=== PATIENT | female | born 1965 | race Caucasian/White ===

== ENCOUNTER → 2017-01-18 | Outpatient (CLI) | payer MEDICARE, BC, OTHER ==
--- NOTE | 2017-01-18 16:33 | WOMENS IMAGING REPORT ---
EXAM DESCRIPTION: BILAT SCREENING MAMMO W/CAD COMPLETED DATE/TIME: 01/18/2017 11:31 am REASON FOR STUDY: ROUTINE SCREENING;Z12.31 Z12.31 ENCNTR SCREEN MAMMOGRAM FOR MALIGNANT NEOPLASM OF LEIGH ANN COMPARISON: July 2011 TECHNIQUE: Standard craniocaudal and mediolateral oblique views of each breast recorded using Acuity[employer]ds[employer] l acquisition. LIMITATIONS: None. FINDINGS: No masses, calcifications or architectural distortion. No areas of suspicion. Read with the assistance of CAD. .[facility] - R2 Cenova Version 1.3 .[facility] - R2 Cenova Version 1.3 .[facility] - R2 Cenova Version 2.4 .[facility] - R2 Cenova Version 2.4 .[facility] - R2 [employer] Sawyer Version 9.2 IMPRESSION: NORMAL MAMMOGRAM. BIRADS 1. BREAST DENSITY: b. There are scattered areas of fibroglandular density. BIRAD: 1 NEGATIVE RECOMMENDATION: ROUTINE SCREENING COMMENT: The patient has been notified of the results by letter per SA requirements. Additional no tification policies are in place for contacting patient with suspicious or incomplete findings. Quality ID #[id number]: The [employer] recommends an annual screening mammogram for women aged 40 years or over. This facility utilizes a reminder system to ensure that all patients receive reminder letters, and/or direct phone calls for appointments. This includes reminders for routine scr eening mammograms, diagnostic mammograms, or other Breast Imaging Interventions when appropriate. Th is patient will be placed in the appropriate reminder system. The [employer] (ACR) has developed recommendations for screening MRI of the breast s in certain patient populations, to be used in conjunction with mammography. Breast MRI surveillanc e may be appropriate for women with more than 20% lifetime risk of developing breast cancer as deter mined by genetic testing, significant family history of the disease, or history of mantle radiation f or Hodgkins Disease. ACR Practice Guidelines 2008. TECHNICAL DOCUMENTATION: FINDING NUMBER: (1) ASSESSMENT: (1) JOB ID: [id number] [employer]- All Rights Reserved
== END ==
LOC: WI 11:14
PROVIDERS: ATTEND Physician Assistant Medical
DX: Z12.31 Encounter for screening mammogram for malignant neoplasm of breast (principal)
CPT/HCPCS: 77067; G0202

== ENCOUNTER 2017-04-28 04:17 | Inpatient (IN) | payer MEDICARE, BC, OTHER ==
[2017-04-28] MEDS ORDERED: MORPHINE SULFATE 10 MG/ML INJ IV ONE ×3 (04:28→06:25)
--- NOTE | 2017-04-28 04:45 | ER Document Report ---
ED General - General Chief Complaint: Leg Injury Stated Complaint: FALL,LEFT LEG PAIN Time Seen by Provider: 04/28/17 04:25 Notes: Patient is a 52-year-old female who presents with complaint of possible broken left leg. She says she was standing on kitchen counter trying to hang things about the cabinets. She slipped and fell. She said there is a brief moment that she does not remember after hitting the ground. She did hit her chin. She says she does not have severe headache. No neck pain. She is on blood thinners. She denies any vomiting since then. She says her only pain is really in her left leg she also has chronic low back pain which is unchanged from his chronic state. Patient says a small finishing nail from the molding of the cabinets did poke her in the right buttocks. She does have history of MS. She says she has chronic neuropathy in her feet which is unchanged. She is on MS Contin chronically for low back pain. She received fentanyl in the ambulance. No other complaints at this time. TRAVEL OUTSIDE OF THE [place] IN LAST 30 DAYS: No - Related Data Allergies/Adverse Reactions: cyclobenzaprine HCl [From Flexeril] Allergy (Verified 09/28/15 11:59) hydromorphone HCl [From Dilaudid] Allergy (Verified 09/28/15 11:59) prochlorperazine edisylate [From Compazine] Allergy (Verified 09/28/15 11:59) Sulfa (Sulfonamide Antibiotics) Allergy (Verified 09/28/15 11:59) tylenol #3 Adverse Reaction (Uncoded 09/28/15 11:59) Past Medical History - Social History Smoking Status: Unknown if Ever Smoked Frequency of alcohol use: None Drug Abuse: None Family History: Reviewed & Not Pertinent - Past Medical History Cardiac Medical History: Reports: Hx Hypercholesterolemia, Hx Hypertension Endocrine Medical History: Reports: Hx Diabetes Mellitus Type 2, Hx Hypothyroidism Renal/ Medical History: Reports: Hx Kidney Stones GI Medical History: Reports: Hx Diverticulitis Psychiatric Medical History: Reports: Hx Attention Deficit Hyperactivity Disorder, Hx Depression - anxiety Past Surgical History: Reports: Hx Section, Hx Cholecystectomy, Hx Hysterectomy, Hx Orthopedic Surgery - back x2, Hx Tonsillectomy - Immunizations Hx Diphtheria, Pertussis, Tetanus Vaccination: Yes Review of Systems - Review of Systems Notes: My Normal Review Basic REVIEW OF SYSTEMS: CONSTITUTIONAL : Denies fever, chills, or sweats. Denies recent illness. CARDIOVASCULAR: Denies chest pain. RESPIRATORY: Denies cough, cold, or chest congestion. Denies shortness of breath, difficulty breathing, or wheezing. GASTROINTESTINAL: Denies abdominal pain. Denies nausea, vomiting, or diarrhea. Denies constipation. Last BM: MUSCULOSKELETAL: Left lower leg pain. SKIN: Denies rash or skin lesions. NEUROLOGICAL: Probable loss of consciousness. Denies headache. Denies weakness or paralysis or loss of use of either side. Denies problems with gait or speech. Denies sensory or motor loss. ALL OTHER SYSTEMS REVIEWED AND NEGATIVE. Physical Exam - Vital signs Vitals: Temp Pulse Resp BP Pulse Ox 98.4 F 91 18 142/99 H 98 04/28/17 04:30 04/28/17 04:30 04/28/17 04:30 04/28/17 04:30 04/28/17 04:30 - Notes Notes: General Appearance: Well nourished, alert, cooperative, no acute distress, moderate obvious discomfort. Vitals: reviewed, See vital signs table. Head: no swelling or tenderness to the head Eyes: PERRL, EOMI, Conjuctiva clear Mouth: No decreasd moisture Throat: No tonsillar inflammation, No airway obstruction, No lymphadenopathy Neck: Supple, no neck tenderness, no step-offs or deformities to the neck. Lungs: No wheezing, No rales, No rhonci, No accessory muscle use, good air exchange bilaterally. Heart: Normal rate, Regular rythm, No murmur, no rub Abdomen: Normal BS, soft, No rigidity, No abdominal tenderness, No guarding, no rebound, Back: Tenderness to palpation of the lower back which the patient's is unchanged from its chronic state. She denies any new tenderness to palpation of her back. No step-offs or deformities. Extremities: strength 5/5 in all extremities, good pulses in all extremities, patient has obvious swelling to the anterior aspect of the left herring. Skin: warm, dry, appropriate color, no rash Neuro: speech clear, oriented x 3, normal affect, responds appropriately to questions. Course - Re-evaluation Re-evalutation: 04/28/17 05:12 I concerns the patient may be developing compartment syndrome. She has a classic fracture for swelling in her leg is increased even in the short time that she has been here. She started to get some numbness and tingling over lateral aspect of the leg. Her anterior and lateral compartments are firm. Posterior compartment is also starting to become firm. Still has good pulses. Still is good color in her foot. I did call and speak with Dr. Kirkland, orthopedist, who agrees to come evaluate the patient. 04/28/17 05:51 Dr. Kirkland at bedside 04/28/17 06:29 On reevaluation patient still has swelling and pain to the leg. Dr. Kirkland has evaluated patient and will be taking her emergently to the OR. She still has good pedal pulses in the foot and good color in the foot. I have ordered more pain medicine for her pain control. Dictation of this chart was performed using voice recognition software; therefore, there may be some unintended grammatical errors. - Vital Signs Vital signs: Temp Pulse Resp BP Pulse Ox 98.4 F 91 18 142/99 H 98 04/28/17 04:30 04/28/17 04:30 04/28/17 04:30 04/28/17 04:30 04/28/17 04:30 - Laboratory Result Diagrams: 04/28/17 05:27 04/28/17 05:27 Laboratory results interpreted by me: 04/28/17 04/28/17 05:27 05:27 WBC 16.2 H RDW 15.0 H Absolute Neutrophils 12.2 H Chloride 108 H - EKG Interpretation by Me Additional EKG results interpreted by me: 04/28/17 05:57 EKG is reviewed and interpreted by me. EKG shows normal sinus rhythm with rate of [address] segment elevation or depression. No ischemic T-wave inversions. [place] interval, QRS duration, QTc intervals are within normal range. Old EKG for comparison is from March 13, 2016. Discharge - Discharge Clinical Impression: Compartment syndrome of left lower extremity Qualifiers: Encounter type: initial encounter Qualified Code(s): T79.A22A - Traumatic compartment syndrome of left lower extremity, initial encounter Tibial plateau fracture, left Qualifiers: Encounter type: initial encounter Fracture type: closed Qualified Code(s): S82.142A - Displaced bicondylar fracture of left tibia, initial encounter for closed fracture Condition: Stable Disposition: ADMITTED INPATIENT Admitting Provider: Dr. Kirkland Unit Admitted: OR Referrals: MATILDE WOO MD [Primary Care Provider] - Follow up as needed
[2017-04-28] MEDS ORDERED: DIPH/PERTUSS(ACELL)/TETANUS VAC/PF 0.5 ML SYR (>=10YO) IM ONE (05:17)
--- NOTE | 2017-04-28 05:32 | RADIOLOGY REPORT (SQ) ---
EXAM DESCRIPTION: TIBIA FIBULA LEFT COMPLETED DATE/TIME: 04/28/2017 5:05 am REASON FOR STUDY: trauma , fall. Pain at the proximal left tibia/ fibula. COMPARISON: None. NUMBER OF VIEWS: Two views. TECHNIQUE: Two radiographic images acquired of the left tibia and fibula to include the knee and ank le in at least one projection. LIMITATIONS: None. FINDINGS: MINERALIZATION: Normal. BONES: There is a comminuted, displaced, spiral, acute fracture at the proximal tibia extending to th e lateral tibial plateau and at the knee joint. There is depression of the lateral tibial plateau. There is partially visualized lipohemarthrosis at the left knee joint. There is a comminuted, displaced, acute fracture at the proximal fibula. There is a transverse nondisplaced fracture at the lateral malleolus with well corticated margins and no significant callus formation at the site, suggestive of a remote nonunion fracture. SOFT TISSUES: There is soft tissue swelling at the upper leg. IMPRESSION: 1. Acute, comminuted, displaced, intra-articular fracture at the proximal left tibia wi th depression of the lateral tibial plateau and lipohemarthrosis at the knee joint. 2. Acute, comminuted, displaced fracture at the proximal fibula. 3. Nondisplaced, transverse fracture at the lateral malleolus with well corticated margins, suggestiv e of a remote nonunion fracture. Please correlate with clinical history and point tenderness. TECHNICAL DOCUMENTATION: JOB ID: [id number] 2010 [employer]- All Rights Reserved
[2017-04-28 05:52] LABS: ABSOLUTE BASOPHILS # (AUTO) 0.1 10^3/uL (0.0-0.2); ABSOLUTE EOSINOPHILS # (AUTO) 0.2 10^3/uL (0.0-0.6); ABSOLUTE LYMPHOCYTES (AUTO) 2.9 10^3/uL (0.5-4.7); ABSOLUTE MONOCYTES (AUTO) 0.7 10^3/uL (0.1-1.4); ABSOLUTE NEUT (AUTO) 12.2 10^3/uL (1.7-8.2); BASOPHILS % (AUTO) 0.9 % (0-2); EOSINOPHILS % (AUTO) 1.5 % (0-6); HEMATOCRIT 41.1 % (36.0-47.0); HEMOGLOBIN 13.5 g/dL (12.0-15.5); LYMPHOCYTES % (AUTO) 17.8 % (13-45); MEAN CORPUSCULAR HEMOGLOBIN 29.4 pg (27.0-33.4); MEAN CORPUSCULAR HGB CONC 32.8 g/dL (32.0-36.0); MEAN CORPUSCULAR VOLUME 90 fl (80-97); MONOCYTES % (AUTO) 4.5 % (3-13); PLATELET COUNT 293 10^3/uL (150-450); RED BLOOD COUNT 4.59 10^6/uL (3.72-5.28); SEGMENTED NEUTROPHILS % (AUTO) 75.3 % (42-78); TOTAL CELLS COUNTED % (AUTO) 100 %; WHITE BLOOD COUNT 16.2 10^3/uL (4.0-10.5)
[2017-04-28 06:05] LABS: INTERNATIONAL RATION (INR) 0.85; PROTHROMBIN TIME 12.2 SEC (11.4-15.4)
[2017-04-28 06:07] LABS: ANION GAP 12 (5-19); BLOOD UREA NITROGEN 15 mg/dL (7-20); CALCIUM 9.7 mg/dL (8.4-10.2); CARBON DIOXIDE 23 mmol/L (22-30); CHLORIDE 108 mmol/L (98-107); GLUCOSE 87 mg/dL (75-110); POTASSIUM 4.1 mmol/L (3.6-5.0); SODIUM 143.4 mmol/L (137-145)
--- NOTE | 2017-04-28 06:25 | PDOC H&P ---
History of Present Illness Admission Date/PCP: MATILDE WOO MD Patient complains of: Left lower extremity pain History of Present Illness: MIKKI CHAVEZ is a 52 year old female Past Medical History Cardiac Medical History: Reports: Hyperlipidema, Hypertension Endocrine Medical History: Reports: Diabetes Mellitus Type 2, Hypothyroidism GI Medical History: Reports: Diverticulitis Psychiatric Medical History: Reports: Attention Deficit Hyperactivity Disorder, Depression - anxiety Past Surgical History Past Surgical History: Reports: Section, Cholecystectomy, Hysterectomy , Orthopedic Surgery - back x2, Tonsillectomy Social History Information Source: Patient, [facility] Records Smoking Status: Unknown if Ever Smoked Frequency of Alcohol Use: None Hx Recreational Drug Use: No Hx Prescription Drug Abuse: No Family History Family History: Reviewed & Not Pertinent Parental Family History Reviewed: No Children Family History Reviewed: Yes Sibling(s) Family History Reviewed.: No Medication/Allergy Home Medications: Furosemide [Lasix 80 mg Tablet] 40 mg PO DAILY PRN 05/07/12 Levothyroxine Sodium [Synthroid 0.025 mg Tablet] 112 mcg PO DAILY 05/07/12 Morphine Sulfate [Ms Contin] 120 mg PO QID 05/07/12 Oxycodone HCl 1 tab PO Q4HP PRN 09/28/15 Oxycodone HCl 2 tab PO Q4HP PRN 09/28/15 Allopurinol [Allopurinol] 100 mg PO BID 03/13/16 Alprazolam [Alprazolam] 0.5 mg PO BID PRN 03/13/16 Dextroamphetamine/Amphetamine [Dextroamp-Amphet ER 30 mg Cap] 30 mg PO DAILY Diazepam [Diazepam] 5 mg PO DAILY PRN 03/13/16 Diazepam [Diazepam] 10 mg PO DAILY PRN 03/13/16 Escitalopram Oxalate [Escitalopram Oxalate] 20 mg PO DAILY 03/13/16 Glyburide [Glyburide] 1.25 mg PO DAILY 03/13/16 Ibuprofen [Ibuprofen] 800 mg PO DAILY 03/13/16 Nebivolol HCl [Bystolic] 10 mg PO DAILY 03/13/16 Ondansetron [Ondansetron Odt] 8 mg PO Q8H PRN 03/13/16 Simvastatin [Zocor 10 mg Tablet] 10 mg PO QHS 03/13/16 Allergies/Adverse Reactions: cyclobenzaprine HCl [From Flexeril] Allergy (Verified 09/28/15 11:59) hydromorphone HCl [From Dilaudid] Allergy (Verified 09/28/15 11:59) prochlorperazine edisylate [From Compazine] Allergy (Verified 09/28/15 11:59) Sulfa (Sulfonamide Antibiotics) Allergy (Verified 09/28/15 11:59) tylenol #3 Adverse Reaction (Uncoded 09/28/15 11:59) Review of Systems All systems: as per H Physical Exam Vital Signs: Temp Pulse Resp BP Pulse Ox 36.9 C 91 18 142/99 H 98 04/28/17 04:30 04/28/17 04:30 04/28/17 04:30 04/28/17 04:30 04/28/17 04:30 Physical Exam: Patient is an overweight if not obese middle-aged white female lying on emergency room gurney. Left lower extremities elevated on pillows. The patient is quite distraught and frequently tearful throughout the evaluation. General appearance: PRESENT: disheveled, obese, severe distress Head exam: PRESENT: normocephalic, other - 7 cm area of ecchymosis underneath the chin Respiratory exam: PRESENT: unlabored Cardiovascular exam: PRESENT: RRR Vascular exam: PRESENT: normal capillary refill GI/Abdominal exam: PRESENT: soft Rectal exam: PRESENT: deferred Extremities exam: PRESENT: other - Left lower extremities elevated on pillows. Toenails are coated with red lao. There is brisk capillary refill. Passive range of motion of the great toe causes considerable discomfort. Compartments anterior and posterior are firm probably greater in the anterior and lateral compartments. There is marked tenderness to palpation. Skin is intact. There is no abrasions or erythema. Sensory examination is complicated by prior diagnosis of peripheral neuropathy. Motor function is limited by pain. Neurological exam: PRESENT: alert, awake, oriented to person, oriented to place , oriented to time, oriented to situation. ABSENT: motor sensory deficit Psychiatric exam: PRESENT: agitated, anxious Skin exam: PRESENT: dry, intact, warm. ABSENT: cyanosis, rash Results Laboratory Results: 04/28/17 05:27 04/28/17 05:27 04/28/17 04/28/17 05:27 05:27 WBC 16.2 H RBC 4.59 Hgb 13.5 Hct 41.1 MCV 90 MCH 29.4 MCHC 32.8 RDW 15.0 H Plt Count 293 Seg Neutrophils % 75.3 Lymphocytes % 17.8 Monocytes % 4.5 Eosinophils % 1.5 Basophils % 0.9 Absolute Neutrophils 12.2 H Absolute Lymphocytes 2.9 Absolute Monocytes 0.7 Absolute Eosinophils 0.2 Absolute Basophils 0.1 Sodium 143.4 Potassium 4.1 Chloride 108 H Carbon Dioxide 23 Anion Gap 12 BUN 15 Creatinine 0.86 Est GFR ( Amer) > 60 Est GFR (Non-Af Amer) > 60 Glucose 87 Calcium 9.7 Impressions: Tibia/Fibula X-Ray 04/28/17 04:25 IMPRESSION: 1. Acute, comminuted, displaced, intra-articular fracture at the proximal left tibia with depression of the lateral tibial plateau and lipohemarthrosis at the knee joint. 2. Acute, comminuted, displaced fracture at the proximal fibula. 3. Nondisplaced, transverse fracture at the lateral malleolus with well corticated margins, suggestive of a remote nonunion fracture. Please correlate with clinical history and point tenderness. Status: Imported from PACS Assessment & Plan - Diagnosis (1) Tibial plateau fracture, left Qualifiers: Encounter type: initial encounter Fracture type: closed Qualified Code(s) : S82.142A - Displaced bicondylar fracture of left tibia, initial encounter for closed fracture Is this a current diagnosis for this admission?: Yes Plan: 52-year-old white female with multiple comorbidities including multiple sclerosis diabetes and hypertension and chronic low back pain with peripheral neuropathy who fell off a countertop and sustained a left tibial plateau fracture. This is an extensive and highly comminuted fracture. Patient currently has a mean arterial pressure of approximately 112 and compartment pressures are measuring 80. Plan will be to proceed to the operating room in emergent fashion for application of external fixator and lower extremity fasciotomies. (2) Compartment syndrome of left lower extremity Qualifiers: Encounter type: initial encounter Qualified Code(s): T79.A22A - Traumatic compartment syndrome of left lower extremity, initial encounter Is this a current diagnosis for this admission?: Yes Plan: Plan for 4 compartment fasciotomies left lower extremity - Time Time Spent: 50 to 70 Minutes Anticipated discharge: Other Within: Other - Plan Summary Plan Summary: Emergent surgical intervention
--- NOTE | 2017-04-28 06:27 | Operative Report ---
Operative Report DATE OF SURGERY: 04/28/17 PREOPERATIVE DIAGNOSIS: Left lower extremity compartment syndrome POSTOPERATIVE DIAGNOSIS: Same OPERATION: Left lower extremity compartment pressure monitoring SURGEON: RASHAD JARRETT ANESTHESIA: Other ESTIMATED BLOOD LOSS: Minimal PROCEDURE: Under sterile conditions the [employer] compartment measuring device is advanced into the anterior and lateral compartments of the left lower extremity. Compartment pressures measured 80 mm. The device is removed. The portal closed using a Band-Aid.
[2017-04-28] MEDS ORDERED: MIDAZOLAM 2 MG/2 ML INJ ONE (06:34)
[2017-04-28] MEDS ORDERED: FENTANYL CITRATE INJ/PF 250 MCG/5 ML AMPULE ONE (06:34)
[2017-04-28] MEDS ORDERED: HYDROMORPHONE HCL INJ/PF 2 MG/ML AMPULE ONE (06:34)
[2017-04-28] MEDS ORDERED: EPHEDRINE SULFATE INJ 50 MG/1 ML AMPULE ONE (06:35)
[2017-04-28] MEDS ORDERED: PROPOFOL INJ 200 MG/20 ML VIAL IV ONE (06:35)
--- NOTE | 2017-04-28 06:49 | RADIOLOGY REPORT (SQ) ---
EXAM DESCRIPTION: CHEST SINGLE VIEW COMPLETED DATE/TIME: 04/28/2017 6:32 am REASON FOR STUDY: pre op for left tibia surgery due to fracture. COMPARISON: Chest x-ray 03/13/2016. Left tibia/fibula x-ray 04/28/2017. EXAM PARAMETERS: NUMBER OF VIEWS: One view. TECHNIQUE: Single frontal radiographic view of the chest acquired. RADIATION DOSE: NA LIMITATIONS: None. FINDINGS: LUNGS AND PLEURA: No consolidation, pneumothorax or pleural effusion. MEDIASTINUM AND HILAR STRUCTURES: No masses. Contour normal. HEART AND VASCULAR STRUCTURES: Heart normal in size. Normal vasculature. BONES: No acute findings. HARDWARE: None in the chest. IMPRESSION: No acute radiographic finding in the chest. TECHNICAL DOCUMENTATION: JOB ID: [id number] 2010 [employer]- All Rights Reserved
[2017-04-28] MEDS ORDERED: MORPHINE SULFATE 10 MG/ML INJ ONE ×2 (06:52→08:37)
[2017-04-28] MEDS ORDERED: CEFAZOLIN INJ 1 GM VIAL ONE (06:56)
[2017-04-28] MEDS ORDERED: FENTANYL CITRATE INJ/PF 100 MCG/2 ML AMPUL IV PRN ×3 (07:39)
[2017-04-28] MEDS ORDERED: DIPHENHYDRAMINE HCL 50 MG/ML VIAL IV PRN (07:39)
--- NOTE | 2017-04-28 07:49 | Operative Report ---
Operative Report DATE OF SURGERY: 04/28/17 PREOPERATIVE DIAGNOSIS: Left lower extremity compartment syndrome POSTOPERATIVE DIAGNOSIS: Same OPERATION: Application of external fixator. 4 compartment fasciotomy SURGEON: RASHAD JARRETT ANESTHESIA: GA ESTIMATED BLOOD LOSS: Minimal PROCEDURE: With the patient supine on the operating table the left lower extremities prepped and draped in sterile fashion. A 5 mm Steinmann pins are placed into the lateral distal femur by approximately 10 cm. Likewise pins were placed into the middle third of the tibia through an anterior medial approach. The pins were then connected by an external fixator system. Under fluoroscopic guidance an attempt is made for reduction of the fracture. However the comminution of the fracture and its instability make any attempt at reduction fairly frustrating and ineffective. Apposition is excepted. Subsequently a 15 blade is used over the anterolateral aspect of the lower leg and anterior and lateral compartment fasciotomies were performed. Similarly an incision was made over the medial aspect of the lower leg and posterior superficial and deep fasciotomies were performed. At this point hemostasis obtained with electrocautery. Xeroform was placed onto the fasciotomy sites. A compressive wrap was placed over the lower extremity. The patient's return to PACU in satisfactory condition.
[2017-04-28] MEDS: LORAZEPAM INJ 2 MG/1 ML VIAL ONE ×2 (08:00→08:10)
[2017-04-28] MEDS: MORPHINE SULFATE 10 MG/ML INJ IV PRN ×6 (08:25→22:59)
--- NOTE | 2017-04-28 08:32 | EKG REPORT ---
SEVERITY:- BORDERLINE ECG - SINUS RHYTHM PROBABLE LEFT ATRIAL ABNORMALITY : Confirmed by: Jacob Tafoya MD 28-Apr-2017 08:31:35
[2017-04-28] MEDS ORDERED: RINGERS SOLUTION,LACTATED 1,000 ML IV PRN (08:45)
[2017-04-28] MEDS ORDERED: OXYCODONE HCL IR 5 MG TABLET PO PRN (08:50)
[2017-04-28] MEDS ORDERED: SUCCINYLCHOLINE CHLORIDE INJ 200 MG/10 ML VIAL ONE (09:59)
[2017-04-28] MEDS ORDERED: LIDOCAINE 2% INJ-PF (20 MG/ML) 2 ML AMPUL ONE (09:59)
[2017-04-28] MEDS: ASPIRIN 81 MG TABLET, CHEWABLE PO SCH (11:40)
[2017-04-28] MEDS ORDERED: PROMETHAZINE HCL 25 MG TABLET PO PRN (11:58)
[2017-04-28] MEDS ORDERED: HYDRALAZINE HCL INJ/PF 20 MG/1 ML SDV IV PRN (11:59)
[2017-04-28] MEDS ORDERED: DEXTROSE 40% GEL 15 GM TUBE PO PRN ×2 (12:26)
[2017-04-28] MEDS ORDERED: DEXTROSE 50%-WATER 25 GM/50 ML DISP.SYRIN IV PRN ×2 (12:26)
[2017-04-28] MEDS ORDERED: GLUCAGON,HUMAN RECOMB 1 MG INJ IM PRN (12:26)
--- NOTE | 2017-04-28 12:37 | PDOC CONSULTATION ---
Consultation Consult Date: 04/28/17 Attending physician:: Dr Kirkland Consult reason:: Elevated blood pressure after surgery History of Present Illness Admission Date/PCP: 04/28/17 06:36 MATILDE WOO MD History of Present Illness: MIKKI CHAVEZ is a 52 year old female who presented with complaint of possible broken left leg. She stated she was standing on a kitchen counter trying to hang things about the cabinets. She slipped and fell. She did hit her chin. She only complained of pain in her left leg. Patient was evaluated in emergency room and x-ray was significant because of left tibia fracture. Patient was admitted under Dr. Kirkland service. Patient underwent surgery on the day of consultation. Postoperatively was noted that blood pressure was elevated and the hospitalist service was contacted to assist. At the time of evaluation patient is somewhat sedated and but relates that her major source of pain interestingly is her lower back pain. She admits to being on morphine for pain and blood pressure medications including clonidine and nevibolol Past Medical History Cardiac Medical History: Reports: Hyperlipidema, Hypertension Pulmonary Medical History: Reports: None EENT Medical History: Reports: None Neurological Medical History: Reports: None Endocrine Medical History: Reports: Diabetes Mellitus Type 2, Hypothyroidism Renal/ Medical History: Reports: None Malignancy Medical History: Reports: None GI Medical History: Reports: Diverticulitis Musculoskeltal Medical History: Reports: None Skin Medical History: Reports: None Psychiatric Medical History: Reports: Attention Deficit Hyperactivity Disorder, Depression - anxiety Traumatic Medical History: Reports: None Hematology: Reports: None Infectious Medical History: Reports: None Past Surgical History Past Surgical History: Reports: Section, Cholecystectomy, Hysterectomy , Orthopedic Surgery - back x2, Tonsillectomy Social History Information Source: Patient Smoking Status: Unknown if Ever Smoked Frequency of Alcohol Use: None Hx Recreational Drug Use: No Hx Prescription Drug Abuse: No - Advance Directive Resuscitation Status: Full Code Family History Family History: Hypertension Parental Family History Reviewed: Yes Children Family History Reviewed: Yes Sibling(s) Family History Reviewed.: Yes Medication/Allergy Home Medications: Clonidine HCl [Catapres 0.2 mg Tablet] 0.2 mg PO DAILY 04/28/17 Escitalopram Oxalate [Lexapro] 20 mg PO DAILY 04/28/17 Ibuprofen [Motrin 800 mg Tablet] 800 mg PO TID 04/28/17 Morphine Sulfate [Morphine Ir 30 mg Tablet] 30 mg PO Q8 04/28/17 Morphine Sulfate [Morphine Sulfate ER] 15 mg PO Q8 04/28/17 Nebivolol HCl [Bystolic 10 mg Tablet] 10 mg PO DAILY 04/28/17 Potassium Chloride [Klor-Con 10 Meq Tablet.sa] 10 meq PO BID 04/28/17 Promethazine HCl [Phenergan 25 mg Tablet] 25 mg PO Q6HP PRN 04/28/17 Allergies/Adverse Reactions: cyclobenzaprine HCl [From Flexeril] Allergy (Verified 09/28/15 11:59) hydromorphone HCl [From Dilaudid] Allergy (Verified 09/28/15 11:59) prochlorperazine edisylate [From Compazine] Allergy (Verified 09/28/15 11:59) Sulfa (Sulfonamide Antibiotics) Allergy (Verified 09/28/15 11:59) tylenol #3 Adverse Reaction (Uncoded 09/28/15 11:59) Review of Systems ROS unobtainable: Due to mental status Physical Exam Vital Signs: Temp Pulse Resp BP Pulse Ox 98.1 F 98 19 141/77 H 97 04/28/17 08:59 04/28/17 08:59 04/28/17 08:59 04/28/17 08:59 04/28/17 10:25 Intake & Output 04/27/17 04/28/17 04/29/17 06:59 06:59 06:59 Intake Total 1300 Output Total 5 Balance 1295 General appearance: PRESENT: cooperative, obese, other - mildly sedated Head exam: PRESENT: atraumatic, normocephalic Eye exam: PRESENT: EOMI, PERRLA Ear exam: PRESENT: normal external ear exam Mouth exam: PRESENT: other - Purplish discoloration to chin Neck exam: PRESENT: full ROM. ABSENT: JVD, lymphadenopathy, thyromegaly Respiratory exam: PRESENT: clear to auscultation kim Cardiovascular exam: PRESENT: RRR. ABSENT: diastolic murmur, systolic murmur Vascular exam: PRESENT: normal capillary refill GI/Abdominal exam: PRESENT: normal bowel sounds, soft. ABSENT: tenderness Extremities exam: PRESENT: other - Orthopedic gadgets noted to left lower extremity Neurological exam: PRESENT: alert, oriented to person, oriented to place Psychiatric exam: PRESENT: appropriate affect, normal mood Skin exam: PRESENT: intact, normal color Results Impressions: Tibia/Fibula X-Ray 04/28/17 04:25 IMPRESSION: 1. Acute, comminuted, displaced, intra-articular fracture at the proximal left tibia with depression of the lateral tibial plateau and lipohemarthrosis at the knee joint. 2. Acute, comminuted, displaced fracture at the proximal fibula. 3. Nondisplaced, transverse fracture at the lateral malleolus with well corticated margins, suggestive of a remote nonunion fracture. Please correlate with clinical history and point tenderness. Chest X-Ray 04/28/17 05:17 IMPRESSION: No acute radiographic finding in the chest. Assessment & Plan - Diagnosis (1) HTN (hypertension) Qualifiers: Hypertension type: essential hypertension Qualified Code(s): I10 - Essential (primary) hypertension Is this a current diagnosis for this admission?: Yes Plan: Will restart outpatient regimen. To order hydralazine IV for rescue. Nurse had been advised as to treat pain since may be exacerbating blood pressure control (2) Compartment syndrome of left lower extremity Qualifiers: Encounter type: initial encounter Qualified Code(s): T79.A22A - Traumatic compartment syndrome of left lower extremity, initial encounter Is this a current diagnosis for this admission?: Yes Plan: As per surgery (3) Tibial plateau fracture, left Qualifiers: Encounter type: initial encounter Fracture type: closed Qualified Code(s) : S82.142A - Displaced bicondylar fracture of left tibia, initial encounter for closed fracture Is this a current diagnosis for this admission?: Yes Plan: As per surgery (4) Diabetes Qualifiers: Diabetes mellitus type: type 2 Diabetes mellitus complication status: with unspecified complications Diabetes mellitus [facility] insulin use: without termite control servicer use Qualified Code(s): E11.8 - Type 2 diabetes mellitus with unspecified complications Is this a current diagnosis for this admission?: Yes Plan: To place patient on Humalog sliding scale and bedside glucose before meals and at bedtime (5) Chronic pain Qualifiers: Chronic pain type: chronic pain syndrome Qualified Code(s): G89.4 - Chronic pain syndrome Is this a current diagnosis for this admission?: Yes Plan: Patient suffers from chronic back pain for which is medicated in the outpatient setting with morphine extended release and short-acting. Anticipate problems with pain management (6) Opioid dependence Qualifiers: Substance use status: with unspecified opioid-induced disorder Qualified Code(s): F11.29 - Opioid dependence with unspecified opioid-induced disorder Is this a current diagnosis for this admission?: Yes Plan: Patient in short and long-acting morphine. Pain management may pose a problem on this patient. Will start Neurontin. - Time Time Spent: 50 to 70 Minutes Medications reviewed and adjusted accordingly: Yes Anticipated discharge: SNF - Disposition will depend on primary service - Inpatient Certification Medical Necessity: Other - As per primary service
--- NOTE | 2017-04-28 14:08 | RADIOLOGY REPORT (SQ) ---
EXAM DESCRIPTION: CT LT LOWER EXTREMITY WITHOUT COMPLETED DATE/TIME: 04/28/2017 1:45 pm REASON FOR STUDY: CT scan left knee pre-op planning COMPARISON: None. TECHNIQUE: Axial imaging performed through the left knee with reformatted coronal and sagittal imagi ng windowed for bone and soft tissues. Images saved to PACS. 3D IMAGING: Were 3D images as MIP, SSD, or volume rendering performed at the work station? Yes. All CT scanners at this facility use dose modulation, iterative reconstruction, and/or weight based d osing when appropriate to reduce radiation dose to as low as reasonably achievable (ALARA). [facility]: Dose Right [facility]: CareDose [facility]: Dose Right [facility]: Teradose 4D [facility]: [employer] LIMITATIONS: None. RADIATION DOSE: CT Rad equipment meets quality standard of care and radiation dose reduction techniq ues were employed. CTDIvol: 4.1 mGy. DLP: 134 mGy-cm. mGy. FINDINGS: Highly comminuted medial and lateral tibial plateau fracture with depression of the latera l plateau at least 14 mm. Fracture lines extend into the tibial diaphysis in the oblique coronal [place]. Comminuted fracture of the fibular head with minimal displacement. Femoral condyles are intact. IMPRESSION: Comminuted fractures of the tibial plateau, tibial shaft and fibular head. TECHNICAL DOCUMENTATION: JOB ID: [id number] Quality ID # [id number]: Final reports with documentation of one or more dose reduction techniques (e.g., Au tomated exposure control, adjustment of the mA and/or kV according to patient size, use of iterative reconstruction technique) 2010 [employer]- All Rights Reserved
[2017-04-28] MEDS: MORPHINE SULFATE SR 15 MG TABLET PO SCH ×2 (14:56→20:48)
[2017-04-28] MEDS: MORPHINE SULFATE IR 30 MG TABLET PO SCH ×2 (14:57→20:48)
[2017-04-28] MEDS: GABAPENTIN 300 MG CAPSULE PO SCH ×2 (14:57→20:48)
[2017-04-28] MEDS: CEFAZOLIN 2 GM/D5W RTU 2 GM/50 ML RTUPB IV SCH ×2 (16:50→20:47)
[2017-04-28] MEDS: POTASSIUM CHLORIDE 10 MEQ TABLET.SA PO SCH (17:47)
--- NOTE | 2017-04-28 17:55 | RADIOLOGY REPORT (SQ) ---
EXAM DESCRIPTION: TIBIA FIBULA LEFT COMPLETED DATE/TIME: 04/28/2017 4:52 pm REASON FOR STUDY: LT TIB/FIB COMPARISON: 04/28/2017 FLUOROSCOPY TIME: 2 images saved to PACS. TECHNIQUE: Intra-operative images acquired during surgical procedure to evaluate progress. NUMBER OF IMAGES: 2 LIMITATIONS: None. FINDINGS: 2 intraoperative fluoroscopic spot images were obtained and labeled as patient Niru cerda. These images are submitted for administrative purposes only. Please see the operative report for details regarding this procedure. IMPRESSION: IMAGE(S) OBTAINED DURING PROCEDURE. COMMENT: Quality ID 145: Final reports for procedures using fluoroscopy that document radiation exp osure indices, or exposure time and number of fluorographic images (if radiation exposure indices are not available) Please consult full operative report of the attending physician for description of the procedure. TECHNICAL DOCUMENTATION: JOB ID: [id number] [employer]- All Rights Reserved
[2017-04-29] MEDS: MORPHINE SULFATE SR 15 MG TABLET PO SCH ×3 (05:22→23:00)
[2017-04-29] MEDS: GABAPENTIN 300 MG CAPSULE PO SCH ×3 (05:22→23:02)
[2017-04-29] MEDS: MORPHINE SULFATE IR 30 MG TABLET PO SCH ×3 (05:25→23:01)
[2017-04-29 06:24] LABS: HEMATOCRIT 33.2 % (36.0-47.0); MEAN CORPUSCULAR HEMOGLOBIN 30.1 pg (27.0-33.4); MEAN CORPUSCULAR HGB CONC 34.2 g/dL (32.0-36.0); MEAN CORPUSCULAR VOLUME 88 fl (80-97); PLATELET COUNT 215 10^3/uL (150-450); RED BLOOD COUNT 3.77 10^6/uL (3.72-5.28); RED CELL DISTRIBUTION WIDTH 14.4 % (11.5-14.0); WHITE BLOOD COUNT 10.6 10^3/uL (4.0-10.5)
[2017-04-29 06:30] LABS: HEMOGLOBIN 11.3 g/dL (12.0-15.5)
[2017-04-29 06:35] LABS: ANION GAP 6 (5-19); BLOOD UREA NITROGEN 8 mg/dL (7-20); CALCIUM 8.8 mg/dL (8.4-10.2); CARBON DIOXIDE 28 mmol/L (22-30); CHLORIDE 105 mmol/L (98-107); GLUCOSE 163 mg/dL (75-110); POTASSIUM 3.5 mmol/L (3.6-5.0); SODIUM 138.9 mmol/L (137-145)
[2017-04-29] MEDS: MORPHINE SULFATE 10 MG/ML INJ IV PRN ×3 (07:18→11:04)
--- NOTE | 2017-04-29 07:18 | PDOC PROGRESS REPORT ---
Subjective Progress Note for:: 04/29/17 Reason For Visit: COMPARTMENT SYNDROME OF LEFT LOWER EXTREMITY 52-year-old white female postop day 1 status post fasciotomies and application of external fixator for a left tibial plateau fracture and subsequent compartment syndrome Physical Exam Vital Signs: Temp Pulse Resp BP Pulse Ox 38.1 C H 126 H 18 145/91 H 95 04/29/17 03:11 04/29/17 03:11 04/29/17 03:11 04/29/17 03:11 04/29/17 03:11 Intake & Output 04/28/17 04/29/17 04/30/17 06:59 06:59 06:59 Intake Total 3230 Output Total 1930 Balance 1300 Weight 99.2 kg General appearance: PRESENT: no acute distress Head exam: PRESENT: normocephalic Respiratory exam: PRESENT: unlabored Cardiovascular exam: PRESENT: RRR Pulses: PRESENT: +1 pedal pulses bilateral Vascular exam: PRESENT: normal capillary refill GI/Abdominal exam: PRESENT: soft Rectal exam: PRESENT: deferred Extremities exam: PRESENT: other - Left lower extremity wrapped in an external fixator. Passive range of motion of the great toe was without significant discomfort. Passive range of motion of the ankle causes more discomfort. There is some drainage about the proximal aspect of the dressing consistent with the fasciotomy sites. There is brisk capillary refill. Sensory examination is intact. Neurological exam: PRESENT: alert, awake, oriented to person, oriented to place , oriented to time, oriented to situation. ABSENT: motor sensory deficit Psychiatric exam: PRESENT: appropriate affect, normal mood. ABSENT: homicidal ideation, suicidal ideation Skin exam: PRESENT: dry, intact, warm. ABSENT: cyanosis, rash Results Laboratory Results: 04/29/17 05:17 04/29/17 05:17 04/29/17 04/29/17 05:17 05:17 WBC 10.6 H RBC 3.77 Hgb 11.3 L D Hct 33.2 L MCV 88 MCH 30.1 MCHC 34.2 RDW 14.4 H Plt Count 215 Sodium 138.9 Potassium 3.5 L Chloride 105 Carbon Dioxide 28 Anion Gap 6 BUN 8 Creatinine 0.72 Est GFR ( Amer) > 60 Est GFR (Non-Af Amer) > 60 Glucose 163 H Calcium 8.8 Impressions: Lower Extremity CT 04/28/17 00:00 IMPRESSION: Comminuted fractures of the tibial plateau, tibial shaft and fibular head. Tibia/Fibula X-Ray 04/28/17 04:25 IMPRESSION: 1. Acute, comminuted, displaced, intra-articular fracture at the proximal left tibia with depression of the lateral tibial plateau and lipohemarthrosis at the knee joint. 2. Acute, comminuted, displaced fracture at the proximal fibula. 3. Nondisplaced, transverse fracture at the lateral malleolus with well corticated margins, suggestive of a remote nonunion fracture. Please correlate with clinical history and point tenderness. Chest X-Ray 04/28/17 05:17 IMPRESSION: No acute radiographic finding in the chest. Status: Imported from PACS Assessment & Plan - Diagnosis (1) Tibial plateau fracture, left Qualifiers: Encounter type: initial encounter Fracture type: closed Qualified Code(s) : S82.142A - Displaced bicondylar fracture of left tibia, initial encounter for closed fracture Is this a current diagnosis for this admission?: Yes (2) Compartment syndrome of left lower extremity Qualifiers: Encounter type: initial encounter Qualified Code(s): T79.A22A - Traumatic compartment syndrome of left lower extremity, initial encounter Is this a current diagnosis for this admission?: Yes (3) HTN (hypertension) Qualifiers: Hypertension type: essential hypertension Qualified Code(s): I10 - Essential (primary) hypertension Is this a current diagnosis for this admission?: Yes Plan: Appreciate the hospitalist input in terms of hypertension management (4) Opioid dependence Qualifiers: Substance use status: with unspecified opioid-induced disorder Qualified Code(s): F11.29 - Opioid dependence with unspecified opioid-induced disorder Is this a current diagnosis for this admission?: Yes Plan: Patient's pain management as an outpatient was handled by Dr. Mckeon from the [facility] group. I requested input from our pain management service in terms of in-hospital pain management. (5) Diabetes Qualifiers: Diabetes mellitus type: type 2 Diabetes mellitus complication status: with unspecified complications Diabetes mellitus senior care insulin use: without senior care use Qualified Code(s): E11.8 - Type 2 diabetes mellitus with unspecified complications Is this a current diagnosis for this admission?: Yes Plan: Adequately controlled on current regimen - Time Time Spent with patient: 15-24 minutes Anticipated discharge: SNF Within: Other - Plan Summary Plan Summary: Patient seems to be doing relatively well status post the first stage of the procedure. Next stage of the procedure will be an open reduction internal fixation of the tibial plateau fracture. Will await resolution of some of the soft tissue aspects of the compartment syndrome before we embark on this. This will probably be Sunday.
--- NOTE | 2017-04-29 08:52 | RADIOLOGY REPORT (SQ) ---
EXAM DESCRIPTION: NO CHG FLUORO COMPLETE DATE/TIME: 04/28/2017 4:52 pm REASON FOR STUDY: LT TIB/FIB FINDINGS: Please see combined report for performance of procedure and radiologic supervision and int erpretation. IMPRESSION: Please see combined report for performance of procedure and radiologic supervision and i nterpretation.
[2017-04-29] MEDS: CLONIDINE HCL 0.2 MG TABLET PO SCH (09:40)
[2017-04-29] MEDS: ASPIRIN 81 MG TABLET, CHEWABLE PO SCH (09:40)
[2017-04-29] MEDS: POTASSIUM CHLORIDE 10 MEQ TABLET.SA PO SCH ×2 (09:40→17:42)
[2017-04-29] MEDS: NEBIVOLOL HCL 10 MG TABLET PO SCH (09:48)
[2017-04-29] MEDS: ESCITALOPRAM OXALATE 10 MG TABLET PO SCH (09:52)
[2017-04-29] MEDS: INSULIN LISPRO 100 UNIT/ML 3 ML VIAL SUBCUT PRN (09:55)
--- NOTE | 2017-04-29 17:18 | PDOC PROGRESS REPORT ---
Subjective Progress Note for:: 04/29/17 Subjective:: Patient is having some left leg pain though it does not seem severe, she was sleeping when I came into the room. On awakening she is able to converse with me without difficulty. No chest pain or difficulty breathing. No headache. Seems to remember most of what happened over the last few days but her memory is a little bit fuzzy. Her daughters and cousin are in the room. Reason For Visit: COMPARTMENT SYNDROME OF LEFT LOWER EXTREMITY Physical Exam Vital Signs: Temp Pulse Resp BP Pulse Ox 100.5 F H 126 H 18 145/91 H 95 04/29/17 03:11 04/29/17 03:11 04/29/17 03:11 04/29/17 03:11 04/29/17 03:11 Intake & Output 04/28/17 04/29/17 04/30/17 06:59 06:59 06:59 Intake Total 3230 426 Output Total 1930 Balance 1300 426 Weight 99.2 kg General appearance: PRESENT: no acute distress, cooperative Eye exam: PRESENT: conjunctiva pink Mouth exam: PRESENT: moist, tongue midline Respiratory exam: PRESENT: clear to auscultation kim, unlabored Cardiovascular exam: PRESENT: RRR Pulses: PRESENT: normal radial pulses GI/Abdominal exam: PRESENT: normal bowel sounds, soft. ABSENT: distended, tenderness Extremities exam: PRESENT: other - Left leg wrapped postoperatively with device in place Neurological exam: PRESENT: awake, oriented to person, oriented to place, oriented to situation, CN II-XII grossly intact Psychiatric exam: PRESENT: appropriate affect. ABSENT: anxious Skin exam: PRESENT: dry. ABSENT: rash Results Laboratory Results: 04/29/17 05:17 04/29/17 05:17 04/29/17 04/29/17 05:17 05:17 WBC 10.6 H RBC 3.77 Hgb 11.3 L D Hct 33.2 L MCV 88 MCH 30.1 MCHC 34.2 RDW 14.4 H Plt Count 215 Sodium 138.9 Potassium 3.5 L Chloride 105 Carbon Dioxide 28 Anion Gap 6 BUN 8 Creatinine 0.72 Est GFR ( Amer) > 60 Est GFR (Non-Af Amer) > 60 Glucose 163 H Calcium 8.8 Impressions: Fluoroscopy 04/28/17 00:00 IMPRESSION: Please see combined report for performance of procedure and radiologic supervision and interpretation. Lower Extremity CT 04/28/17 00:00 IMPRESSION: Comminuted fractures of the tibial plateau, tibial shaft and fibular head. Tibia/Fibula X-Ray 04/28/17 04:25 IMPRESSION: 1. Acute, comminuted, displaced, intra-articular fracture at the proximal left tibia with depression of the lateral tibial plateau and lipohemarthrosis at the knee joint. 2. Acute, comminuted, displaced fracture at the proximal fibula. 3. Nondisplaced, transverse fracture at the lateral malleolus with well corticated margins, suggestive of a remote nonunion fracture. Please correlate with clinical history and point tenderness. Chest X-Ray 04/28/17 05:17 IMPRESSION: No acute radiographic finding in the chest. Assessment & Plan - Diagnosis (1) Chronic pain Qualifiers: Chronic pain type: chronic pain syndrome Qualified Code(s): G89.4 - Chronic pain syndrome Is this a current diagnosis for this admission?: Yes Plan: Patient is on a reduced dose of her long-acting morphine. Gabapentin has been added to assist with pain control. She has been somnolent postoperatively. Continue with reduced dose of chronic opiate (2) Compartment syndrome of left lower extremity Qualifiers: Encounter type: initial encounter Qualified Code(s): T79.A22A - Traumatic compartment syndrome of left lower extremity, initial encounter Is this a current diagnosis for this admission?: Yes Plan: Per orthopedic surgery (3) Diabetes Qualifiers: Diabetes mellitus type: type 2 Diabetes mellitus complication status: with unspecified complications Diabetes mellitus [facility] insulin use: without extermination supervisor use Qualified Code(s): E11.8 - Type 2 diabetes mellitus with unspecified complications Is this a current diagnosis for this admission?: Yes Plan: We will continue to monitor CBGs and continue with insulin regimen, diabetic diet, will assess to see if diabetic education as indicated. (4) HTN (hypertension) Qualifiers: Hypertension type: essential hypertension Qualified Code(s): I10 - Essential (primary) hypertension Is this a current diagnosis for this admission?: Yes Plan: Patient's blood pressure has been running high until just recently it has dropped with systolic hovering around 100. She is awake alert and oriented. She is on her home antihypertensives with hydralazine available as needed. We are rechecking blood pressure now. May need to back down on her home doses. (5) Opioid dependence Qualifiers: Substance use status: with unspecified opioid-induced disorder Qualified Code(s): F11.29 - Opioid dependence with unspecified opioid-induced disorder Is this a current diagnosis for this admission?: Yes Plan: She is currently on a reduced dose of her long-acting opiate. Will monitor for reasonable pain control and for safety. (6) Tibial plateau fracture, left Qualifiers: Encounter type: initial encounter Fracture type: closed Qualified Code(s) : S82.142A - Displaced bicondylar fracture of left tibia, initial encounter for closed fracture Is this a current diagnosis for this admission?: Yes Plan: per Orthopedic surgery - Time Time Spent with patient: 25-34 minutes Anticipated discharge: Acute Rehab Within: Other - Not yet clear. Patient will undergo surgery again and then we can try to work on a discharge plan. - Inpatient Certification Based on my medical assessment, after consideration of the patient's comorbidities, presenting symptoms, or acuity I expect that the services needed warrant INPATIENT care.: Yes I certify that my determination is in accordance with my understanding of Medicare's requirements for reasonable and necessary INPATIENT services [42 CFR 412.3e].: Yes Medical Necessity: Need for Surgery
[2017-04-30] MEDS: MORPHINE SULFATE 10 MG/ML INJ IV PRN ×5 (00:50→22:21)
--- NOTE | 2017-04-30 04:13 | CONSULTATION REPORT E ---
Consultation Report NAME: MIKKI CHAVEZ : 1965 AGE: 52Y DATE: 04/29/2017 427 A TO: ERICK LONG FROM: Pricila SINGH, Requesting Physician CHIEF COMPLAINT: Chronic back pain and acute postsurgical pain. HISTORY OF PRESENT ILLNESS: This is a 52-year-old female, who we have been consulted by Dr. Kirkland to see for history of chronic back pain. The patient is status post emergent fasciotomy secondary to compartment syndrome. The patient was seen in the emergency room earlier today on the April 28 secondary to a previous fall. She states that severe left lower extremity pain, swelling, so she came in first thing in the morning to the emergency room, in which she was triaged and then admitted for compartment syndrome. Currently being managed for her postop pain, as well as her chronic back pain. The patient notes increased pain since the procedure and difficulty with sleeping until her recent regimen of medications was adjusted. Chronic lower back pain history with previous lumbar fusion of L4-L5 and L5-S1. Prior to admission, her chronic lower back pain was being managed by [facility] with Dr. Mckeon and Dr. Bunch. She states that she was previously being managed very well with morphine extended-release (MS Contin), a total of 45 mg 3 times a day. Prior to the surgery, her back pain was a constant stabbing, achy, burning type pain of the lower back with left lower extremity radiculopathy that terminated at the left foot. She states that her current pain lying in bed is a 1, but it increases with activity and moving. Notes she is doing much better on the current dosing regimen of medication that includes morphine extended-release 15 mg every 8 hours, morphine immediate-release 30 mg every 8 hours as needed, as well as 2 mg IV morphine every 1 hour as needed for postop and chronic pain. Denies any changes in bowel or bladder control. Denies any constipation or changes in mental status. States that the majority of her pain is at the site of the surgery. Notes some numbness at the knee with a tingling sensation at times. She notes some improvement starting gabapentin less than 24 hours ago. Happy with her regimen overall, denies any other new complications or complaints. PAST MEDICAL HISTORY: Significant for: 1. Hyperlipidemia. 2. Hypertension. 3. Diabetes type 2. 4. Hypothyroidism. 5. Diverticulitis. 6. History of attention deficit hyperactivity disorder. 7. Depression and anxiety. PAST SURGICAL HISTORY: Significant for: 1. . 2. Cholecystectomy. 3. Hysterectomy. 4. Two separate spinal surgeries that resulted in fusion in each case. 5. The patient has undergone tonsillectomy. SOCIAL HISTORY: Denies any smoking, recreational drug use or alcohol consumption. MEDICATIONS: Her home medication list is as follows: 1. Klor-Con 10 mEq tablet twice daily. 2. Bystolic 10 mg 1 tablet daily. 3. Morphine sulfate extended-release 30 mg 1 tablet every 8 hours. 4. Morphine sulfate immediate-release 30 mg 1 tablet every 8 hours. 5. Motrin 800 mg 1 tablet 3 times a day as needed. 6. Lexapro 20 mg 1 tablet daily. 7. Clonidine 0.2 mg 1 tablet daily. 8. Promethazine 25 mg 1 tablet every 6 hours as needed. ALLERGIES: The patient has history of allergy significant for: 1. CYCLOBENZAPRINE. 2. DILAUDID. 3. COMPAZINE. 4. SULFA. 5. TYLENOL NO. 3. REVIEW OF SYSTEMS: CONSTITUTIONAL: Patient denies any fevers, chills, sweating. CARDIOVASCULAR: Denies any chest pain, chest tightness, palpitations. RESPIRATIONS: Denies any shortness of breath, cough, congestion or wheezing. SKIN: Denies any rashes, rashes. NEUROLOGIC: Denies any seizures, headaches, weakness, paralysis. Admits to having left lower extremity pain secondary to recent fasciotomy, as well as paresthesias of the left knee. PSYCHIATRIC: Denies any homicidal/suicidal ideation. The remaining review of systems reported as negative. PHYSICAL EXAMINATION: VITAL SIGNS: Pulse 106, blood pressure 94/67, respirations 16, O2 saturation 94% on room air. GENERAL APPEARANCE: Well-developed, well-nourished female, alert and oriented x3 with mild fatigue in minor pain behavior. HEAD: Normocephalic. EYES: EOMI. PERRLA. NOSE: Patent bilaterally. NECK: Trachea is midline. No goiters, masses, lesions. THROAT: No tonsils, lymphadenopathy, good airway noted. LUNGS: Clear to auscultation bilaterally. HEART: Shows no murmurs, gallops or rubs noted. Regular rate and rhythm. ABDOMEN: Shows positive bowel sounds x4. No guarding. Noted postsurgical scarring. BACK: Unable to assess due to limited range of motion and pain into very recent fasciotomy of the left lower extremity. At this point we declined extensive examination of the lower back. EXTREMITIES: Left lower extremity is bandaged with fixation hardware in place. Noted swelling of the left extremity and limited range of motion. General area shows diffuse tenderness to palpation. Positive pedal pulses noted. PSYCHIATRIC: Patient has some fatigue, very talkative, responsive to conversation and questions. No noted homicidal or suicidal ideation at this time. RADIOLOGIC: Studies reviewed. X-ray of the left lower extremity today consistent with comminuted fracture of the left tibia. ASSESSMENT: 1. CHRONIC BACK PAIN. 2. COMPARTMENT SYNDROME. 3. [id number] PAIN. 4. TIBIAL PLATEAU FRACTURE OF THE LEFT LOWER EXTREMITY. PLAN: Upon review of the current regimen, medications and patient's response, my recommendation will be as follows: 1. We will continue to follow care with Dr. Kirkland for fracture. 2. Current regimen is effective, so we will continue with morphine sulfate immediate-release 30 mg every 8 hours as needed, morphine extended-release 15 mg every 8 hours and morphine 2 mg IV every 1-2 hours as needed for postsurgical pain. We will adjust and extend out the IV at followup visit if patient needs it. As of this point this point, she has only requested the IV morphine twice in the last 24 hours. 3. I reviewed the [place] database and it seems the patient was taking morphine extended-release 30 mg, as well as 15 mg for a total of 45 mg every 8 hours when at home. We may consider return to the regimen as it was stable if needed going forward. We will continue to monitor her pain for now. 4. We will consider increasing Neurontin to 300 mg 4 times a day if no relief, but will hold for now as she has just started the 300 mg daily dosing less than 24 hours. 5. Consideration for Baclofen for muscle spasms. 6. May consider rotation to Percocet if noted pain tolerance with morphine and she has had success with it before. I want to thank you for the opportunity to share in the care of this patient. If you have any other complications, questions or concerns, or need for adjustment please feel free to contact our office. Thank you. DICTATING PHYSICIAN: ERICK LONG [id number] PHY#: [id number] ID: [id number] JOB#: [id number] ACCT: [id number] cc:ERICK CLARKE > ALISON
[2017-04-30] MEDS: MORPHINE SULFATE SR 15 MG TABLET PO SCH ×3 (06:57→22:22)
[2017-04-30] MEDS: MORPHINE SULFATE IR 30 MG TABLET PO SCH ×2 (06:57→13:36)
[2017-04-30] MEDS: GABAPENTIN 300 MG CAPSULE PO SCH ×2 (06:57→13:36)
[2017-04-30] MEDS: NEBIVOLOL HCL 10 MG TABLET PO SCH (09:17)
[2017-04-30] MEDS: POTASSIUM CHLORIDE 10 MEQ TABLET.SA PO SCH ×2 (09:17→17:50)
[2017-04-30] MEDS: ASPIRIN 81 MG TABLET, CHEWABLE PO SCH (09:17)
[2017-04-30] MEDS: CLONIDINE HCL 0.2 MG TABLET PO SCH (09:18)
[2017-04-30] MEDS: ESCITALOPRAM OXALATE 10 MG TABLET PO SCH (09:18)
[2017-04-30 09:38] LABS: HEMATOCRIT 27.3 % (36.0-47.0); HEMOGLOBIN 9.3 g/dL (12.0-15.5); MEAN CORPUSCULAR HEMOGLOBIN 30.3 pg (27.0-33.4); MEAN CORPUSCULAR VOLUME 89 fl (80-97); PLATELET COUNT 175 10^3/uL (150-450); RED BLOOD COUNT 3.06 10^6/uL (3.72-5.28); RED CELL DISTRIBUTION WIDTH 14.5 % (11.5-14.0)
[2017-04-30 10:06] LABS: ANION GAP 5 (5-19); BLOOD UREA NITROGEN 13 mg/dL (7-20); CALCIUM 8.7 mg/dL (8.4-10.2); CARBON DIOXIDE 27 mmol/L (22-30); CHLORIDE 106 mmol/L (98-107); GLUCOSE 103 mg/dL (75-110); SODIUM 137.7 mmol/L (137-145)
[2017-04-30] MEDS: INSULIN LISPRO 100 UNIT/ML 3 ML VIAL SUBCUT PRN (13:36)
[2017-04-30 14:32] LABS: FREE T4 (FREE THYROXINE) 0.52 ng/dL (0.78-2.19)
[2017-04-30 14:46] LABS: THYROID STIMULATING HORMONE 17.3 uIU/mL (0.47-4.68)
--- NOTE | 2017-04-30 18:33 | PDOC PROGRESS REPORT ---
Subjective Progress Note for:: 04/30/17 Subjective:: Feels better, no CP or SOB, still has intermittant left leg post op pain. WE discussed restarting her synthroid. Her BP is better controlled and we discussed that when it is too low it is dangerous to give her opioids which can drop her pressure even lower, she stated understanding. Remainder or ROS completed and negative. Labs and pertinent diagnostic studies have been reviewed by me today. Reason For Visit: COMPARTMENT SYNDROME OF LEFT LOWER EXTREMITY Physical Exam Vital Signs: Temp Pulse Resp BP Pulse Ox 100.0 F 84 16 116/98 H 100 04/30/17 16:07 04/30/17 16:07 04/30/17 16:07 04/30/17 16:07 04/30/17 16:07 Intake & Output 04/29/17 04/30/17 05/01/17 06:59 06:59 06:59 Intake Total 3230 1616 500 Output Total 1930 960 Balance 1300 656 500 Weight 99.2 kg General appearance: PRESENT: no acute distress, cooperative, obese Head exam: PRESENT: atraumatic, normocephalic Eye exam: PRESENT: conjunctiva pink Ear exam: PRESENT: normal external ear exam. ABSENT: bleeding Mouth exam: PRESENT: moist, neck supple Neck exam: ABSENT: lymphadenopathy Respiratory exam: PRESENT: clear to auscultation kim, unlabored Cardiovascular exam: PRESENT: RRR. ABSENT: systolic murmur Pulses: PRESENT: normal carotid pulses GI/Abdominal exam: PRESENT: normal bowel sounds, soft. 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 Neurological exam: PRESENT: alert, awake, oriented to person, oriented to place , oriented to situation Psychiatric exam: ABSENT: agitated, anxious Skin exam: PRESENT: dry, warm Results Laboratory Results: 04/30/17 09:11 04/30/17 09:11 04/30/17 04/30/17 04/30/17 09:11 09:11 09:11 WBC 10.0 RBC 3.06 L Hgb 9.3 L Hct 27.3 L MCV 89 MCH 30.3 MCHC 34.0 RDW 14.5 H Plt Count 175 Sodium 137.7 Potassium 4.0 Chloride 106 Carbon Dioxide 27 Anion Gap 5 BUN 13 Creatinine 0.87 Est GFR ( Amer) > 60 Est GFR (Non-Af Amer) > 60 Glucose 103 Calcium 8.7 TSH 17.30 H Free T4 0.52 L Impressions: Fluoroscopy 04/28/17 00:00 IMPRESSION: Please see combined report for performance of procedure and radiologic supervision and interpretation. Lower Extremity CT 04/28/17 00:00 IMPRESSION: Comminuted fractures of the tibial plateau, tibial shaft and fibular head. Tibia/Fibula X-Ray 04/28/17 04:25 IMPRESSION: 1. Acute, comminuted, displaced, intra-articular fracture at the proximal left tibia with depression of the lateral tibial plateau and lipohemarthrosis at the knee joint. 2. Acute, comminuted, displaced fracture at the proximal fibula. 3. Nondisplaced, transverse fracture at the lateral malleolus with well corticated margins, suggestive of a remote nonunion fracture. Please correlate with clinical history and point tenderness. Chest X-Ray 04/28/17 05:17 IMPRESSION: No acute radiographic finding in the chest. Assessment & Plan - Diagnosis (1) Chronic pain Qualifiers: Chronic pain type: chronic pain syndrome Qualified Code(s): G89.4 - Chronic pain syndrome Is this a current diagnosis for this admission?: Yes Plan: pain service managing her pain meds (2) Compartment syndrome of left lower extremity Qualifiers: Encounter type: initial encounter Qualified Code(s): T79.A22A - Traumatic compartment syndrome of left lower extremity, initial encounter Is this a current diagnosis for this admission?: Yes Plan: per ortho service (3) Diabetes Qualifiers: Diabetes mellitus type: type 2 Diabetes mellitus complication status: with unspecified complications Diabetes mellitus exterminator termite insulin use: without exterminator termite use Qualified Code(s): E11.8 - Type 2 diabetes mellitus with unspecified complications Is this a current diagnosis for this admission?: Yes Plan: CBG reasonable, up and down, normal earlier today, no med changes for now, will readdress after surgery, will cont to follow (4) HTN (hypertension) Qualifiers: Hypertension type: essential hypertension Qualified Code(s): I10 - Essential (primary) hypertension Is this a current diagnosis for this admission?: Yes Plan: I was told today that she uses clonidine at home only prn so that has been stopped. Cont bystolic, BP normalizing. (5) Opioid dependence Qualifiers: Substance use status: with unspecified opioid-induced disorder Qualified Code(s): F11.29 - Opioid dependence with unspecified opioid-induced disorder Is this a current diagnosis for this admission?: Yes Plan: pain service managing (6) Tibial plateau fracture, left Qualifiers: Encounter type: initial encounter Fracture type: closed Qualified Code(s) : S82.142A - Displaced bicondylar fracture of left tibia, initial encounter for closed fracture Is this a current diagnosis for this admission?: Yes Plan: per jeanie (7) Hypothyroidism Is this a current diagnosis for this admission?: Yes Plan: TSH high and free T4 low, will restart her synthroid - Time Time Spent with patient: 25-34 minutes Anticipated discharge: Acute Rehab - Inpatient Certification Based on my medical assessment, after consideration of the patient's comorbidities, presenting symptoms, or acuity I expect that the services needed warrant INPATIENT care.: Yes Medical Necessity: Need for Surgery
[2017-05-01] MEDS: MORPHINE SULFATE IR 30 MG TABLET PO SCH ×5 (00:21→23:37)
[2017-05-01] MEDS: GABAPENTIN 300 MG CAPSULE PO SCH ×5 (00:21→23:37)
[2017-05-01] MEDS ORDERED: NICOTINE 14 MG/24 HR PATCH.TD24 TD ONE (00:30)
[2017-05-01] MEDS: MORPHINE SULFATE 10 MG/ML INJ IV PRN ×10 (00:56→21:52)
[2017-05-01] MEDS: LEVOTHYROXINE SODIUM 0.1 MG TABLET PO SCH (05:45)
[2017-05-01] MEDS: MORPHINE SULFATE SR 15 MG TABLET PO SCH ×3 (05:45→21:00)
--- NOTE | 2017-05-01 07:01 | PDOC PROGRESS REPORT ---
Subjective Progress Note for:: 05/01/17 Subjective:: 52-year-old white female 2 days status post left lower extremity fasciotomy and external fixator placement. Patient lying recumbent in hospital bed with left lower extremity elevated on multiple pillows. Patient reports she is comfortable, yet is now experiencing pain in the left hip. Reason For Visit: COMPARTMENT SYNDROME OF LEFT LOWER EXTREMITY Physical Exam Vital Signs: Temp Pulse Resp BP Pulse Ox 37.7 C 92 15 115/62 98 05/01/17 00:00 05/01/17 00:00 05/01/17 00:00 05/01/17 00:00 05/01/17 00:28 Intake & Output 04/29/17 04/30/17 05/01/17 06:59 06:59 06:59 Intake Total 3230 1616 992 Output Total 1930 960 775 Balance 1300 656 217 Weight 99.2 kg General appearance: PRESENT: no acute distress, well-developed, well-nourished Head exam: PRESENT: atraumatic, normocephalic Additional comments: Sores apparent around oral mucosa. Pulses: PRESENT: normal dorsalis pedis pul, +2 pedal pulses bilateral Vascular exam: PRESENT: normal capillary refill Additional comments: Patient lying recumbent in hospital bed with left lower extremity elevated on multiple pillows. Her OpSite compression dressing is clean dry and intact. This is left in place. Her external fixator is well aligned and in appropriate placement. She has brisk capillary refill to toes on bilateral lower extremities and minimal pedal edema. Her legs are equal and her distal neurovascular exam is intact. Additional comments: Patient has not been seen by physical therapy as of yesterday April 30, 2017. She is also nonambulatory at this point on her left lower extremity due to placement of external fixator and fracture that has not yet been reduced. Neurological exam: PRESENT: alert, awake, oriented to person, oriented to place , oriented to time, oriented to situation, CN II-XII grossly intact. ABSENT: motor sensory deficit Psychiatric exam: PRESENT: appropriate affect, normal mood. ABSENT: homicidal ideation, suicidal ideation Skin exam: PRESENT: dry, intact, warm. ABSENT: cyanosis, rash Results Laboratory Results: 04/30/17 09:11 04/30/17 09:11 04/30/17 04/30/17 04/30/17 09:11 09:11 09:11 WBC 10.0 RBC 3.06 L Hgb 9.3 L Hct 27.3 L MCV 89 MCH 30.3 MCHC 34.0 RDW 14.5 H Plt Count 175 Sodium 137.7 Potassium 4.0 Chloride 106 Carbon Dioxide 27 Anion Gap 5 BUN 13 Creatinine 0.87 Est GFR ( Amer) > 60 Est GFR (Non-Af Amer) > 60 Glucose 103 Calcium 8.7 TSH 17.30 H Free T4 0.52 L Impressions: Fluoroscopy 04/28/17 00:00 IMPRESSION: Please see combined report for performance of procedure and radiologic supervision and interpretation. Lower Extremity CT 04/28/17 00:00 IMPRESSION: Comminuted fractures of the tibial plateau, tibial shaft and fibular head. Tibia/Fibula X-Ray 04/28/17 04:25 IMPRESSION: 1. Acute, comminuted, displaced, intra-articular fracture at the proximal left tibia with depression of the lateral tibial plateau and lipohemarthrosis at the knee joint. 2. Acute, comminuted, displaced fracture at the proximal fibula. 3. Nondisplaced, transverse fracture at the lateral malleolus with well corticated margins, suggestive of a remote nonunion fracture. Please correlate with clinical history and point tenderness. Chest X-Ray 04/28/17 05:17 IMPRESSION: No acute radiographic finding in the chest. Assessment & Plan - Diagnosis (1) Compartment syndrome of left lower extremity Qualifiers: Encounter type: initial encounter Qualified Code(s): T79.A22A - Traumatic compartment syndrome of left lower extremity, initial encounter Is this a current diagnosis for this admission?: Yes Plan: 52-year-old white female 2 days status post fasciotomy of left lower extremity. Patient's postop compression dressing remains clean dry and intact. This will remain in place. Her left lower extremity appears much less edematous with compression dressing and external fixator in place combined with elevation of the left lower extremity. We will continue with this management until she undergoes second procedure to reduce tibial plateau fracture. (2) Tibial plateau fracture, left Qualifiers: Encounter type: initial encounter Fracture type: closed Qualified Code(s) : S82.142A - Displaced bicondylar fracture of left tibia, initial encounter for closed fracture Is this a current diagnosis for this admission?: Yes Plan: Patient has been placed on the OR schedule to undergo open reduction internal fixation of left tibial plateau fracture on Sunday of this week. She will remain n.p.o. after midnight tonight in preparation for preoperative preparation for ORIF tomorrow.
[2017-05-01] MEDS ORDERED: RINGERS SOLUTION,LACTATED 1,000 ML IV PRN (08:33)
[2017-05-01] MEDS ORDERED: CEFAZOLIN 2 GM/D5W RTU 2 GM/50 ML RTUPB IV PRN (08:33)
[2017-05-01] MEDS: ASPIRIN 81 MG TABLET, CHEWABLE PO SCH (10:06)
[2017-05-01] MEDS: POTASSIUM CHLORIDE 10 MEQ TABLET.SA PO SCH ×2 (10:06→17:24)
[2017-05-01] MEDS: NICOTINE 14 MG/24 HR PATCH.TD24 TD SCH (10:07)
[2017-05-01] MEDS: NEBIVOLOL HCL 10 MG TABLET PO SCH (10:07)
[2017-05-01] MEDS: ESCITALOPRAM OXALATE 10 MG TABLET PO SCH (10:08)
[2017-05-01] MEDS: CLONIDINE HCL 0.1 MG TABLET PO SCH (10:08)
[2017-05-01] MEDS ORDERED: VALACYCLOVIR HCL 500 MG TABLET PO ONE (13:00)
--- NOTE | 2017-05-01 16:28 | PROGRESS NOTE E ---
Progress Note NAME: MIKKI CHAVEZ : 1965 AGE: 52Y DATE: 05/01/2017 ROOM: 427 PAIN MANAGEMENT PROGRESS NOTE SUBJECTIVE: Patient has ongoing left leg pain status post emergent fasciotomy due to compartment syndrome. The patient states that she is currently doing very well. Her meds are effective and her pain is currently a 0. She has no side effects. She is happy with her current regimen. She is just a little nervous because she is having more surgery tomorrow. OBJECTIVE: VITAL SIGNS: Stable. GENERAL: The patient is a female who appears stated age and is awake, alert, and oriented to person, place, and time. She does not appear to be in acute distress. She is currently sitting upright and is conversational and pleasant. SKIN: Warm and dry. No rashes. She is not diaphoretic. HEENT: Normocephalic, atraumatic. Extraocular muscles intact. NECK: Supple, nontender. CARDIOVASCULAR: Good pedal pulses bilaterally. LUNGS: Respirations are nonlabored. MUSCULOSKELETAL: She has external fixators in place over her left lower extremities. Bandages are in place as well. There is still the swelling of the left foot but again, good pedal pulses. IMPRESSION AND PLAN: We will continue her current medications. She is currently getting long-acting morphine 15 mg q.8 h. The nurse had called last night saying the patient was increased pain so we had increased her morphine instant release 30 mg from q.8 h. to q.6 h. p.r.n. and she has done well with this transition. She still has morphine IV 2 mg every hour as needed ordered, but she has not used this very much (I think only twice in the past 24 hours, which is good). She is recently postop. Last night, we also added in Baclofen as needed for back spasms when she was having those in the middle of the night, but she has not actually requested this yet, and we also increased her Neurontin, which she has done well with. She states last night that she was just having difficulty sleeping because of stiffness and spasms. I did review with her her chronic pain management. When she is at home, she takes MS-Contin 45 mg 3 times a day daily, so she really has not increased her daily dose much since she has had surgery, which is pretty good. She states in the past though, about a year ago, she was on higher dosages, but they have been gradually tapering her dose down to a more reasonable level so we will continue to monitor this patient. I also discussed with the patient that she is welcome to follow up with our clinic outpatient whenever she is discharged. We can continue to manage her pain or she can continue with her current clinic which is [facility]. DICTATING PHYSICIAN: BILLY BROUSSARD PA-C [id number] PHY#: [id number] ID: [id number] JOB#: [id number] ACCT: [id number] cc: > MTDD
--- NOTE | 2017-05-01 17:16 | PDOC PROGRESS REPORT ---
Subjective Progress Note for:: 05/01/17 Subjective:: Patient's pain is under better control. She and her nurses have worked out a system that seems to be working for her. She slept well last night. No difficulty breathing. She states that sometimes when she feels anxious she has a little bit of chest discomfort which is fleeting. 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 No vision changes or headache. No tingling she does have numbness in the left foot which she has reported to her orthopedic surgery team. No bowel or bladder complaints. Remainder of review of systems is performed and is negative. Her labs and pertinent diagnostics have been reviewed by me. Reason For Visit: COMPARTMENT SYNDROME OF LEFT LOWER EXTREMITY Physical Exam Vital Signs: Temp Pulse Resp BP Pulse Ox 98.8 F 80 20 91/51 L 99 05/01/17 15:44 05/01/17 15:44 05/01/17 15:44 05/01/17 15:44 05/01/17 15:44 Intake & Output 04/30/17 05/01/17 05/02/17 06:59 06:59 06:59 Intake Total 1616 1012 704 Output Total 960 775 Balance 656 237 704 General appearance: PRESENT: no acute distress, obese Head exam: PRESENT: atraumatic, normocephalic Eye exam: PRESENT: conjunctiva pink Ear exam: PRESENT: normal external ear exam. ABSENT: bleeding Neck exam: ABSENT: lymphadenopathy Respiratory exam: PRESENT: clear to auscultation kim. ABSENT: rales, rhonchi, wheezes Cardiovascular exam: PRESENT: RRR. ABSENT: systolic murmur Pulses: PRESENT: normal radial pulses GI/Abdominal exam: PRESENT: normal bowel sounds, soft. ABSENT: distended, tenderness Rectal exam: PRESENT: deferred Extremities exam: PRESENT: pedal edema, other - Foot edema stable Musculoskeletal exam: ABSENT: ambulatory, full ROM Neurological exam: PRESENT: alert, awake, oriented to person, oriented to place , oriented to situation, CN II-XII grossly intact Psychiatric exam: ABSENT: anxious, depressed Skin exam: PRESENT: dry, warm Results Laboratory Results: 04/30/17 09:11 04/30/17 09:11 Impressions: Fluoroscopy 04/28/17 00:00 IMPRESSION: Please see combined report for performance of procedure and radiologic supervision and interpretation. Lower Extremity CT 04/28/17 00:00 IMPRESSION: Comminuted fractures of the tibial plateau, tibial shaft and fibular head. Tibia/Fibula X-Ray 04/28/17 04:25 IMPRESSION: 1. Acute, comminuted, displaced, intra-articular fracture at the proximal left tibia with depression of the lateral tibial plateau and lipohemarthrosis at the knee joint. 2. Acute, comminuted, displaced fracture at the proximal fibula. 3. Nondisplaced, transverse fracture at the lateral malleolus with well corticated margins, suggestive of a remote nonunion fracture. Please correlate with clinical history and point tenderness. Chest X-Ray 04/28/17 05:17 IMPRESSION: No acute radiographic finding in the chest. Assessment & Plan - Diagnosis (1) Chronic pain Qualifiers: Chronic pain type: chronic pain syndrome Qualified Code(s): G89.4 - Chronic pain syndrome Is this a current diagnosis for this admission?: Yes Plan: The pain service has been consulted. No changes to be made today. (2) Compartment syndrome of left lower extremity Qualifiers: Encounter type: initial encounter Qualified Code(s): T79.A22A - Traumatic compartment syndrome of left lower extremity, initial encounter Is this a current diagnosis for this admission?: Yes Plan: Orthopedic surgery managing. She is due to go back to the OR Sunday for reduction of the fracture. (3) Diabetes Qualifiers: Diabetes mellitus type: type 2 Diabetes mellitus complication status: with unspecified complications Diabetes mellitus penitentiary insulin use: without salvage determiner use Qualified Code(s): E11.8 - Type 2 diabetes mellitus with unspecified complications Is this a current diagnosis for this admission?: Yes Plan: Reasonably well controlled. Patient is not eating all of her meals. Blood sugar is fluctuating. We will continue current care and monitor closely postoperatively. (4) HTN (hypertension) Qualifiers: Hypertension type: essential hypertension Qualified Code(s): I10 - Essential (primary) hypertension Is this a current diagnosis for this admission?: Yes Plan: Patient's clonidine has been discontinued and made as needed. She is on her by systolic. Blood pressure is reasonable. She is not symptomatic. (5) Opioid dependence Qualifiers: Substance use status: with unspecified opioid-induced disorder Qualified Code(s): F11.29 - Opioid dependence with unspecified opioid-induced disorder Is this a current diagnosis for this admission?: Yes Plan: Patient is not willing to discuss this now. (6) Tibial plateau fracture, left Qualifiers: Encounter type: initial encounter Fracture type: closed Qualified Code(s) : S82.142A - Displaced bicondylar fracture of left tibia, initial encounter for closed fracture Is this a current diagnosis for this admission?: Yes Plan: To be reduced in the OR with orthopedic surgery Sunday. (7) Hypothyroidism Is this a current diagnosis for this admission?: Yes Plan: Synthroid has been restarted. - Time Time Spent with patient: 25-34 minutes Anticipated discharge: Acute Rehab - Inpatient Certification Based on my medical assessment, after consideration of the patient's comorbidities, presenting symptoms, or acuity I expect that the services needed warrant INPATIENT care.: Yes I certify that my determination is in accordance with my understanding of Medicare's requirements for reasonable and necessary INPATIENT services [42 CFR 412.3e].: Yes Medical Necessity: Need for Surgery
[2017-05-01] MEDS: VALACYCLOVIR HCL 500 MG TABLET PO SCH (22:02)
[2017-05-01] MEDS: INSULIN LISPRO 100 UNIT/ML 3 ML VIAL SUBCUT PRN (22:02)
[2017-05-02] MEDS: ONDANSETRON 4 MG TAB.RAPDIS SL PRN (00:57)
[2017-05-02] MEDS: MORPHINE SULFATE 10 MG/ML INJ IV PRN ×3 (00:57→06:15)
[2017-05-02] MEDS: LEVOTHYROXINE SODIUM 0.1 MG TABLET PO SCH (06:15)
[2017-05-02] MEDS: GABAPENTIN 300 MG CAPSULE PO SCH ×4 (06:15→23:37)
[2017-05-02] MEDS: MORPHINE SULFATE SR 15 MG TABLET PO SCH ×2 (06:24→17:06)
[2017-05-02] MEDS: MORPHINE SULFATE IR 30 MG TABLET PO SCH ×3 (06:24→18:14)
[2017-05-02] MEDS ORDERED: LIDOCAINE 2% INJ-PF (20 MG/ML) 2 ML AMPUL ONE (09:17)
[2017-05-02] MEDS ORDERED: ONDANSETRON HCL INJ/PF 4 MG/2 ML SDV ONE (09:17)
[2017-05-02] MEDS ORDERED: DEXAMETHASONE SOD PHOSPHATE INJ 4 MG/1 ML VIAL ONE (09:17)
[2017-05-02] MEDS ORDERED: SUCCINYLCHOLINE CHLORIDE INJ 200 MG/10 ML VIAL ONE (09:17)
[2017-05-02] MEDS ORDERED: BUPIVACAINE HCL 0.5%-EPI 1:200000 INJ/PF 30 ML VIAL ONE (10:01)
[2017-05-02] MEDS ORDERED: MIDAZOLAM 2 MG/2 ML INJ ONE (10:03)
[2017-05-02] MEDS ORDERED: FENTANYL CITRATE INJ/PF 100 MCG/2 ML AMPUL ONE (10:03)
[2017-05-02] MEDS ORDERED: ACETAMINOPHEN 0 ML IV ONE (10:04)
[2017-05-02] MEDS ORDERED: EPHEDRINE SULFATE INJ 50 MG/1 ML AMPULE ONE (10:04)
[2017-05-02] MEDS ORDERED: PROPOFOL INJ 200 MG/20 ML VIAL IV ONE (10:04)
[2017-05-02] MEDS ORDERED: CEFAZOLIN INJ 1 GM VIAL ONE (10:05)
[2017-05-02] MEDS ORDERED: CLONIDINE HCL 0.2 MG TABLET PO ONE (10:30)
[2017-05-02] MEDS: CLONIDINE HCL 0.1 MG TABLET PO SCH (10:49)
[2017-05-02 11:16] LABS: CREATINE KINASE MB 0.49 ng/mL (<4.55)
[2017-05-02 11:18] LABS: TROPONIN I < 0.012 ng/mL
[2017-05-02] MEDS ORDERED: DEXMEDETOMIDINE INJ 80 MCG/20 ML VIAL IV ONE (13:39)
[2017-05-02] MEDS ORDERED: MORPHINE SULFATE 10 MG/ML INJ ONE ×2 (14:11→16:52)
[2017-05-02] MEDS ORDERED: DIPHENHYDRAMINE HCL 50 MG/ML VIAL IV PRN ×2 (14:14→14:46)
[2017-05-02] MEDS ORDERED: MORPHINE SULFATE 10 MG/ML INJ IV PRN ×2 (14:14→14:46)
--- NOTE | 2017-05-02 14:58 | Operative Report ---
Operative Report DATE OF SURGERY: 05/02/17 PREOPERATIVE DIAGNOSIS: Left tibial plateau fracture status post 4 compartment fasciotomy and asked application of an external fixator POSTOPERATIVE DIAGNOSIS: Same OPERATION: Removal of external fixator. Open reduction internal fixation of left bicondylar tibial plateau fracture SURGEON: RASHAD JARRETT ANESTHESIA: GA ESTIMATED BLOOD LOSS: 100 PROCEDURE: The patient supine on the Surya table left lower extremities prepped and draped in a sterile fashion. The limb was elevated for exsanguination tourniquet inflated 280 torr. Appropriate wrenches and a T-handled drill trocar used to remove the external fixator uneventfully. A hockey-stick type incision is made over the proximal lateral tibial plateau extending distally incorporating the anterolateral fasciotomy incision and extending distal to this to approximately mid lower extremity. Sharp dissection was used to elevate the muscle fascia off the lateral tibial ridge and tibial plateau. A 10 hole left proximal [place] tibial plateau plate is applied to the lateral surface of the tibia and used to reduce the lateral tibial plateau which is depressed. A joker instrument is then used to elevate the articular surface and Hydrocet is mixed and injected to support the articular reduction. Next the plate is applied to the lateral surface of the tibia using lock screws proximally and distally. There is a large anterior tibial cortical fragment attached approximately which is then reduced using an interfrag screw. At this point fluoroscopy was used to look at the reduction of the fracture as well as a as well as the hardware placement both of which are felt to be adequate. The tourniquet is deflated. Hemostasis obtained with electrocautery. The new wound from today is closed primarily with Vicryl and tracee. The secondary from the medial fasciotomy wound is loosely closed. A sterile compressive dressing and posterior plaster splint were applied and the patient's return to the PACU in satisfactory condition.
[2017-05-02] MEDS ORDERED: RINGERS SOLUTION,LACTATED 1,000 ML IV PRN (15:10)
--- NOTE | 2017-05-02 15:39 | RADIOLOGY REPORT (SQ) ---
EXAM DESCRIPTION: NO CHG FLUORO COMPLETE DATE/TIME: 05/02/2017 3:18 pm REASON FOR STUDY: ORIF LEFT TIB/FIB ASST WITH FLUORO IN OR FINDINGS: Please see combined report for performance of procedure and radiologic supervision and int erpretation. IMPRESSION: Please see combined report for performance of procedure and radiologic supervision and i nterpretation.
--- NOTE | 2017-05-02 15:39 | RADIOLOGY REPORT (SQ) ---
EXAM DESCRIPTION: TIBIA FIBULA LEFT COMPLETED DATE/TIME: 05/02/2017 3:18 pm REASON FOR STUDY: ORIF LEFT TIB/FIB ASST WITH FLUORO IN OR COMPARISON: None. FLUOROSCOPY TIME: 1.5 minute 8 images saved to PACS. TECHNIQUE: Intra-operative images acquired during surgical procedure to evaluate progress. NUMBER OF IMAGES: 18 images LIMITATIONS: None. FINDINGS: Fluoroscopic images were obtained during internal fixation of the left tibia. Orthopedic hardware is identified in position. Please refer to the surgeon's operative report for additional in formation. IMPRESSION: IMAGE(S) OBTAINED DURING PROCEDURE. COMMENT: Quality ID [id number]: Final reports for procedures using fluoroscopy that document radiation exp osure indices, or exposure time and number of fluorographic images (if radiation exposure indices are not available) Please consult full operative report of the attending physician for description of the procedure. TECHNICAL DOCUMENTATION: JOB ID: [id number] [employer]- All Rights Reserved
[2017-05-02] MEDS: MORPHINE SULFATE 10 MG/ML INJ ONE ×2 (16:20→16:30)
[2017-05-02] MEDS ORDERED: LORAZEPAM INJ 2 MG/1 ML VIAL ONE (16:52)
[2017-05-02] MEDS: MORPHINE SULFATE SR 30 MG TABLET PO ONE ×2 (16:58→17:06)
[2017-05-02] MEDS ORDERED: MORPHINE SULFATE 10 MG/ML INJ IV ONE (17:00)
[2017-05-02] MEDS: ASPIRIN 81 MG TABLET, CHEWABLE PO SCH (17:06)
[2017-05-02] MEDS: NEBIVOLOL HCL 10 MG TABLET PO SCH (17:06)
[2017-05-02] MEDS: ESCITALOPRAM OXALATE 10 MG TABLET PO SCH (17:06)
[2017-05-02] MEDS: POTASSIUM CHLORIDE 10 MEQ TABLET.SA PO SCH ×2 (17:06→18:14)
[2017-05-02] MEDS: BACLOFEN 10 MG TABLET PO PRN (18:14)
[2017-05-02] MEDS: VALACYCLOVIR HCL 500 MG TABLET PO SCH ×2 (18:15→23:39)
[2017-05-02] MEDS: NICOTINE 14 MG/24 HR PATCH.TD24 TD SCH (18:15)
--- NOTE | 2017-05-02 20:47 | PDOC PROGRESS REPORT ---
Subjective Progress Note for:: 05/02/17 Subjective:: Patient is having pretty severe pain in the left leg after surgery. She is not having any other complaints at this time. Due to her having pain and awaiting pain medication plan she is not willing to answer any other questions. Review of systems cannot be performed. I have reviewed her chart today for any significant changes. Reason For Visit: COMPARTMENT SYNDROME OF LEFT LOWER EXTREMITY Physical Exam Vital Signs: Temp Pulse Resp BP Pulse Ox 99.5 F 88 16 150/89 H 97 05/02/17 20:13 05/02/17 20:13 05/02/17 20:13 05/02/17 20:13 05/02/17 20:13 Intake & Output 05/01/17 05/02/17 05/03/17 06:59 06:59 06:59 Intake Total 1012 1064 1903 Output Total 775 1000 2275 Balance 237 64 -372 General appearance: PRESENT: mild distress. ABSENT: cooperative Mouth exam: PRESENT: moist Respiratory exam: PRESENT: clear to auscultation kim, unlabored Cardiovascular exam: PRESENT: RRR GI/Abdominal exam: PRESENT: normal bowel sounds, soft. ABSENT: distended, tenderness Extremities exam: PRESENT: other - Left leg postop status Neurological exam: PRESENT: awake Psychiatric exam: PRESENT: agitated Skin exam: PRESENT: dry, warm Results Laboratory Results: 04/30/17 09:11 04/30/17 09:11 05/02/17 05/02/17 10:39 10:39 Creatine Kinase 351 H CK-MB (CK-2) 0.49 Troponin I < 0.012 Impressions: Lower Extremity CT 04/28/17 00:00 IMPRESSION: Comminuted fractures of the tibial plateau, tibial shaft and fibular head. Chest X-Ray 04/28/17 05:17 IMPRESSION: No acute radiographic finding in the chest. Fluoroscopy 05/02/17 00:00 IMPRESSION: Please see combined report for performance of procedure and radiologic supervision and interpretation. Tibia/Fibula X-Ray 05/02/17 00:00 IMPRESSION: IMAGE(S) OBTAINED DURING PROCEDURE. Assessment & Plan - Diagnosis (1) Chronic pain Qualifiers: Chronic pain type: chronic pain syndrome Qualified Code(s): G89.4 - Chronic pain syndrome Is this a current diagnosis for this admission?: Yes Plan: she is on her home meds, pain service has been consulted (2) Compartment syndrome of left lower extremity Qualifiers: Encounter type: initial encounter Qualified Code(s): T79.A22A - Traumatic compartment syndrome of left lower extremity, initial encounter Is this a current diagnosis for this admission?: Yes (3) Diabetes Qualifiers: Diabetes mellitus type: type 2 Diabetes mellitus complication status: with unspecified complications Diabetes mellitus half-way insulin use: without marine oil terminal superintendent use Qualified Code(s): E11.8 - Type 2 diabetes mellitus with unspecified complications Is this a current diagnosis for this admission?: Yes Plan: CBG well controlled after surgery , cont current care (4) HTN (hypertension) Qualifiers: Hypertension type: essential hypertension Qualified Code(s): I10 - Essential (primary) hypertension Is this a current diagnosis for this admission?: Yes Plan: a little high due to acute pain, post op, needs pain control and primary service is working on that (5) Opioid dependence Qualifiers: Substance use status: with unspecified opioid-induced disorder Qualified Code(s): F11.29 - Opioid dependence with unspecified opioid-induced disorder Is this a current diagnosis for this admission?: Yes Plan: pain service consulted (6) Tibial plateau fracture, left Qualifiers: Encounter type: initial encounter Fracture type: closed Qualified Code(s) : S82.142A - Displaced bicondylar fracture of left tibia, initial encounter for closed fracture Is this a current diagnosis for this admission?: Yes Plan: went back to the OR today, per ortho (7) Hypothyroidism Is this a current diagnosis for this admission?: Yes Plan: restarted her levothyroxine yesterday, TSH was high - Time Time Spent with patient: 25-34 minutes Anticipated discharge: Acute Rehab - Inpatient Certification Based on my medical assessment, after consideration of the patient's comorbidities, presenting symptoms, or acuity I expect that the services needed warrant INPATIENT care.: Yes I certify that my determination is in accordance with my understanding of Medicare's requirements for reasonable and necessary INPATIENT services [42 CFR 412.3e].: Yes Medical Necessity: Need for Surgery
[2017-05-02] MEDS: MORPHINE SULFATE 60 MG/60 ML RTUINJ IV PRN (21:11)
--- NOTE | 2017-05-02 21:23 | EKG REPORT ---
SEVERITY:- NORMAL ECG - SINUS RHYTHM : Confirmed by: Rosalie Tubbs 02-May-2017 21:22:40
[2017-05-02] MEDS: CEFAZOLIN 2 GM/D5W RTU 2 GM/50 ML RTUPB IV SCH (22:37)
[2017-05-02] MEDS ORDERED: VALACYCLOVIR HCL 500 MG TABLET ONE (22:41)
[2017-05-03] MEDS: LEVOTHYROXINE SODIUM 0.1 MG TABLET PO SCH (06:08)
[2017-05-03] MEDS: CEFAZOLIN 2 GM/D5W RTU 2 GM/50 ML RTUPB IV SCH (06:08)
[2017-05-03] MEDS: GABAPENTIN 300 MG CAPSULE PO SCH ×4 (06:08→23:22)
--- NOTE | 2017-05-03 06:43 | PDOC PROGRESS REPORT ---
Subjective Progress Note for:: 05/03/17 Subjective:: 52-year-old white female one day status post open reduction internal fixation of left tibial plateau fracture. Patient lying recumbent in hospital bed with left lower extremity elevated on multiple pillows in postop compression dressing. Patient reports that she is very pleased with Dr. Kirkland and is questioning whether she can see x-rays pre-and postoperatively. All patient questions were answered and a anatomic drawing was used to explain procedure to patient. Reason For Visit: COMPARTMENT SYNDROME OF LEFT LOWER EXTREMITY Physical Exam Vital Signs: Temp Pulse Resp BP Pulse Ox 37.7 C 95 18 162/101 H 100 05/03/17 03:16 05/03/17 03:16 05/03/17 04:10 05/03/17 03:16 05/03/17 04:10 Intake & Output 05/01/17 05/02/17 05/03/17 06:59 06:59 06:59 Intake Total 1012 1064 2393 Output Total 775 1000 3075 Balance 237 64 -682 General appearance: PRESENT: no acute distress, well-developed, well-nourished Head exam: PRESENT: atraumatic, normocephalic Respiratory exam: PRESENT: unlabored Pulses: PRESENT: normal dorsalis pedis pul, +2 pedal pulses bilateral Vascular exam: PRESENT: normal capillary refill Additional comments: Patient lying recumbent in hospital bed with bilateral lower extremities in full extension. Her left lower extremity is elevated on multiple pillows. Her postop compression dressing is clean dry and intact. This is left in place. She has mild pedal edema. She still has brisk capillary refill to toes on bilateral lower extremities. Her leg lengths are equal and her distal neurovascular exam is intact. Additional comments: Patient has not been seen by physical therapy postoperatively. She will work with physical therapy today and work towards transfer from bed to chair at the bedside. She will maintain a nonweightbearing status on her left lower extremity at this time. Neurological exam: PRESENT: alert, awake, oriented to person, oriented to place , oriented to time, oriented to situation, CN II-XII grossly intact. ABSENT: motor sensory deficit Psychiatric exam: PRESENT: appropriate affect, normal mood. ABSENT: homicidal ideation, suicidal ideation Skin exam: PRESENT: dry, intact, warm. ABSENT: cyanosis, rash Results Laboratory Results: 04/30/17 09:11 04/30/17 09:11 05/02/17 05/02/17 10:39 10:39 Creatine Kinase 351 H CK-MB (CK-2) 0.49 Troponin I < 0.012 Impressions: Lower Extremity CT 04/28/17 00:00 IMPRESSION: Comminuted fractures of the tibial plateau, tibial shaft and fibular head. Chest X-Ray 04/28/17 05:17 IMPRESSION: No acute radiographic finding in the chest. Fluoroscopy 05/02/17 00:00 IMPRESSION: Please see combined report for performance of procedure and radiologic supervision and interpretation. Tibia/Fibula X-Ray 05/02/17 00:00 IMPRESSION: IMAGE(S) OBTAINED DURING PROCEDURE. Assessment & Plan - Diagnosis (1) Compartment syndrome of left lower extremity Qualifiers: Encounter type: initial encounter Qualified Code(s): T79.A22A - Traumatic compartment syndrome of left lower extremity, initial encounter Is this a current diagnosis for this admission?: Yes Plan: Patient will continue regimen including elevation and compression of left lower extremity. (2) Tibial plateau fracture, left Qualifiers: Encounter type: subsequent encounter Fracture type: closed Is this a current diagnosis for this admission?: Yes Plan: 1 day status post open reduction internal fixation and removal of external fixator for left tibial plateau fracture. Patient will maintain a nonweightbearing status on left lower extremity at this time and likely for 6 weeks postoperatively. She will work with physical therapy throughout her stay at the hospital to manage ADLs and transfers from hospital bed to chair at the bedside as well as using bedside commode. Her postoperative pain will continue to be managed by Dr. Kirkland and nursing staff
[2017-05-03 07:20] LABS: ABSOLUTE BASOPHILS # (AUTO) 0.1 10^3/uL (0.0-0.2); ABSOLUTE LYMPHOCYTES (AUTO) 1.5 10^3/uL (0.5-4.7); ABSOLUTE NEUT (AUTO) 7.5 10^3/uL (1.7-8.2); BASOPHILS % (AUTO) 0.5 % (0-2); EOSINOPHILS % (AUTO) 0.3 % (0-6); HEMATOCRIT 24.8 % (36.0-47.0); HEMOGLOBIN 8.4 g/dL (12.0-15.5); LYMPHOCYTES % (AUTO) 14.9 % (13-45); MEAN CORPUSCULAR HEMOGLOBIN 29.6 pg (27.0-33.4); MEAN CORPUSCULAR HGB CONC 33.8 g/dL (32.0-36.0); MEAN CORPUSCULAR VOLUME 88 fl (80-97); MONOCYTES % (AUTO) 10.2 % (3-13); PLATELET COUNT 287 10^3/uL (150-450); RED BLOOD COUNT 2.83 10^6/uL (3.72-5.28); SEGMENTED NEUTROPHILS % (AUTO) 74.1 % (42-78); TOTAL CELLS COUNTED % (AUTO) 100 %; WHITE BLOOD COUNT 10.1 10^3/uL (4.0-10.5)
[2017-05-03 07:47] LABS: ANION GAP 9 (5-19); BLOOD UREA NITROGEN 11 mg/dL (7-20); CALCIUM 8.9 mg/dL (8.4-10.2); CARBON DIOXIDE 29 mmol/L (22-30); CHLORIDE 101 mmol/L (98-107); GLUCOSE 121 mg/dL (75-110); POTASSIUM 4.2 mmol/L (3.6-5.0); SODIUM 139.3 mmol/L (137-145)
[2017-05-03] MEDS: MORPHINE SULFATE 60 MG/60 ML RTUINJ IV PRN ×2 (09:59→22:59)
[2017-05-03] MEDS: CLONIDINE HCL 0.1 MG TABLET PO SCH (10:09)
[2017-05-03] MEDS: NEBIVOLOL HCL 10 MG TABLET PO SCH (10:09)
[2017-05-03] MEDS: POTASSIUM CHLORIDE 10 MEQ TABLET.SA PO SCH ×2 (10:09→17:34)
[2017-05-03] MEDS: ESCITALOPRAM OXALATE 10 MG TABLET PO SCH (10:09)
[2017-05-03] MEDS: NICOTINE 14 MG/24 HR PATCH.TD24 TD SCH (10:09)
[2017-05-03] MEDS: ASPIRIN 81 MG TABLET, CHEWABLE PO SCH (10:09)
[2017-05-03] MEDS: INSULIN LISPRO 100 UNIT/ML 3 ML VIAL SUBCUT PRN (12:15)
[2017-05-03] MEDS: BACLOFEN 10 MG TABLET PO PRN (14:41)
--- NOTE | 2017-05-03 19:17 | PDOC PROGRESS REPORT ---
Subjective Progress Note for:: 05/03/17 Subjective:: 52 year old female who had L orif for left tibial plateau fracture. Medicine is consulting for hypertension and diabetes management. Reason For Visit: COMPARTMENT SYNDROME OF LEFT LOWER EXTREMITY Physical Exam Vital Signs: Temp Pulse Resp BP Pulse Ox 99.5 F 87 16 98/71 L 97 05/03/17 16:00 05/03/17 16:00 05/03/17 16:00 05/03/17 16:00 05/03/17 16:00 Intake & Output 05/02/17 05/03/17 05/04/17 06:59 06:59 06:59 Intake Total 1064 2393 592 Output Total 1000 3075 05850 Balance 32 -631 -96788 General appearance: PRESENT: no acute distress Ear exam: PRESENT: normal external ear exam Neck exam: ABSENT: tenderness, tracheal deviation Cardiovascular exam: PRESENT: RRR GI/Abdominal exam: PRESENT: normal bowel sounds, soft. ABSENT: tenderness Rectal exam: PRESENT: deferred Results Laboratory Results: 05/03/17 06:34 05/03/17 06:34 05/03/17 05/03/17 06:34 06:34 WBC 10.1 RBC 2.83 L Hgb 8.4 L Hct 24.8 L MCV 88 MCH 29.6 MCHC 33.8 RDW 14.0 Plt Count 287 Seg Neutrophils % 74.1 Lymphocytes % 14.9 Monocytes % 10.2 Eosinophils % 0.3 Basophils % 0.5 Absolute Neutrophils 7.5 Absolute Lymphocytes 1.5 Absolute Monocytes 1.0 Absolute Eosinophils 0.0 Absolute Basophils 0.1 Sodium 139.3 Potassium 4.2 Chloride 101 Carbon Dioxide 29 Anion Gap 9 BUN 11 Creatinine 0.67 Est GFR ( Amer) > 60 Est GFR (Non-Af Amer) > 60 Glucose 121 H Calcium 8.9 05/02/17 05/02/17 10:39 10:39 Creatine Kinase 351 H CK-MB (CK-2) 0.49 Troponin I < 0.012 Impressions: Lower Extremity CT 04/28/17 00:00 IMPRESSION: Comminuted fractures of the tibial plateau, tibial shaft and fibular head. Chest X-Ray 04/28/17 05:17 IMPRESSION: No acute radiographic finding in the chest. Fluoroscopy 05/02/17 00:00 IMPRESSION: Please see combined report for performance of procedure and radiologic supervision and interpretation. Tibia/Fibula X-Ray 05/02/17 00:00 IMPRESSION: IMAGE(S) OBTAINED DURING PROCEDURE. Assessment & Plan - Diagnosis (1) HTN (hypertension) Qualifiers: Hypertension type: essential hypertension Qualified Code(s): I10 - Essential (primary) hypertension Is this a current diagnosis for this admission?: Yes Plan: Stable. (2) Chronic pain Qualifiers: Chronic pain type: chronic pain syndrome Qualified Code(s): G89.4 - Chronic pain syndrome Is this a current diagnosis for this admission?: Yes Plan: Beats per pain management. (3) Compartment syndrome of left lower extremity Qualifiers: Encounter type: initial encounter Qualified Code(s): T79.A22A - Traumatic compartment syndrome of left lower extremity, initial encounter Is this a current diagnosis for this admission?: Yes Plan: Regimen per orthopedic service. (4) Hypothyroidism Is this a current diagnosis for this admission?: Yes Plan: On Synthroid. (5) Opioid dependence Qualifiers: Substance use status: with unspecified opioid-induced disorder Qualified Code(s): F11.29 - Opioid dependence with unspecified opioid-induced disorder Is this a current diagnosis for this admission?: Yes (6) Tibial plateau fracture, left Qualifiers: Encounter type: subsequent encounter Fracture type: closed Is this a current diagnosis for this admission?: Yes - Time Time Spent with patient: 25-34 minutes
[2017-05-03] MEDS ORDERED: SENNOSIDES/DOCUSATE 8.6-50 MG 1 EACH TABLET PO ONE (19:45)
[2017-05-03] MEDS: MORPHINE SULFATE SR 30 MG TABLET PO SCH (22:51)
[2017-05-03] MEDS: ONDANSETRON 4 MG TAB.RAPDIS SL PRN (23:22)
[2017-05-04] MEDS ORDERED: NORMAL SALINE 250 ML IV PRN (06:03)
[2017-05-04] MEDS: LEVOTHYROXINE SODIUM 0.1 MG TABLET PO SCH (06:26)
[2017-05-04] MEDS: GABAPENTIN 300 MG CAPSULE PO SCH ×4 (06:26→23:26)
[2017-05-04] MEDS: MORPHINE SULFATE SR 30 MG TABLET PO SCH ×3 (06:26→21:02)
--- NOTE | 2017-05-04 06:30 | PDOC PROGRESS REPORT ---
Subjective Progress Note for:: 05/04/17 Subjective:: 52-year-old white female 2 days status post open reduction internal fixation of left tibial plateau fracture. Patient sitting upright in hospital bed this morning having blood drawn by register of deeds. Patient reports her pain is better controlled in her ankle and proximal thigh however her knee is still painful Reason For Visit: COMPARTMENT SYNDROME OF LEFT LOWER EXTREMITY Physical Exam Vital Signs: Temp Pulse Resp BP Pulse Ox 37.4 C 87 17 151/76 H 99 05/04/17 04:00 05/04/17 04:00 05/04/17 05:00 05/04/17 04:00 05/04/17 04:00 Intake & Output 05/02/17 05/03/17 05/04/17 06:59 06:59 06:59 Intake Total 1064 2393 592 Output Total 1000 9975 81733 Balance 08 -573 -84150 General appearance: PRESENT: no acute distress, well-developed, well-nourished Head exam: PRESENT: atraumatic, normocephalic Additional comments: Ecchymosis present under midline of chin. Likely result of the fall. Respiratory exam: PRESENT: unlabored Pulses: PRESENT: normal dorsalis pedis pul, +2 pedal pulses bilateral Vascular exam: PRESENT: normal capillary refill Additional comments: Patient sitting upright in hospital bed with bilateral lower extremities in full extension with left lower extremity elevated on multiple pillows. Her OpSite compression dressing is clean dry and intact. This is left in place. She has mild pedal edema. She is brisk capillary refill to toes on bilateral lower extremities. Sensory motor functions are intact and distal neurovascular exam is intact. Additional comments: Patient make slow progress physical therapy as she has not yet ambulated or transferred from bed to chair at the bedside. She was informed that in order to be discharged to home as she desires she needs to make progress maintaining the ability to transfer from bed to chair at the bedside and ambulate to and from the restroom independently. She will continue to work with physical therapy to attain these goals. She will maintain a nonweightbearing and/or toe- touch weightbearing status on the left lower extremity. Neurological exam: PRESENT: alert, awake, oriented to person, oriented to place , oriented to time, oriented to situation, CN II-XII grossly intact. ABSENT: motor sensory deficit Psychiatric exam: PRESENT: appropriate affect, normal mood. ABSENT: homicidal ideation, suicidal ideation Skin exam: PRESENT: dry, intact, warm. ABSENT: cyanosis, rash Results Laboratory Results: 05/03/17 06:34 05/03/17 06:34 05/03/17 05/03/17 06:34 06:34 WBC 10.1 RBC 2.83 L Hgb 8.4 L Hct 24.8 L MCV 88 MCH 29.6 MCHC 33.8 RDW 14.0 Plt Count 287 Seg Neutrophils % 74.1 Lymphocytes % 14.9 Monocytes % 10.2 Eosinophils % 0.3 Basophils % 0.5 Absolute Neutrophils 7.5 Absolute Lymphocytes 1.5 Absolute Monocytes 1.0 Absolute Eosinophils 0.0 Absolute Basophils 0.1 Sodium 139.3 Potassium 4.2 Chloride 101 Carbon Dioxide 29 Anion Gap 9 BUN 11 Creatinine 0.67 Est GFR ( Amer) > 60 Est GFR (Non-Af Amer) > 60 Glucose 121 H Calcium 8.9 05/02/17 05/02/17 10:39 10:39 Creatine Kinase 351 H CK-MB (CK-2) 0.49 Troponin I < 0.012 Impressions: Lower Extremity CT 04/28/17 00:00 IMPRESSION: Comminuted fractures of the tibial plateau, tibial shaft and fibular head. Chest X-Ray 04/28/17 05:17 IMPRESSION: No acute radiographic finding in the chest. Fluoroscopy 05/02/17 00:00 IMPRESSION: Please see combined report for performance of procedure and radiologic supervision and interpretation. Tibia/Fibula X-Ray 05/02/17 00:00 IMPRESSION: IMAGE(S) OBTAINED DURING PROCEDURE. Assessment & Plan - Diagnosis (1) Compartment syndrome of left lower extremity Qualifiers: Encounter type: initial encounter Qualified Code(s): T79.A22A - Traumatic compartment syndrome of left lower extremity, initial encounter Is this a current diagnosis for this admission?: Yes Plan: Maintain postoperative compression dressing and elevation to decrease pressures and edema in left lower extremity. (2) Tibial plateau fracture, left Qualifiers: Encounter type: subsequent encounter Fracture type: closed Is this a current diagnosis for this admission?: Yes Plan: 2 days status post open reduction internal fixation for left tibial plateau fracture. As discussed patient needs to make more progress with physical therapy in order to be discharged to home if she desires. If she does not make this progress she will likely be discharged to a retirement facility. She will continue to work with PT to improve strength range of motion of left lower extremity and transfer from bed to chair at the bedside and ambulate to and from the restroom. Patient's compression dressing will be removed tomorrow and we will plan for discharge over the weekend or early next week. (3) Acute blood loss anemia Is this a current diagnosis for this admission?: No Plan: Patient's hematocrit was at a level of 24 this morning. Therefore 2 units of packed red blood cells have been ordered for a transfusion. This will hopefully help resolve the postoperative acute blood loss anemia.
[2017-05-04] MEDS: ONDANSETRON 4 MG TAB.RAPDIS SL PRN ×2 (06:48→21:20)
[2017-05-04 07:37] LABS: HEMATOCRIT 24.1 % (36.0-47.0); HEMOGLOBIN 8.1 g/dL (12.0-15.5); MEAN CORPUSCULAR HEMOGLOBIN 29.7 pg (27.0-33.4); MEAN CORPUSCULAR HGB CONC 33.7 g/dL (32.0-36.0); MEAN CORPUSCULAR VOLUME 88 fl (80-97); PLATELET COUNT 328 10^3/uL (150-450); RED BLOOD COUNT 2.73 10^6/uL (3.72-5.28); WHITE BLOOD COUNT 10.5 10^3/uL (4.0-10.5)
[2017-05-04] MEDS ORDERED: MAGNESIUM CITRATE 296 ML BOTTLE PO PRN (08:40)
[2017-05-04] MEDS ORDERED: ACETAMINOPHEN 325 MG TABLET ONE (08:50)
[2017-05-04] MEDS: POTASSIUM CHLORIDE 10 MEQ TABLET.SA PO SCH ×2 (11:07→18:31)
[2017-05-04] MEDS: ESCITALOPRAM OXALATE 10 MG TABLET PO SCH (11:08)
[2017-05-04] MEDS: CLONIDINE HCL 0.1 MG TABLET PO SCH (11:08)
[2017-05-04] MEDS: NEBIVOLOL HCL 10 MG TABLET PO SCH (11:09)
[2017-05-04] MEDS: ASPIRIN 81 MG TABLET, CHEWABLE PO SCH (11:09)
[2017-05-04] MEDS: NICOTINE 14 MG/24 HR PATCH.TD24 TD SCH (11:09)
[2017-05-04] MEDS ORDERED: DIPHENHYDRAMINE HCL 25 MG CAPSULE PO PRN (14:44)
[2017-05-04] MEDS ORDERED: LACTULOSE SYRUP 20 GM/30 ML UDCUP PO PRN (14:45)
[2017-05-04] MEDS ORDERED: DIPHENHYDRAMINE HCL 25 MG CAPSULE ONE (14:45)
[2017-05-04] MEDS: MORPHINE SULFATE 60 MG/60 ML RTUINJ IV PRN (15:41)
[2017-05-04] MEDS: SENNOSIDES/DOCUSATE 8.6-50 MG 1 EACH TABLET PO SCH (21:02)
[2017-05-05] MEDS: MORPHINE SULFATE SR 30 MG TABLET PO SCH ×3 (05:10→21:35)
[2017-05-05] MEDS: GABAPENTIN 300 MG CAPSULE PO SCH ×4 (05:10→23:46)
[2017-05-05] MEDS: LEVOTHYROXINE SODIUM 0.1 MG TABLET PO SCH (05:10)
[2017-05-05 06:53] LABS: HEMATOCRIT 31.8 % (36.0-47.0); MEAN CORPUSCULAR HEMOGLOBIN 29.8 pg (27.0-33.4); MEAN CORPUSCULAR HGB CONC 33.6 g/dL (32.0-36.0); MEAN CORPUSCULAR VOLUME 89 fl (80-97); PLATELET COUNT 361 10^3/uL (150-450); RED BLOOD COUNT 3.58 10^6/uL (3.72-5.28); RED CELL DISTRIBUTION WIDTH 13.9 % (11.5-14.0); WHITE BLOOD COUNT 10.3 10^3/uL (4.0-10.5)
[2017-05-05 06:57] LABS: HEMOGLOBIN 10.7 g/dL (12.0-15.5)
--- NOTE | 2017-05-05 07:53 | PDOC PROGRESS REPORT ---
Subjective Progress Note for:: 05/05/17 Reason For Visit: COMPARTMENT SYNDROME OF LEFT LOWER EXTREMITY 52-year-old white female who presented with a left bicondylar tibial plateau fracture and associated compartment syndrome. She is status post a decompressive fasciotomy and external fixator application 6 days ago followed by an open reduction internal fixation of the tibial plateau fracture 2 days ago. The patient continues to complain of pain primarily in the region of the knee in the suprapatellar pouch. Physical Exam Vital Signs: Temp Pulse Resp BP Pulse Ox 37.4 C 85 16 138/86 H 95 05/05/17 00:00 05/05/17 00:00 05/05/17 06:00 05/05/17 00:00 05/05/17 06:00 Intake & Output 05/04/17 05/05/17 05/06/17 06:59 06:59 06:59 Intake Total 592 3510 Output Total 82022 1475 Balance -10516 2035 General appearance: PRESENT: mild distress Head exam: PRESENT: normocephalic, other - Ecchymosis on the chin is resolving Respiratory exam: PRESENT: unlabored Cardiovascular exam: PRESENT: RRR Vascular exam: PRESENT: normal capillary refill GI/Abdominal exam: PRESENT: soft Rectal exam: PRESENT: deferred Extremities exam: PRESENT: other - Left lower extremity dressings clean dry and intact. Does not appear to be digging in the skin to explain the patient's discomfort in the super patellar region. Toes demonstrate brisk capillary refill and intact motor and sensory function. Neurological exam: PRESENT: alert, awake, oriented to person, oriented to place , oriented to time, oriented to situation. ABSENT: motor sensory deficit Psychiatric exam: PRESENT: appropriate affect, normal mood. ABSENT: homicidal ideation, suicidal ideation Skin exam: PRESENT: dry, intact, warm. ABSENT: cyanosis, rash Results Laboratory Results: 05/05/17 06:00 05/03/17 06:34 05/04/17 05/05/17 06:25 06:00 WBC 10.3 RBC 3.58 L Hgb 10.7 L D Hct 31.8 L MCV 89 MCH 29.8 MCHC 33.6 RDW 13.9 Plt Count 361 Blood Type B POSITIVE Antibody Screen NEGATIVE 05/02/17 05/02/17 10:39 10:39 Creatine Kinase 351 H CK-MB (CK-2) 0.49 Troponin I < 0.012 Impressions: Lower Extremity CT 04/28/17 00:00 IMPRESSION: Comminuted fractures of the tibial plateau, tibial shaft and fibular head. Chest X-Ray 04/28/17 05:17 IMPRESSION: No acute radiographic finding in the chest. Fluoroscopy 05/02/17 00:00 IMPRESSION: Please see combined report for performance of procedure and radiologic supervision and interpretation. Tibia/Fibula X-Ray 05/02/17 00:00 IMPRESSION: IMAGE(S) OBTAINED DURING PROCEDURE. Status: Imported from PACS Assessment & Plan - Diagnosis (1) Tibial plateau fracture, left Qualifiers: Encounter type: subsequent encounter Fracture type: closed Is this a current diagnosis for this admission?: Yes Plan: Status post open reduction internal fixation. Now with a touchdown weightbearing restriction on the left lower extremity. (2) Compartment syndrome of left lower extremity Qualifiers: Encounter type: initial encounter Qualified Code(s): T79.A22A - Traumatic compartment syndrome of left lower extremity, initial encounter Is this a current diagnosis for this admission?: Yes Plan: Resolved (3) HTN (hypertension) Qualifiers: Hypertension type: essential hypertension Qualified Code(s): I10 - Essential (primary) hypertension Is this a current diagnosis for this admission?: Yes (4) Opioid dependence Qualifiers: Substance use status: with unspecified opioid-induced disorder Qualified Code(s): F11.29 - Opioid dependence with unspecified opioid-induced disorder Is this a current diagnosis for this admission?: Yes (5) Diabetes Qualifiers: Diabetes mellitus type: type 2 Diabetes mellitus complication status: with unspecified complications Diabetes mellitus psychologist developmental insulin use: without fpc use Qualified Code(s): E11.8 - Type 2 diabetes mellitus with unspecified complications Is this a current diagnosis for this admission?: Yes Plan: Blood glucose is controlled between 103 and 138 (6) Constipation Is this a current diagnosis for this admission?: Yes Plan: Mag citrate was not effective yesterday and initiating a bowel movement. Dulcolax will be attempted today. - Time Time Spent with patient: 15-24 minutes Anticipated discharge: Home with Homehealth Within: within 24 hours
[2017-05-05] MEDS ORDERED: BISACODYL 10 MG SUPP.RECT PR ONE ×2 (08:00→20:15)
[2017-05-05] MEDS: OXYCODONE HCL IR 5 MG TABLET PO PRN ×4 (09:14→21:40)
[2017-05-05] MEDS: ACETAMINOPHEN 325 MG TABLET PO PRN ×2 (09:16→16:57)
[2017-05-05] MEDS: NICOTINE 14 MG/24 HR PATCH.TD24 TD SCH (09:17)
[2017-05-05] MEDS: NEBIVOLOL HCL 10 MG TABLET PO SCH (09:18)
[2017-05-05] MEDS: POTASSIUM CHLORIDE 10 MEQ TABLET.SA PO SCH ×2 (09:18→17:07)
[2017-05-05] MEDS: ASPIRIN 81 MG TABLET, CHEWABLE PO SCH (09:18)
[2017-05-05] MEDS: ESCITALOPRAM OXALATE 10 MG TABLET PO SCH (09:18)
[2017-05-05] MEDS: CLONIDINE HCL 0.1 MG TABLET PO SCH (13:44)
--- NOTE | 2017-05-05 13:49 | PROGRESS NOTE E ---
Progress Note NAME: MIKKI CHAVEZ : 1965 AGE: 52Y DATE: 05/03/2017 ROOM: 427 SUBJECTIVE: Ongoing left leg pain status post urgent fasciotomy due to compartment syndrome and also now status post open reduction and internal fixation of a left tibial plateau fracture. She is postop day 1 from her open reduction and internal fixation. LOG FEEDER was started last night due to uncontrollable postop pain and the LOG FEEDER has been very effective thus far. She states currently she is doing very well. The LOG FEEDER is very effective and she has no pain when she uses it and she is very happy with it. OBJECTIVE: VITAL SIGNS: Stable. GENERAL: The patient is a female who appears stated age and is awake, alert and oriented to person, place and time. She does not appear to be in acute distress. She is sitting upright and is conversational and pleasant. SKIN: Warm and dry. No rashes. HEENT: Normocephalic, atraumatic. Extraocular muscles are intact. NECK: Supple, nontender. CARDIOVASCULAR SYSTEM: Radial pulses are 2+ bilaterally. LUNGS: Respirations are nonlabored. MUSCULOSKELETAL: She has a bandage in place over her left lower extremity. EXTREMITIES: She is able to move her feet and wiggle her toes. ASSESSMENT: She is postoperative day 1 from open reduction and internal fixation of a left tibial plateau fracture. The patient-controlled anesthesia was started last night due to uncontrollable postoperative pain and the patient-controlled anesthesia has been very effective. PLAN: We will continue the LOG FEEDER for now, but we will decrease her dose from 1.3 mg every 2 minutes to 1 mg of morphine every 12 minutes, lock out at 5 mg an hour. We will restart her MS-Contin 30 mg q.8 hours to get some long-acting on board. Our plan will be to discontinue the LOG FEEDER pump probably tomorrow. We will continue to follow this patient. DICTATING PHYSICIAN: BILLY BROUSSARD PA-C [id number] PHY#: [id number] ID: [id number] JOB#: [id number] ACCT: [id number] cc: >
--- NOTE | 2017-05-05 13:54 | PROGRESS NOTE E ---
Progress Note NAME: MIKKI CHAVEZ : 1965 AGE: 52Y DATE: 05/04/2017 ROOM: 427 SUBJECTIVE: Ongoing left leg pain status post fasciotomy due to compartment syndrome and open reduction and internal fixation of left tibial plateau fracture. She is postop day 2. She states she is hesitant to discontinue the HEAD OF QUALITY pump since it so effective. She has been able to use it less since starting MS Contin, so that is helping and she states she has been able to rest and nap throughout the day. She states most of her pain is at night and she has difficulty sleeping, so she would really like to continue the HEAD OF QUALITY overnight. OBJECTIVE: VITAL SIGNS: Stable. GENERAL: She is a healthy well appearing female who appears stated age and awake, alert, and oriented to person, place, and time. She does not appear to be in acute distress. She is sitting upright in bed. Able to converse. SKIN: Warm and dry. HEENT: Normocephalic, atraumatic. Extraocular muscles are intact. CARDIOVASCULAR: Radial pulses are 2+ bilaterally. LUNGS: Respirations are nonlabored. MUSCULOSKELETAL: She still has the bandage in place over her left lower extremity and she is able to wiggle her toes. IMPRESSION AND PLAN: SHE IS POSTOP DAY 2. We will continue the HEAD OF QUALITY overnight tonight as the patient states the majority of her pain is at night, but we will discontinue the HEAD OF QUALITY altogether starting tomorrow at 0600. At that point, we will start oxycodone instant release 10 mg p.o. q.4 hours as needed. She can be discharged home with both MS Contin and oxycodone. DICTATING PHYSICIAN: BILLY BROUSSARD PA-C [id number] PHY#: [id number] ID: [id number] JOB#: [id number] ACCT: [id number] cc: >
--- NOTE | 2017-05-05 15:53 | PROGRESS NOTE E ---
Progress Note NAME: MIKKI CHAVEZ : 1965 AGE: 52Y DATE: 05/04/2017 ROOM: 427 SUBJECTIVE: The patient is lying in bed. The patient states that she is having ongoing pain but this is being followed by pain management. The patient denies any nausea, vomiting, diarrhea. No shortness of breath, dizziness, chest pain. The patient has had a low grade temperature. The patient has been afebrile, blood pressure has been in a good range. The patient does not voice any other concerns at this time. REVIEW OF SYSTEMS: The rest of the review of systems is negative. MEDICATIONS: Have been reviewed. OBJECTIVE: GENERAL: The patient is a 52-year-old female who is awake, alert, and oriented to person, time, place, situation. She is verbal, conversational. Does not appear to be in any acute distress. VITAL SIGNS: Temperature is 98.9, pulse 83, respirations 18, blood pressure is 135/53, oxygen saturation is 96% on room air. SKIN: Warm and dry. No rash. She is not diaphoretic. HEENT: Pupils, equal, round and reactive to light and accommodation. Conjunctivae are pink. No evidence of JVP. CARDIOVASCULAR: Heart is regular. There is no murmur or rub. CHEST: Clear, symmetrical, unlabored. ABDOMEN: Soft, nontender, nondistended. BACK: No CVA tenderness, sacral edema. EXTREMITIES: The patient's left lower extremity is wrapped in Coban. PSYCHIATRIC: Appropriate affect, pleasant mood. LABORATORY DATA: Hematology obtained on 05/03/2017; WBC 10.3, hemoglobin 10.7, hematocrit 31.8, platelet count is 361,000. Chemistry obtained on 05/03/2017; sodium is 139, potassium 4.2, chloride is 101, carbon dioxide 29, BUN 11, creatinine is 0.67, glucose 121, calcium is 8.9. IMPRESSION AND PLAN: 1. HYPERTENSION. The patient's blood pressures have been in reasonable range. Will continue current medications. 2. DIABETES MELLITUS TYPE 2. This is diet controlled. The patient has had excellent glycemic control. If this does persist will discontinue coverage and follow. 3. COMPARTMENT SYNDROME. Management as per primary team. 4. ACUTE BLOOD LOSS ANEMIA SECONDARY TO THE ABOVE. Again management as per primary team. CODE STATUS: The patient is a full code. DISPOSITION: Depending on the patient's symptomatology and diagnostic findings will reevaluate in the a.m. TIME SPENT: On this follow up, including assessment and plan, physical examination, patient education, and review of records is 25 minutes. DICTATING PHYSICIAN: PAULINE PHIPPS NP [id number] PHY#: [id number] ID: [id number] JOB#: [id number] ACCT: [id number] cc: >
--- NOTE | 2017-05-05 19:09 | PROGRESS NOTE E ---
Progress Note NAME: MIKKI CHAVEZ : 1965 AGE: 52Y DATE: 05/05/2017 ROOM: 427 SUBJECTIVE: The patient is currently lying in bed. She states she feels a little better than she did. Still complains of pain. This is being managed by Pain Management. Patient denies any nausea, vomiting, diarrhea. No shortness of breath, dizziness, chest pain. No fever or chills. The patient has been afebrile. Blood pressure has been in good range. Appetite has been good and the patient has not voiced any other concerns at this time. REVIEW OF SYSTEMS: The rest of the review of systems is negative. MEDICATIONS: Reviewed. OBJECTIVE: GENERAL: Patient is a 52-year-old female, who is awake, alert and oriented to person, place, time and situation. She is verbal, conversational. Does not appear to be in any acute distress. VITAL SIGNS: Temperature is 98.9, pulse 73, respirations 18, blood pressure 135/83, oxygen saturation 96% on room air. SKIN: Warm and dry. No rash. She is not diaphoretic. HEENT: Pupils equal, round and reactive to light and accommodation. Conjunctivae is pink. NECK: No evidence of JVP. CARDIOVASCULAR: Regular. There is no murmur or rub. CHEST: Clear, symmetrical, unlabored. ABDOMEN: Soft, nontender, nondistended. BACK: No CVA tenderness or sacral edema. EXTREMITIES: No clubbing, cyanosis or edema. The patient's left lower extremity is wrapped in Coban. DIAGNOSTICS: Lab values are as follows: Hematology obtained on 05/05/2017: WBCs are 10.3, hemoglobin is 10.7, hematocrit is 31.8, platelet count is 361,000. Coagulation obtained on 04/28/2017: PT is 12.2, INR is 0.85. Chemistry obtained on 05/05/2017: Glucose is 104, 108. IMPRESSION AND PLAN: 1. HYPERTENSION. The patient's blood pressure has been in acceptable range. Continue current medication. 2. DIABETES MELLITUS TYPE 2. This is diet-controlled. The patient has excellent glycemic control. Will obtain an A1c. If this is respectable, will discontinue Accu-Cheks and follow. 3. COMPARTMENT SYNDROME. Management is per primary team. 4. ACUTE BLOOD LOSS ANEMIA. This is secondary to the above. Again, as per primary team. 5. OPIATE DEPENDENCY, CONTINUOUS. Management is per Pain Management. DISPOSITION: The patient is a FULL CODE. Pending patient's symptomatology and diagnostic findings, will reevaluate in the a.m. Time spent on this followup, including assessment, plan, physical examination, patient education, review of records is 15 minutes. DICTATING PHYSICIAN: PAULINE PHIPPS NP [id number] PHY#: [id number] ID: [id number] JOB#: [id number] ACCT: [id number] cc: >
[2017-05-05] MEDS: SENNOSIDES/DOCUSATE 8.6-50 MG 1 EACH TABLET PO SCH (21:35)
[2017-05-05] MEDS ORDERED: KETOROLAC TROMETHAMINE INJ/PF 30 MG/1 ML SDV IV ONE (23:52)
[2017-05-06] MEDS: BACLOFEN 10 MG TABLET PO PRN ×2 (00:23→22:26)
[2017-05-06] MEDS: MORPHINE SULFATE SR 30 MG TABLET PO SCH ×3 (05:54→22:16)
[2017-05-06] MEDS: GABAPENTIN 300 MG CAPSULE PO SCH ×3 (05:55→18:02)
[2017-05-06] MEDS: LEVOTHYROXINE SODIUM 0.1 MG TABLET PO SCH (05:55)
[2017-05-06] MEDS: OXYCODONE HCL IR 5 MG TABLET PO PRN ×5 (05:56→22:26)
[2017-05-06] MEDS: ACETAMINOPHEN 325 MG TABLET PO PRN ×3 (06:29→18:03)
[2017-05-06 07:22] LABS: ABSOLUTE BASOPHILS # (AUTO) 0.2 10^3/uL (0.0-0.2); ABSOLUTE EOSINOPHILS # (AUTO) 0.5 10^3/uL (0.0-0.6); ABSOLUTE LYMPHOCYTES (AUTO) 3.1 10^3/uL (0.5-4.7); ABSOLUTE MONOCYTES (AUTO) 0.8 10^3/uL (0.1-1.4); BASOPHILS % (AUTO) 2.2 % (0-2); EOSINOPHILS % (AUTO) 5.4 % (0-6); HEMATOCRIT 31.7 % (36.0-47.0); HEMOGLOBIN 10.6 g/dL (12.0-15.5); MEAN CORPUSCULAR HEMOGLOBIN 29.5 pg (27.0-33.4); MEAN CORPUSCULAR HGB CONC 33.5 g/dL (32.0-36.0); MEAN CORPUSCULAR VOLUME 88 fl (80-97); MONOCYTES % (AUTO) 8.7 % (3-13); PLATELET COUNT 437 10^3/uL (150-450); RED CELL DISTRIBUTION WIDTH 13.9 % (11.5-14.0); SEGMENTED NEUTROPHILS % (AUTO) 51.7 % (42-78); TOTAL CELLS COUNTED % (AUTO) 100 %; WHITE BLOOD COUNT 9.7 10^3/uL (4.0-10.5)
[2017-05-06 07:34] LABS: ANION GAP 6 (5-19); BLOOD UREA NITROGEN 14 mg/dL (7-20); CALCIUM 8.9 mg/dL (8.4-10.2); CARBON DIOXIDE 28 mmol/L (22-30); CHLORIDE 106 mmol/L (98-107); GLUCOSE 95 mg/dL (75-110); MAGNESIUM 2.2 mg/dL (1.6-2.3); POTASSIUM 4.4 mmol/L (3.6-5.0); SODIUM 140.4 mmol/L (137-145)
--- NOTE | 2017-05-06 08:48 | PDOC PROGRESS REPORT ---
Subjective Progress Note for:: 05/06/17 Reason For Visit: COMPARTMENT SYNDROME OF LEFT LOWER EXTREMITY 52-year-old white female postop day 4 from an open reduction internal fixation of a left bicondylar tibial plateau fracture Physical Exam Vital Signs: Temp Pulse Resp BP Pulse Ox 37.2 C 64 16 130/79 H 94 05/06/17 07:27 05/06/17 07:27 05/06/17 07:27 05/06/17 07:27 05/06/17 07:27 Intake & Output 05/05/17 05/06/17 05/07/17 06:59 06:59 06:59 Intake Total 3510 1700 Output Total 1475 2425 Balance 2035 -725 Physical Exam: Patient complains of pain about the knee and in the suprapatellar region General appearance: PRESENT: no acute distress Head exam: PRESENT: normocephalic Respiratory exam: PRESENT: unlabored Cardiovascular exam: PRESENT: RRR Pulses: PRESENT: +1 pedal pulses bilateral Vascular exam: PRESENT: normal capillary refill GI/Abdominal exam: PRESENT: soft Rectal exam: PRESENT: deferred Extremities exam: PRESENT: other - Left lower extremity dressings clean dry and intact. There is some swelling about the toes but motor, sensory, and vascular examination without focal defect. Psychiatric exam: PRESENT: appropriate affect, normal mood. ABSENT: homicidal ideation, suicidal ideation Skin exam: PRESENT: dry, intact, warm. ABSENT: cyanosis, rash Results Laboratory Results: 05/06/17 07:06 05/06/17 07:06 05/06/17 05/06/17 07:06 07:06 WBC 9.7 RBC 3.60 L Hgb 10.6 L Hct 31.7 L MCV 88 MCH 29.5 MCHC 33.5 RDW 13.9 Plt Count 437 Seg Neutrophils % 51.7 Lymphocytes % 32.0 Monocytes % 8.7 Eosinophils % 5.4 Basophils % 2.2 H Absolute Neutrophils 5.0 Absolute Lymphocytes 3.1 Absolute Monocytes 0.8 Absolute Eosinophils 0.5 Absolute Basophils 0.2 Sodium 140.4 Potassium 4.4 Chloride 106 Carbon Dioxide 28 Anion Gap 6 BUN 14 Creatinine 0.62 Est GFR ( Amer) > 60 Est GFR (Non-Af Amer) > 60 Glucose 95 Calcium 8.9 Magnesium 2.2 05/02/17 05/02/17 10:39 10:39 Creatine Kinase 351 H CK-MB (CK-2) 0.49 Troponin I < 0.012 Impressions: Lower Extremity CT 04/28/17 00:00 IMPRESSION: Comminuted fractures of the tibial plateau, tibial shaft and fibular head. Chest X-Ray 04/28/17 05:17 IMPRESSION: No acute radiographic finding in the chest. Fluoroscopy 05/02/17 00:00 IMPRESSION: Please see combined report for performance of procedure and radiologic supervision and interpretation. Tibia/Fibula X-Ray 05/02/17 00:00 IMPRESSION: IMAGE(S) OBTAINED DURING PROCEDURE. Status: Imported from PACS Assessment & Plan - Diagnosis (1) Tibial plateau fracture, left Qualifiers: Encounter type: subsequent encounter Fracture type: closed Is this a current diagnosis for this admission?: Yes Plan: Patient with limited progress with physical therapy. Anticipate discharge home tomorrow with home health nursing, home health physical therapy, wheeled walker , bedside commode. (2) Compartment syndrome of left lower extremity Qualifiers: Encounter type: initial encounter Qualified Code(s): T79.A22A - Traumatic compartment syndrome of left lower extremity, initial encounter Is this a current diagnosis for this admission?: Yes (3) HTN (hypertension) Qualifiers: Hypertension type: essential hypertension Qualified Code(s): I10 - Essential (primary) hypertension Is this a current diagnosis for this admission?: Yes (4) Opioid dependence Qualifiers: Substance use status: with unspecified opioid-induced disorder Qualified Code(s): F11.29 - Opioid dependence with unspecified opioid-induced disorder Is this a current diagnosis for this admission?: Yes (5) Diabetes Qualifiers: Diabetes mellitus type: type 2 Diabetes mellitus complication status: with unspecified complications Diabetes mellitus terminal clerk insulin use: without senior care use Qualified Code(s): E11.8 - Type 2 diabetes mellitus with unspecified complications Is this a current diagnosis for this admission?: Yes (6) Constipation Is this a current diagnosis for this admission?: Yes - Time Time Spent with patient: 15-24 minutes Anticipated discharge: Home with Homehealth Within: within 24 hours
--- NOTE | 2017-05-06 09:33 | PROGRESS NOTE E ---
Progress Note NAME: MIKKI CHAVEZ : 1965 AGE: 52Y DATE: 05/06/2017 ROOM: 427 SUBJECTIVE: The patient is currently lying in bed. The patient's fever is overall improved. The patient has had no reported episodes of vomiting nor diarrhea. The patient no concerned voiced at this time. REVIEW OF SYSTEMS: The rest of the review of systems is negative. MEDICATIONS: Have been reviewed. OBJECTIVE: GENERAL: The patient is a 52-year-old female who is awake, alert, and oriented to person, place, time, situation. She is verbal, conversational. Does not appear to be in any acute distress. VITAL SIGNS: Temperature is 98.9, pulse 76, respirations 16, blood pressure is 130/79, oxygen saturation is 94% on room air. SKIN: Warm and dry. No rash. She is not diaphoretic. HEENT: Pupils, equal, round and reactive to light and accommodation. Conjunctivae are pink. No evidence of JVP. CARDIOVASCULAR: Heart is regular. There is no murmur or rub. CHEST: Clear, symmetrical, unlabored. ABDOMEN: Soft, nontender, nondistended. BACK: No CVA tenderness, sacral edema. EXTREMITIES: The left lower extremity is wrapped in Coban. DIAGNOSTICS: Hematology obtained on 04/26/2017; WBC 9.7, hemoglobin 10.6, hematocrit 31.7, platelet count is 433,000. Chemistry obtained on 05/06/2017; sodium is 140, potassium 2.4, chloride is 106, carbon dioxide 28, BUN 14, creatinine is 0.62, glucose 95. A1C is 5.6. Calcium is 8.9, magnesium is 2.2. IMPRESSION AND PLAN: 1. HYPERTENSION. The patient's blood pressures have been in acceptable range. Continue current medications. 2. DIABETES MELLITUS TYPE 2. This is diet controlled. The patient has excellent A1c at 5.6. Have discontinued Accu Cheks. The patient to follow up her primary. 3. COMPARTMENT SYNDROME. Management as per primary team. 4. ACUTE BLOOD LOSS ANEMIA SECONDARY TO THE ABOVE. Management as per primary team. 5. OPIATE DEPENDENCY. Continue with management as appropriate. DISPOSITION: The patient is a full code. The patient is cleared for discharge from a medical perspective. At this time, the hospitalist will sign off from this case. If the patient's condition should change or new symptoms arise, please feel free to reconsult and as always the hospitalist would like to thank the orthopedist for allowing us to participate in the care of this patient. TIME SPENT: Time spent on this followup including assessment, plan, physical examination, review of records is 15 minutes. DICTATING PHYSICIAN: PAULINE PHIPPS NP [id number] PHY#: [id number] ID: [id number] JOB#: [id number] ACCT: [id number] cc: > MTDD
[2017-05-06] MEDS: NEBIVOLOL HCL 10 MG TABLET PO SCH (10:08)
[2017-05-06] MEDS: POTASSIUM CHLORIDE 10 MEQ TABLET.SA PO SCH ×2 (10:08→18:02)
[2017-05-06] MEDS: ESCITALOPRAM OXALATE 10 MG TABLET PO SCH (10:09)
[2017-05-06] MEDS: ASPIRIN 81 MG TABLET, CHEWABLE PO SCH (10:09)
[2017-05-06] MEDS: NICOTINE 14 MG/24 HR PATCH.TD24 TD SCH (10:09)
[2017-05-06] MEDS: CLONIDINE HCL 0.1 MG TABLET PO SCH (10:10)
[2017-05-06] MEDS: ONDANSETRON 4 MG TAB.RAPDIS SL PRN (18:02)
[2017-05-06] MEDS: SENNOSIDES/DOCUSATE 8.6-50 MG 1 EACH TABLET PO SCH (22:16)
[2017-05-07] MEDS ORDERED: KETOROLAC TROMETHAMINE INJ/PF 30 MG/1 ML SDV IV ONE (00:15)
[2017-05-07] MEDS: GABAPENTIN 300 MG CAPSULE PO SCH ×3 (00:27→11:20)
[2017-05-07] MEDS: ACETAMINOPHEN 325 MG TABLET PO PRN (03:47)
[2017-05-07] MEDS: OXYCODONE HCL IR 5 MG TABLET PO PRN ×2 (03:47→09:23)
[2017-05-07] MEDS: LEVOTHYROXINE SODIUM 0.1 MG TABLET PO SCH (06:10)
[2017-05-07] MEDS: MORPHINE SULFATE SR 30 MG TABLET PO SCH (06:10)
--- NOTE | 2017-05-07 06:49 | PDOC DISCHARGE SUMMARY ---
General - Admit/Disc Date/PCP Admission Date/Primary Care Provider: 04/28/17 06:36 MATILDE WOO MD Discharge Date: 05/07/17 - Discharge Diagnosis (1) Tibial plateau fracture, left Is this a current diagnosis for this admission?: Yes (2) Compartment syndrome of left lower extremity Is this a current diagnosis for this admission?: Yes (3) HTN (hypertension) Is this a current diagnosis for this admission?: Yes (4) Opioid dependence Is this a current diagnosis for this admission?: Yes (5) Diabetes Is this a current diagnosis for this admission?: Yes (6) Constipation Is this a current diagnosis for this admission?: Yes - Additional Information Resuscitation Status: Full Code Discharge Diet: As Tolerated, Regular Discharge Activity: Balance Activity w/Rest, No Driving, No tub bath Home Medications: Clonidine HCl [Catapres 0.2 mg Tablet] 0.2 mg PO DAILY 04/28/17 Escitalopram Oxalate [Lexapro] 20 mg PO DAILY 04/28/17 Ibuprofen [Motrin 800 mg Tablet] 800 mg PO TID 04/28/17 Morphine Sulfate [Morphine Ir 30 mg Tablet] 30 mg PO Q8 04/28/17 Morphine Sulfate [Morphine Sulfate ER] 15 mg PO Q8 04/28/17 Nebivolol HCl [Bystolic 10 mg Tablet] 10 mg PO DAILY 04/28/17 Potassium Chloride [Klor-Con 10 Meq Tablet.sa] 10 meq PO BID 04/28/17 Promethazine HCl [Phenergan 25 mg Tablet] 25 mg PO Q6HP PRN 04/28/17 Aspirin [Aspirin 81 mg Chewable Tablet] 81 mg PO DAILY tab.chew 05/07/17 Levothyroxine Sodium [Synthroid 0.1 mg Tablet] 0.1 mg PO Q6AM tablet 05/07/17 Morphine Sulfate [Ms-Contin Sr 30 mg Tablet] 30 mg PO Q8 tablet.sa 05/07/17 Nicotine [Nicoderm 14 mg/24 Hr Transdermal Patch] 1 each TD DAILY patch.td24 Oxycodone HCl [Oxy-Ir 5 mg Tablet] 10 mg PO Q4HP PRN tablet 05/07/17 History of Present Illness History of Present Illness: Patient is a 52-year-old white female who fell off a counter and sustained a left lower extremity injury. She was brought to the emergency room where a bicondylar left tibial plateau fracture was identified and concern was raised by an underlying compartment syndrome. Hospital Course Hospital Course: The patient was taken emergently to the operating room and underwent a 4 compartment fasciotomy left lower extremity and application of external fixator. Following several days of elevation the patient was taken back to the operating room for removal of the external fixator, closure of the fasciotomy wounds and a subsequent open reduction internal fixation of a left bicondylar tibial plateau fracture. She was returned to the floor and made limited progress with physical therapy. Dressing remains dry and intact and distal neurovascular examination is intact. Physical Exam Vital Signs: Temp Pulse Resp BP Pulse Ox 37.4 C 70 20 136/92 H 97 05/07/17 00:00 05/07/17 00:00 05/07/17 00:00 05/07/17 00:00 05/06/17 20:00 Intake & Output 05/05/17 05/06/17 05/07/17 06:59 06:59 06:59 Intake Total 3510 1700 720 Output Total 1475 2425 650 Balance 2035 -725 70 General appearance: PRESENT: no acute distress Head exam: PRESENT: normocephalic Respiratory exam: PRESENT: unlabored Cardiovascular exam: PRESENT: RRR Vascular exam: PRESENT: normal capillary refill GI/Abdominal exam: PRESENT: soft Rectal exam: PRESENT: deferred Musculoskeletal exam: PRESENT: other - Left lower extremity immobilized in a posterior plaster splint. There is brisk cap refill to the digits. Motor function is intact great toe flexion extension, and sensory examination is intact to light touch. Neurological exam: PRESENT: alert, awake, oriented to person, oriented to place , oriented to time, oriented to situation. ABSENT: motor sensory deficit Psychiatric exam: PRESENT: appropriate affect, normal mood. ABSENT: homicidal ideation, suicidal ideation Skin exam: PRESENT: dry, intact, warm. ABSENT: cyanosis, rash Results Laboratory Results: 05/06/17 07:06 05/06/17 07:06 05/06/17 05/06/17 07:06 07:06 WBC 9.7 RBC 3.60 L Hgb 10.6 L Hct 31.7 L MCV 88 MCH 29.5 MCHC 33.5 RDW 13.9 Plt Count 437 Seg Neutrophils % 51.7 Lymphocytes % 32.0 Monocytes % 8.7 Eosinophils % 5.4 Basophils % 2.2 H Absolute Neutrophils 5.0 Absolute Lymphocytes 3.1 Absolute Monocytes 0.8 Absolute Eosinophils 0.5 Absolute Basophils 0.2 Sodium 140.4 Potassium 4.4 Chloride 106 Carbon Dioxide 28 Anion Gap 6 BUN 14 Creatinine 0.62 Est GFR ( Amer) > 60 Est GFR (Non-Af Amer) > 60 Glucose 95 Calcium 8.9 Magnesium 2.2 05/02/17 05/02/17 10:39 10:39 Creatine Kinase 351 H CK-MB (CK-2) 0.49 Troponin I < 0.012 Impressions: Lower Extremity CT 04/28/17 00:00 IMPRESSION: Comminuted fractures of the tibial plateau, tibial shaft and fibular head. Chest X-Ray 04/28/17 05:17 IMPRESSION: No acute radiographic finding in the chest. Fluoroscopy 05/02/17 00:00 IMPRESSION: Please see combined report for performance of procedure and radiologic supervision and interpretation. Tibia/Fibula X-Ray 05/02/17 00:00 IMPRESSION: IMAGE(S) OBTAINED DURING PROCEDURE. Status: Imported from PACS Plan Discharge Plan: Patient to be discharged home with home health nursing, home health physical therapy, wheeled walker, bedside commode. Follow-up will be with Dr. Kirkland in the [facility] for surgery in 2 weeks for staple removal.
[2017-05-07] MEDS: ESCITALOPRAM OXALATE 10 MG TABLET PO SCH (09:22)
[2017-05-07] MEDS: NEBIVOLOL HCL 10 MG TABLET PO SCH (09:22)
[2017-05-07] MEDS: ASPIRIN 81 MG TABLET, CHEWABLE PO SCH (09:23)
[2017-05-07] MEDS: CLONIDINE HCL 0.1 MG TABLET PO SCH (09:23)
[2017-05-07] MEDS: POTASSIUM CHLORIDE 10 MEQ TABLET.SA PO SCH (09:23)
[2017-05-07 12:30] VITALS: BP 136/92
== END 2017-05-07 12:48 | disposition home health service (06) | DRG 493 ==
LOC: ER 04:17 → EH 06:36 → 4S 10:17
PROVIDERS: ADMIT Orthopaedic Surgery; ATTEND Orthopaedic Surgery
PROC: 0KNT0ZZ Release Left Lower Leg Muscle, Open Approach (ICD-10-PCS; 2017-04-28)
PROC: 0KNT0ZZ Release Left Lower Leg Muscle, Open Approach (ICD-10-PCS; 2017-04-28)
PROC: 0KNT0ZZ Release Left Lower Leg Muscle, Open Approach (ICD-10-PCS; 2017-04-28)
PROC: 0KNT0ZZ Release Left Lower Leg Muscle, Open Approach (ICD-10-PCS; 2017-04-28)
PROC: 3E0234Z Introduction of Serum, Toxoid and Vaccine into Muscle, Percutaneous Approach (ICD-10-PCS; 2017-04-28)
PROC: 0QPHX5Z Removal of External Fixation Device from Left Tibia, External Approach (ICD-10-PCS; 2017-05-02)
PROC: 0QSH04Z Reposition Left Tibia with Internal Fixation Device, Open Approach (ICD-10-PCS; principal; 2017-05-02 10:00)
PROC: 30233N1 Transfusion of Nonautologous Red Blood Cells into Peripheral Vein, Percutaneous Approach (ICD-10-PCS; 2017-05-04)
DX: S82.142A Displaced bicondylar fracture of left tibia, initial encounter for closed fracture (principal); T79.A22A Traumatic compartment syndrome of left lower extremity, initial encounter; D62 Acute posthemorrhagic anemia; I10 Essential (primary) hypertension; E11.9 Type 2 diabetes mellitus without complications; K59.00 Constipation, unspecified; W17.89XA Other fall from one level to another, initial encounter; Y92.9 Unspecified place or not applicable; M54.5 Low back pain; R20.0 Anesthesia of skin; E03.9 Hypothyroidism, unspecified; F90.9 Attention-deficit hyperactivity disorder, unspecified type; F41.9 Anxiety disorder, unspecified; F32.9 Major depressive disorder, single episode, unspecified; G89.4 Chronic pain syndrome; E78.00 Pure hypercholesterolemia, unspecified; Z79.891 Long term (current) use of opiate analgesic; Z79.899 Other long term (current) drug therapy; Z90.49 Acquired absence of other specified parts of digestive tract; Z90.710 Acquired absence of both cervix and uterus; Z88.6 Allergy status to analgesic agent; Z88.8 Allergy status to other drugs, medicaments and biological substances; Y93.89 Activity, other specified; Y92.010 Kitchen of single-family (private) house as the place of occurrence of the external cause; Z82.49 Family history of ischemic heart disease and other diseases of the circulatory system; Z23 Encounter for immunization
CPT/HCPCS: 01392; 36415; 36430; 71045; 80048; 82550; 82553; 82962; 83036; 83735; 84439; 84443; 84484; 85025; 85027; 85610; 86850; 86900; 86901; 86920; 90471; 90715; 93005; 93010; 96374; 96376; 99285; C1713; G8978-GP; G8979-GP; J0131; J0330; J0360; J0690; J1100; J1170; J1815; J1885; J2060; J2250; J2270; J2405; J2704; J3010; J3490; J7120; P9016; S0119

== ENCOUNTER 2017-10-02 16:20 | Emergency (ER) | payer MEDICARE, OTHER ==
[2017-10-02] MEDS ORDERED: NORMAL SALINE 1000 ML 1,000 ML IV ONE (17:00)
[2017-10-02] MEDS ORDERED: METOCLOPRAMIDE HCL INJ/PF 10 MG/2 ML SDV IV ONE (17:00)
--- NOTE | 2017-10-02 17:02 | ER Document Report ---
ED Medical Screen (RME) - General Chief Complaint: Vomiting/Diarrhea Stated Complaint: VOMITING Time Seen by Provider: 10/02/17 16:56 Notes: Patient is a 52-year-old female, past medical history chronic pain, presents with 4 days of increased nausea, vomiting and 1 day of left upper quadrant and some left lower quadrant abdominal pain. She has had some watery diarrhea. Difficulty urinating. PE: Tenderness of LUQ and LLQ (limited exam in RME chair) I have greeted and performed a rapid initial assessment of this patient. A comprehensive ED assessment and evaluation of the patient, analysis of test results and completion of the medical decision making process will be conducted by additional ED providers. TRAVEL OUTSIDE OF THE [place] IN LAST 30 DAYS: No - Related Data Allergies/Adverse Reactions: cyclobenzaprine HCl [From Flexeril] Allergy (Verified 10/02/17 16:29) hydromorphone HCl [From Dilaudid] Allergy (Verified 10/02/17 16:29) prochlorperazine edisylate [From Compazine] Allergy (Verified 10/02/17 16:29) Sulfa (Sulfonamide Antibiotics) Allergy (Verified 10/02/17 16:29) tylenol #3 Adverse Reaction (Uncoded 10/02/17 16:29) Past Medical History - Social History Chew tobacco use (# tins/day): No Frequency of alcohol use: None Drug Abuse: None Family history: DM, Hypertension - Past Medical History Cardiac Medical History: Reports: Hx Hypercholesterolemia, Hx Hypertension Endocrine Medical History: Reports: Hx Diabetes Mellitus Type 2, Hx Hypothyroidism Renal/ Medical History: Reports: Hx Kidney Stones. Denies: Hx Peritoneal Dialysis GI Medical History: Reports: Hx Diverticulitis Psychiatric Medical History: Reports: Hx Attention Deficit Hyperactivity Disorder, Hx Depression - anxiety Past Surgical History: Reports: Hx Section, Hx Cholecystectomy, Hx Hysterectomy, Hx Orthopedic Surgery - back x2, left leg, Hx Tonsillectomy - Immunizations Hx Diphtheria, Pertussis, Tetanus Vaccination: Yes History of Influenza Vaccine for 12/2016 - 05/2017 Season: Yes Influenza Administration Date for 12/2016 - 05/2017 Season: 12/24/16 Physical Exam - Vital signs Vitals: Temp Pulse Resp BP Pulse Ox 98.8 F 80 18 145/101 H 95 10/02/17 16:32 10/02/17 16:32 10/02/17 16:32 10/02/17 16:32 10/02/17 16:32 Course - Vital Signs Vital signs: Temp Pulse Resp BP Pulse Ox 98.8 F 80 18 145/101 H 95 10/02/17 16:32 10/02/17 16:32 10/02/17 16:32 10/02/17 16:32 10/02/17 16:32 Doctor's Discharge - Discharge Referrals: MATILDE WOO MD [Primary Care Provider] - Follow up as needed
[2017-10-02] MEDS ORDERED: PROMETHAZINE HCL INJ 25 MG/1 ML VIAL IM ONE (17:03)
[2017-10-02 17:08] LABS: ABSOLUTE BASOPHILS # (AUTO) 0.1 10^3/uL (0.0-0.2); ABSOLUTE LYMPHOCYTES (AUTO) 2.2 10^3/uL (0.5-4.7); ABSOLUTE MONOCYTES (AUTO) 0.6 10^3/uL (0.1-1.4); ABSOLUTE NEUT (AUTO) 9.7 10^3/uL (1.7-8.2); BASOPHILS % (AUTO) 0.6 % (0-2); EOSINOPHILS % (AUTO) 0.1 % (0-6); HEMATOCRIT 48.5 % (36.0-47.0); HEMOGLOBIN 16.3 g/dL (12.0-15.5); LYMPHOCYTES % (AUTO) 17.5 % (13-45); MEAN CORPUSCULAR HEMOGLOBIN 29.7 pg (27.0-33.4); MEAN CORPUSCULAR HGB CONC 33.5 g/dL (32.0-36.0); MEAN CORPUSCULAR VOLUME 89 fl (80-97); MONOCYTES % (AUTO) 4.8 % (3-13); PLATELET COUNT 342 10^3/uL (150-450); RED BLOOD COUNT 5.48 10^6/uL (3.72-5.28); RED CELL DISTRIBUTION WIDTH 15.5 % (11.5-14.0); TOTAL CELLS COUNTED % (AUTO) 100 %; WHITE BLOOD COUNT 12.6 10^3/uL (4.0-10.5)
[2017-10-02 17:12] LABS: ALANINE AMINOTRANSFERASE 18 U/L (9-52); ALBUMIN 5.2 g/dL (3.5-5.0); ALKALINE PHOSPHATASE 107 U/L (38-126); ASPARTATE AMINO TRANSFERASE 17 U/L (14-36); BILIRUBIN,DIRECT 0.8 mg/dL (0.0-0.4); BILIRUBIN,TOTAL 1.9 mg/dL (0.2-1.3); BLOOD UREA NITROGEN 19 mg/dL (7-20); CALCIUM 10.2 mg/dL (8.4-10.2); GLUCOSE 73 mg/dL (75-110); LIPASE 54.5 U/L (23-300); POTASSIUM 3.8 mmol/L (3.6-5.0); TOTAL PROTEIN 8.7 g/dL (6.3-8.2)
[2017-10-02 17:18] LABS: ANION GAP 22 (5-19); CARBON DIOXIDE 23 mmol/L (22-30); CHLORIDE 103 mmol/L (98-107); SODIUM 147.9 mmol/L (137-145)
--- NOTE | 2017-10-02 17:53 | RADIOLOGY REPORT (SQ) ---
EXAM DESCRIPTION: CT ABD/PELVIS WITH IV ONLY COMPLETED DATE/TIME: 10/02/2017 5:40 pm REASON FOR STUDY: LUQ, LLQ pain, N/V COMPARISON: None. TECHNIQUE: CT scan of the abdomen and pelvis performed using helical scanning technique with dynamic intravenous contrast injection. No oral contrast. Images reviewed with lung, soft tissue, and bone windows. Reconstructed coronal and sagittal MPR images reviewed. Delayed images for evaluation of the urinary system also acquired. All images stored on PACS. All CT scanners at this facility use dose modulation, iterative reconstruction, and/or weight based d osing when appropriate to reduce radiation dose to as low as reasonably achievable (ALARA). [facility]: Dose Right [facility]: CareDose [facility]: Dose Right [facility]: Teradose 4D [facility]: [employer] CONTRAST TYPE AND DOSE: contrast/concentration: Isovue 370.00 mg/ml; Total Contrast Delivered: 100.0 ml; Total Saline Delivered: 32.3 ml RENAL FUNCTION: BUN 19 creatinine 0.77 RADIATION DOSE: CT Rad equipment meets quality standard of care and radiation dose reduction techniq ues were employed. CTDIvol: 9.4 - 12.3 mGy. DLP: 1163 mGy-cm.. LIMITATIONS: None. FINDINGS: LOWER CHEST: No significant findings. No nodules or infiltrates. LIVER: Normal size. No masses. No dilated ducts. SPLEEN: Normal size. No focal lesions. PANCREAS: No masses. No significant calcifications. No adjacent inflammation or peripancreatic fluid collections. Pancreatic duct not dilated. GALLBLADDER: Surgically absent. ADRENAL GLANDS: No significant masses or asymmetry. RIGHT KIDNEY AND URETER: No solid masses. No significant calcifications. No hydronephrosis or hyd roureter. LEFT KIDNEY AND URETER: No solid masses. No significant calcifications. No hydronephrosis or hydr oureter. AORTA AND VESSELS: No aneurysm. No dissection. Renal arteries, SMA, celiac without stenosis. RETROPERITONEUM: No retroperitoneal adenopathy, hemorrhage or masses. BOWEL AND PERITONEAL CAVITY: No masses or inflammatory changes. No free fluid or peritoneal masses. APPENDIX: Normal. PELVIS: No mass. No free fluid. Normal bladder. ABDOMINAL WALL: No masses. No hernias. BONES: Schmorl's node at L4. Disc implant at L5-S1. OTHER: No other significant finding. IMPRESSION: NO SIGNIFICANT OR ACUTE FINDING IN THE ABDOMEN OR PELVIS ON CT SCAN WITH IV CONTRAST. TECHNICAL DOCUMENTATION: JOB ID: [id number] Quality ID # [id number]: Final reports with documentation of one or more dose reduction techniques (e.g., Au tomated exposure control, adjustment of the mA and/or kV according to patient size, use of iterative reconstruction technique) 2010 [employer]- All Rights Reserved Reading location - IP/workstation name: [email or web address]
--- NOTE | 2017-10-02 18:19 | ER Document Report ---
ED General - General Mode of Arrival: Ambulatory Information source: Patient TRAVEL OUTSIDE OF THE [place] IN LAST 30 DAYS: No <ORQUIDEA ROLDAN - Last Filed: 10/02/17 19:36> <HEAVENLY ELIZABETH - Last Filed: 10/02/17 19:38> - General Chief Complaint: Vomiting/Diarrhea Stated Complaint: VOMITING Time Seen by Provider: 10/02/17 16:56 Notes: Patient is a 52 y.o female with a PMHx of HLD, HTN, type 2 DM, hypothyroidism, chronic pain, kidney stones, diverticulitis and a PSHx of cholecystectomy and Hysterectomy. She presents to the ED today with 3 days of increased nausea and vomiting and 1 day LUQ and LLQ pain. Pt states that there are small streaks of blood in her vomit. She also c/o not urinating since yesterday and some watery/ runny diarrhea. Pt reports this pain and N/V/D similar to when she had Diverticulitis once before. Pt reports a temperature of 98.8 and states that she normally has a low temperature. She denies any contact with anyone of known similar sx but reports that she has been around many people lately and believes she could have caught a bug from someone. (ORQUIDEA ROLDAN) - Related Data Allergies/Adverse Reactions: cyclobenzaprine HCl [From Flexeril] Allergy (Verified 10/02/17 16:29) hydromorphone HCl [From Dilaudid] Allergy (Verified 10/02/17 16:29) prochlorperazine edisylate [From Compazine] Allergy (Verified 10/02/17 16:29) Sulfa (Sulfonamide Antibiotics) Allergy (Verified 10/02/17 16:29) tylenol #3 Adverse Reaction (Uncoded 10/02/17 16:29) Past Medical History - General Information source: Patient - Social History Smoking Status: Current Every Day Smoker Chew tobacco use (# tins/day): No Smoking Education Provided: Yes Frequency of alcohol use: None Drug Abuse: Marijuana Family History: Hypertension Patient has suicidal ideation: No Patient has homicidal ideation: No - Past Medical History Cardiac Medical History: Reports: Hx Hypercholesterolemia, Hx Hypertension Endocrine Medical History: Reports: Hx Diabetes Mellitus Type 2, Hx Hypothyroidism Renal/ Medical History: Reports: Hx Kidney Stones. Denies: Hx Peritoneal Dialysis GI Medical History: Reports: Hx Diverticulitis Psychiatric Medical History: Reports: Hx Attention Deficit Hyperactivity Disorder, Hx Depression - anxiety Past Surgical History: Reports: Hx Section, Hx Cholecystectomy, Hx Hysterectomy, Hx Orthopedic Surgery - back x2, left leg, Hx Tonsillectomy - Immunizations Hx Diphtheria, Pertussis, Tetanus Vaccination: Yes <ORQUIDEA ROLDAN - Last Filed: 10/02/17 19:36> Review of Systems - Review of Systems Constitutional: See HPI. denies: Fever - 98.8 temperature (which pt states is a "fever" for her) EENT: No symptoms reported Cardiovascular: No symptoms reported Respiratory: No symptoms reported Gastrointestinal: See HPI, Abdominal pain, Diarrhea, Nausea, Vomiting, Blood in vomit - "small streaks of blood" Genitourinary: See HPI - no urination since yesterday Female Genitourinary: No symptoms reported Musculoskeletal: No symptoms reported Skin: No symptoms reported Hematologic/Lymphatic: No symptoms reported Neurological/Psychological: No symptoms reported -: Yes All other systems reviewed and negative <ORQUIDEA ROLDAN - Last Filed: 10/02/17 19:36> Physical Exam <ORQUIDEA ROLDAN - Last Filed: 10/02/17 19:36> <HEAVENLY ELIZABETH - Last Filed: 10/02/17 19:38> - Vital signs Vitals: Temp Pulse Resp BP Pulse Ox 98.8 F 80 18 145/101 H 95 10/02/17 16:32 10/02/17 16:32 10/02/17 16:32 10/02/17 16:32 10/02/17 16:32 - Notes Notes: PHYSICAL EXAM GENERAL: Alert, interacts well. No acute distress. HEAD: Normocephalic, atraumatic. EYES: Pupils equal, round, and reactive to light. Extraocular movements intact. ENT: Oral mucosa moist, tongue midline. NECK: Full range of motion. Supple. Trachea midline. LUNGS: Clear to auscultation bilaterally, no wheezes, rales, or rhonchi. No respiratory distress. HEART: Regular rate and rhythm. No murmurs, gallops, or rubs. ABDOMEN: Soft, non-distended. Bowel sounds present in all 4 quadrants. Epigastric tenderness to palpation without guarding, rebound, or rigidity. EXTREMITIES: Moves all 4 extremities spontaneously. No edema, radial and dorsalis pedis pulses 2/4 bilaterally. No cyanosis. NEUROLOGICAL: Alert and oriented x3. Normal speech. PSYCH: Normal affect, normal mood. SKIN: Warm, dry, normal turgor. No rashes or lesions noted. (ORQUIDEA ROLDAN) Course - Laboratory Result Diagrams: 10/02/17 15:45 10/02/17 15:45 <ORQUIDEA ROLDAN - Last Filed: 10/02/17 19:36> - Laboratory Result Diagrams: 10/02/17 15:45 10/02/17 15:45 <HEAVENLY ELIZABETH - Last Filed: 10/02/17 19:38> - Re-evaluation Re-evalutation: 10/02/17 19:32 CBC shows leukocytosis at 12.6 and hemoconcentration with a hemoglobin of 16.3, chemistries show somewhat elevated sodium 147.9, anion gap is elevated at 22 however BUN and creatinine are normal, CO2 is normal, there may be some ketosis related to dehydration, total and direct bilirubin are both elevated at 1.9 and 0.8 respectively, LFTs are otherwise normal, lipase normal, CT scan of the abdomen pelvis does not show any evidence of diverticulitis, gallbladder is surgically absent, there is no other evidence of focal bacterial or surgical process. Patient's vomiting was controlled here with Phenergan. Patient has run out of Zofran at home. Patient's abdomen is mildly tender in the epigastrium but there is no laboratory or radiologic evidence of pancreatitis. Patient was able to keep down ice chips, Imodium and viscous lidocaine to help with her abdominal pain. Patient will be discharged to home. Suspect viral process but patient has been instructed to return for worsening symptoms. Small streaks of blood in the vomit are likely due to Ce-Gaffney tears from protracted vomiting. (HEAVENLY ELIZABETH) - Vital Signs Vital signs: Temp Pulse Resp BP Pulse Ox 98.8 F 80 18 145/101 H 95 10/02/17 16:32 10/02/17 16:32 10/02/17 16:32 10/02/17 16:32 10/02/17 16:32 - Laboratory Laboratory results interpreted by me: 10/02/17 10/02/17 15:45 15:45 WBC 12.6 H RBC 5.48 H Hgb 16.3 H Hct 48.5 H RDW 15.5 H Absolute Neutrophils 9.7 H Sodium 147.9 H Anion Gap 22 H Glucose 73 L Total Bilirubin 1.9 H Direct Bilirubin 0.8 H Total Protein 8.7 H Albumin 5.2 H Discharge <ORQUIDEA ROLDAN - Last Filed: 10/02/17 19:36> <HEAVENLY ELIZABETH - Last Filed: 10/02/17 19:38> - Discharge Clinical Impression: Nausea vomiting and diarrhea, Ce-Gaffney tear, Hematemesis with nausea Condition: Stable Disposition: HOME, SELF-CARE Instructions: Diarrhea, Nonspecific ([facility]), Vomiting ([facility]) Prescriptions: Ondansetron [Zofran Odt 4 mg Tablet] 1 - 2 tab PO Q4H PRN #15 tab.rapdis PRN Reason: For Nausea/Vomiting Referrals: MATILDE WOO MD [Primary Care Provider] - Follow up as needed Scribe Attestation: 10/02/17 19:38 I personally performed the services described in the documentation, reviewed and edited the documentation which was dictated to the scribe in my presence, and it accurately records my words and actions. (HEAVENLY ELIZABETH) Scribe Documentation - Scribe Written by Juan:: Juan Vo 10/02/17 1822 acting as scribe for :: Tadeo <ORQUIDEA ROLDAN - Last Filed: 10/02/17 19:36>
[2017-10-02] MEDS ORDERED: LOPERAMIDE HCL 2 MG CAPSULE PO ONE (18:23)
[2017-10-02] MEDS ORDERED: MAG HYDROX/AL HYDROX/SIMETH SUSP 30 ML UDCUP PO ONE (18:23)
[2017-10-02] MEDS ORDERED: LIDOCAINE 2% VISCOUS SOLN 20 ML UDCUP PO ONE (18:23)
[2017-10-02 19:44] VITALS: BP 142/92
== END 2017-10-02 19:44 | disposition home or self-care (01) ==
LOC: ER 16:20
DX: K22.6 Gastro-esophageal laceration-hemorrhage syndrome (principal); R19.7 Diarrhea, unspecified; R10.12 Left upper quadrant pain; R10.32 Left lower quadrant pain; R10.816 Epigastric abdominal tenderness; I10 Essential (primary) hypertension; E11.9 Type 2 diabetes mellitus without complications; F17.200 Nicotine dependence, unspecified, uncomplicated; Z87.19 Personal history of other diseases of the digestive system; Z87.442 Personal history of urinary calculi; Z88.8 Allergy status to other drugs, medicaments and biological substances; Z88.5 Allergy status to narcotic agent; Z88.2 Allergy status to sulfonamides; Z88.6 Allergy status to analgesic agent; Z90.49 Acquired absence of other specified parts of digestive tract
CPT/HCPCS: 99284; 96372; 96360; 36415; 83690; 85025; 80053; 74177; J3490; A9270; J2550; J7030

== ENCOUNTER 2018-02-04 11:32 | Day surgery (SDC) | payer MEDICARE, BC, OTHER ==
[~2018-02-04 11:32] MED LIST: CEFAZOLIN 2 GM/D5W RTU 2 GM/50 ML RTUPB IV PRN
[2018-02-04] MEDS ORDERED: CEFAZOLIN 2 GM/D5W RTU 2 GM/50 ML RTUPB IV ONE (11:39)
[2018-02-04 12:05] LABS: APPEARANCE,URINE CLEAR; BILIRUBIN,URINE NEGATIVE (NEGATIVE); COLOR,URINE YELLOW; GLUCOSE, URINE NEGATIVE (NEGATIVE); KETONES,URINE NEGATIVE (NEGATIVE); LEUKOCYTE ESTERASE,URINE NEGATIVE (NEGATIVE); NITRITE,URINE NEGATIVE (NEGATIVE); PROTEIN,URINE NEGATIVE (NEGATIVE); URINE SPECIFIC GRAVITY 1.016; UROBILINOGEN,URINE NEGATIVE mg/dL (<2.0)
[2018-02-04] MEDS ORDERED: BUPIVACAINE HCL 0.5%-EPI 1:200000 INJ/PF 30 ML VIAL ONE (12:32)
[2018-02-04 13:00] LABS: HEMATOCRIT 37.8 % (36.0-47.0); HEMOGLOBIN 12.5 g/dL (12.0-15.5); MEAN CORPUSCULAR HEMOGLOBIN 30.8 pg (27.0-33.4); MEAN CORPUSCULAR HGB CONC 33.1 g/dL (32.0-36.0); MEAN CORPUSCULAR VOLUME 93 fl (80-97); PLATELET COUNT 246 10^3/uL (150-450); RED BLOOD COUNT 4.06 10^6/uL (3.72-5.28); RED CELL DISTRIBUTION WIDTH 15.7 % (11.5-14.0); WHITE BLOOD COUNT 6.9 10^3/uL (4.0-10.5)
[2018-02-04 13:20] LABS: ANION GAP 9 (5-19); BLOOD UREA NITROGEN 14 mg/dL (7-20); CALCIUM 9.3 mg/dL (8.4-10.2); CARBON DIOXIDE 27 mmol/L (22-30); CHLORIDE 109 mmol/L (98-107); GLUCOSE 97 mg/dL (75-110); POTASSIUM 4.5 mmol/L (3.6-5.0); SODIUM 144.8 mmol/L (137-145)
[2018-02-04] MEDS ORDERED: PROPOFOL INJ 200 MG/20 ML VIAL IV ONE (13:44)
[2018-02-04] MEDS ORDERED: FENTANYL CITRATE INJ/PF 100 MCG/2 ML AMPUL ONE (13:44)
[2018-02-04] MEDS ORDERED: MIDAZOLAM 2 MG/2 ML INJ ONE (13:44)
[2018-02-04] MEDS ORDERED: BUPIVACAINE HCL/DEX-WATER/PF 15 MG/2 ML AMPULE ONE (14:34)
[2018-02-04] MEDS ORDERED: DEXAMETHASONE SOD PHOSPHATE INJ 4 MG/1 ML VIAL ONE (15:24)
[2018-02-04] MEDS ORDERED: ONDANSETRON HCL INJ/PF 4 MG/2 ML SDV ONE (15:24)
[2018-02-04] MEDS ORDERED: PROMETHAZINE HCL INJ 25 MG/1 ML VIAL IV PRN ×2 (16:04)
[2018-02-04] MEDS ORDERED: ONDANSETRON HCL INJ/PF 4 MG/2 ML SDV IV PRN (16:04)
[2018-02-04] MEDS ORDERED: FENTANYL CITRATE INJ/PF 100 MCG/2 ML AMPUL IV PRN ×3 (16:04)
[2018-02-04] MEDS ORDERED: MEPERIDINE HCL/PF INJ 25 MG/1 ML DISP.SYRIN IV PRN (16:04)
[2018-02-04] MEDS ORDERED: MORPHINE SULFATE 10 MG/ML INJ IV PRN (16:04)
[2018-02-04] MEDS ORDERED: DIPHENHYDRAMINE HCL 50 MG/ML VIAL IV PRN (16:04)
--- NOTE | 2018-02-04 16:46 | Operative Report ---
Operative Report DATE OF SURGERY: 02/04/18 PREOPERATIVE DIAGNOSIS: Status post left tibial plateau fracture and open reduction internal fixation with retained hardware OPERATION: Hardware removal left tibia, 9 screws and 1 plate SURGEON: RASHAD JARRETT ANESTHESIA: GA TISSUE REMOVED OR ALTERED: 9 screws and 1 plate to CSS ESTIMATED BLOOD LOSS: 200 PROCEDURE: The patient supine and operative table the left lower extremities prepped and draped sterile fashion. Limb is elevated for exsanguination tourniquet inflated to 280 torr. A curvilinear incision made over the proximal left tibia in line with the previous surgical approach. Sharp dissection was carried incision down to the underlying plate. There is considerable bleeding that is difficult to control with electrocautery. It is decided that there is subsequently a venous tourniquet and the tourniquet is deflated. The bleeding attenuates dramatically. 9 screws and 1 plate are subsequently removed without difficulty. The wounds irrigated with bulb lavage. The wounds are closed with interrupted Vicryl followed by tracee. A sterile compressive dressing was applied and the patient's return to PACU in satisfactory condition.
[2018-02-04] MEDS: MORPHINE SULFATE 10 MG/ML INJ ONE ×5 (16:56→17:25)
[2018-02-04] MEDS ORDERED: RINGERS SOLUTION,LACTATED 1,000 ML IV PRN (16:57)
[2018-02-04] MEDS ORDERED: ACETAMINOPHEN 1,000 MG/100 ML RTUPB IV ONE (17:05)
[2018-02-04] MEDS ORDERED: PROMETHAZINE HCL INJ 25 MG/1 ML VIAL ONE (17:16)
--- NOTE | 2018-02-04 19:07 | RADIOLOGY REPORT (SQ) ---
EXAM DESCRIPTION: NO CHG FLUORO COMPLETE DATE/TIME: 02/04/2018 6:02 pm REASON FOR STUDY: HARDWARE REMOVAL LT KNEE T84.398A [facility] COMPL OF OTH BONE DEVICES, IMPLANTS AND GR AFTS FINDINGS: Please see combined report for performance of procedure and radiologic supervision and int erpretation. IMPRESSION: Please see combined report for performance of procedure and radiologic supervision and i nterpretation. Reading location - IP/workstation name: [email or web address]
--- NOTE | 2018-02-04 19:07 | RADIOLOGY REPORT (SQ) ---
EXAM DESCRIPTION: KNEE LEFT 2 VIEWS COMPLETED DATE/TIME: 02/04/2018 6:02 pm REASON FOR STUDY: HARDWARE REMOVAL LT KNEE T84.398A [facility] COMPL OF OTH BONE DEVICES, IMPLANTS AND GR AFTS COMPARISON: None. FLUOROSCOPY TIME: 0.1 minutes 2 images saved to PACS. TECHNIQUE: Intra-operative images acquired during surgical procedure to evaluate progress. NUMBER OF IMAGES: 2 image LIMITATIONS: None. FINDINGS: Fluoroscopic images were obtained during removal of orthopedic hardware. Please refer to the surgeon's operative report for additional information. IMPRESSION: IMAGE(S) OBTAINED DURING PROCEDURE. COMMENT: Quality ID [id number]: Final reports for procedures using fluoroscopy that document radiation exp osure indices, or exposure time and number of fluorographic images (if radiation exposure indices are not available) Please consult full operative report of the attending physician for description of the procedure. TECHNICAL DOCUMENTATION: JOB ID: [id number] [employer]- All Rights Reserved Reading location - IP/workstation name: [email or web address]
[2018-02-04] MEDS: OXYCODONE HCL IR 5 MG TABLET PO PRN (19:12)
--- NOTE | 2018-02-04 20:10 | EKG REPORT ---
SEVERITY:- NORMAL ECG - SINUS RHYTHM : Confirmed by: Rosalie Tubbs 04-Feb-2018 20:09:25
[2018-02-04] MEDS: MORPHINE SULFATE 10 MG/ML INJ IV PRN (22:49)
[2018-02-04] MEDS: CEFAZOLIN 2 GM/D5W RTU 2 GM/50 ML RTUPB IV SCH (22:50)
[2018-02-05] MEDS: OXYCODONE HCL IR 5 MG TABLET PO PRN ×3 (02:38→14:29)
[2018-02-05] MEDS: MORPHINE SULFATE 10 MG/ML INJ IV PRN (03:39)
[2018-02-05] MEDS: CEFAZOLIN 2 GM/D5W RTU 2 GM/50 ML RTUPB IV SCH (05:45)
--- NOTE | 2018-02-05 07:30 | PDOC PROGRESS REPORT ---
Subjective Progress Note for:: 02/05/18 Reason For Visit: T84.398A [facility] COMPL OF OTH BONE DEVICES, IMPLANTS 53-year-old white female now postop day 1 status post hardware removal from the left tibia which resulted from a tibial plateau fracture. Patient with complaints of pain overnight and has not yet seen physical therapy. Physical Exam Vital Signs: Temp Pulse Resp BP Pulse Ox 36.8 C 82 16 122/76 97 02/04/18 23:25 02/04/18 23:25 02/04/18 23:25 02/04/18 23:25 02/04/18 23:25 Intake & Output 02/04/18 02/05/18 02/06/18 06:59 06:59 06:59 Intake Total 2108 Output Total 90 Balance 2018 Weight 95.1 kg General appearance: PRESENT: no acute distress, mild distress, obese, well- nourished Head exam: PRESENT: normocephalic Respiratory exam: PRESENT: unlabored Cardiovascular exam: PRESENT: RRR Pulses: PRESENT: +1 pedal pulses bilateral Vascular exam: PRESENT: normal capillary refill GI/Abdominal exam: PRESENT: soft Rectal exam: PRESENT: deferred Extremities exam: PRESENT: other - Left lower extremity dressing change today. Wound is well approximated tracee. There is no active drainage. There is modest soft tissue swelling. Distal neurovascular examination is intact. Results Laboratory Results: 02/04/18 12:49 02/04/18 12:49 02/04/18 02/04/18 02/04/18 11:55 12:49 12:49 WBC 6.9 RBC 4.06 Hgb 12.5 Hct 37.8 MCV 93 MCH 30.8 MCHC 33.1 RDW 15.7 H Plt Count 246 Sodium 144.8 Potassium 4.5 Chloride 109 H Carbon Dioxide 27 Anion Gap 9 BUN 14 Creatinine 0.59 Est GFR ( Amer) > 60 Est GFR (Non-Af Amer) > 60 Glucose 97 Calcium 9.3 Urine Color YELLOW Urine Appearance CLEAR Urine pH 6.0 Ur Specific Hunker 1.016 Urine Protein NEGATIVE Urine Glucose (UA) NEGATIVE Urine Ketones NEGATIVE Urine Blood NEGATIVE Urine Nitrite NEGATIVE Ur Leukocyte Esterase NEGATIVE Urine WBC (Auto) 0 Urine RBC (Auto) 0 Impressions: Fluoroscopy 02/04/18 00:00 IMPRESSION: Please see combined report for performance of procedure and radiologic supervision and interpretation. Knee X-Ray 02/04/18 00:00 IMPRESSION: IMAGE(S) OBTAINED DURING PROCEDURE. Status: Imported from PACS Assessment & Plan - Diagnosis (1) Tibial plateau fracture, left Qualifiers: Encounter type: sequela Fracture type: closed Qualified Code(s): S82.142S - Displaced bicondylar fracture of left tibia, sequela Is this a current diagnosis for this admission?: Yes Plan: Status post hardware removal. Mobilization with physical therapy today increased analgesic medication. Anticipate discharge home tomorrow. - Time Time Spent with patient: 15-24 minutes Anticipated discharge: Home with Homehealth Within: within 24 hours
[2018-02-05] MEDS: OXYCODONE HCL SR 10 MG TABLET PO SCH ×2 (09:01→21:12)
[2018-02-05] MEDS ORDERED: OXYCODONE HCL IR 5 MG TABLET PO ONE (13:00)
[2018-02-05] MEDS ORDERED: OXYCODONE HCL SR 10 MG TABLET PO ONE (20:45)
[2018-02-06] MEDS: OXYCODONE HCL IR 5 MG TABLET PO PRN (03:26)
--- NOTE | 2018-02-06 07:00 | PDOC DISCHARGE SUMMARY ---
General - Admit/Disc Date/PCP Admission Date/Primary Care Provider: MATILDE WOO MD Discharge Date: 02/06/18 - Discharge Diagnosis (1) Tibial plateau fracture, left Is this a current diagnosis for this admission?: Yes - Additional Information Home Medications: Clonidine HCl [Catapres 0.2 mg Tablet] 0.2 mg PO DAILYP PRN 02/04/18 Duloxetine HCl [Cymbalta] 30 mg PO Q12 02/04/18 Levothyroxine Sodium [Synthroid 0.1 mg Tablet] 0.1 mg PO Q6AM 02/04/18 Nebivolol HCl [Bystolic 10 mg Tablet] 10 mg PO DAILY 02/04/18 Omeprazole 20 mg PO DAILYP PRN 02/04/18 Ondansetron [Zofran Odt 4 mg Tablet] 4 mg PO Q4HP PRN 02/04/18 Promethazine HCl [Phenergan 25 mg Tablet] 25 mg PO Q6HP PRN 02/04/18 History of Present Illness History of Present Illness: MIKKI CHAVEZ is a 53 year old female The patient is a 53-year-old white female status post open reduction internal fixation of a left tibial plateau fracture. The patient subsequent developed posttraumatic arthrosis. As part of a two-stage reconstruction patient is now admitted for hardware removal with anticipated total knee arthroplasty once this wound is healed. Hospital Course Hospital Course: Patient is admitted through the operating room where she undergoes uncomplicated left tibial hardware removal. Postoperatively she has some drainage from the wound and pain which is difficult to control. She is subsequent seen by physical therapy and mobilized. By the second postoperative day she is ready for discharge home on a touchdown weightbearing restriction. Physical Exam Vital Signs: Temp Pulse Resp BP Pulse Ox 36.5 C 73 16 120/72 100 02/05/18 23:30 02/05/18 23:30 02/05/18 23:30 02/05/18 23:30 02/05/18 23:30 Intake & Output 02/04/18 02/05/18 02/06/18 06:59 06:59 06:59 Intake Total 2108 998 Output Total 90 Balance 2017 998 Weight 95.1 kg 95.7 kg General appearance: PRESENT: no acute distress, mild distress, obese, well- nourished Head exam: PRESENT: normocephalic Respiratory exam: PRESENT: unlabored Cardiovascular exam: PRESENT: RRR Pulses: PRESENT: +1 pedal pulses bilateral Vascular exam: PRESENT: normal capillary refill GI/Abdominal exam: PRESENT: soft Rectal exam: PRESENT: deferred Musculoskeletal exam: PRESENT: other - Left knee dressing clean dry and intact. Distal neurovascular examination is intact. Neurological exam: PRESENT: alert, awake, oriented to person, oriented to place , oriented to time, oriented to situation. ABSENT: motor sensory deficit Psychiatric exam: PRESENT: appropriate affect, normal mood. ABSENT: homicidal ideation, suicidal ideation Skin exam: PRESENT: dry, intact, warm. ABSENT: cyanosis, rash Results Laboratory Results: 02/04/18 12:49 02/04/18 12:49 Impressions: Fluoroscopy 02/04/18 00:00 IMPRESSION: Please see combined report for performance of procedure and radiologic supervision and interpretation. Knee X-Ray 02/04/18 00:00 IMPRESSION: IMAGE(S) OBTAINED DURING PROCEDURE. Status: Imported from PACS Qualifiers - * PATIENT BEING DISCHARGED WITH ANY OF THE FOLLOWING DIAGNOSIS: No VTE patient discharged on overlapping Therapy?: Yes Plan Discharge Plan: Patient be discharged home on a touchdown weightbearing restriction with home health services and DME. Follow-up with Dr. Marita Rodriges Conway for surgery in 1 week Time Spent: Less than 30 Minutes
[2018-02-06 07:51] VITALS: BP 154/92
[2018-02-06] MEDS: OXYCODONE HCL SR 10 MG TABLET PO SCH (09:24)
== END 2018-02-06 10:33 | disposition home health service (06) ==
LOC: OROUT 11:32 → 4S 18:12 → OROUT 02-06 10:33
PROVIDERS: ATTEND Orthopaedic Surgery
DX: T84.398A Other mechanical complication of other bone devices, implants and grafts, initial encounter (principal); M17.32 Unilateral post-traumatic osteoarthritis, left knee; S82.142S Displaced bicondylar fracture of left tibia, sequela; X58.XXXS Exposure to other specified factors, sequela; F17.210 Nicotine dependence, cigarettes, uncomplicated; E11.9 Type 2 diabetes mellitus without complications; E07.9 Disorder of thyroid, unspecified; Z01.818 Encounter for other preprocedural examination; Z88.5 Allergy status to narcotic agent; Z88.8 Allergy status to other drugs, medicaments and biological substances; Z79.899 Other long term (current) drug therapy
CPT/HCPCS: 20680; 36415; 82962; 85027; 80048; 81001; 83036; 73560; 93005; 93010; 97530; 97116 ×2; 97163; J2250; J3490; J1100; J3010; J2270 ×2; J2550; A9270 ×5; J2405; J2704; J0690 ×2; J0131; G8978; G8979; 01392

== ENCOUNTER 2018-02-11 12:55 | Emergency (ER) | payer MEDICARE, BC, OTHER ==
--- NOTE | 2018-02-11 13:54 | ER Document Report ---
ED Medical Screen (RME) - General Chief Complaint: Chest Pain Stated Complaint: CHEST PAIN Time Seen by Provider: 02/11/18 13:38 Notes: Patient is a 53-year-old female that presents to the emergency department for chief complaint of chest pain. Patient states she started having chest pain yesterday, on the left side chest radiating to the back, no shortness of breath , she also states she has had some swelling in the leg, and her blood pressure was elevated earlier today. She had recent surgery on her left lower extremity , for hardware replacement. ROS: Other than noted above, the 12 point review of systems was reviewed with the patient and were negative, all pertinent findings are included in the HPI. PHYSICAL EXAMINATION: Vital signs reviewed. GENERAL: Well-appearing, well-nourished and in no acute distress. HEAD: Atraumatic, normocephalic. EYES: Pupils equal round extraocular movements intact, conjunctiva are normal. ENT: Nares patent NECK: Normal range of motion CV: Heart regular rate and rhythm LUNGS: No respiratory distress Musculoskeletal: There is generalized edema in the left lower extremity, no erythema, patient has surgical dressing over the left lower extremity, mild tenderness with palpation, the right lower extremity and bilateral upper extremities are unremarkable. NEUROLOGICAL: Normal speech PSYCH: Normal mood, normal affect. MDM: Patient seen and examined for rapid initial assessment. Vital signs reviewed. A comprehensive ED assessment and evaluation of the patient, analysis of test results and completion of the medical decision making process will be conducted by additional ED providers. *Note is created using voice recognition software and may contain spelling, syntax or grammatical errors. TRAVEL OUTSIDE OF THE [place] IN LAST 30 DAYS: No - Related Data Allergies/Adverse Reactions: cyclobenzaprine HCl [From Flexeril] Allergy (Verified 10/02/17 16:29) hydromorphone HCl [From Dilaudid] Allergy (Verified 10/02/17 16:29) prochlorperazine edisylate [From Compazine] Allergy (Verified 10/02/17 16:29) Sulfa (Sulfonamide Antibiotics) Allergy (Verified 10/02/17 16:29) tylenol #3 Adverse Reaction (Uncoded 10/02/17 16:29) Past Medical History - Social History Chew tobacco use (# tins/day): No Frequency of alcohol use: Occasional Drug Abuse: Marijuana Family history: DM, Hypertension - Past Medical History Cardiac Medical History: Reports: Hx Hypercholesterolemia, Hx Hypertension Denies: Hx Coronary Artery Disease, Hx Heart Attack Pulmonary Medical History: Reports: Hx Asthma Denies: Hx Bronchitis, Hx COPD, Hx Pneumonia Neurological Medical History: Denies: Hx Cerebrovascular Accident, Hx Seizures Endocrine Medical History: Reports: Hx Diabetes Mellitus Type 2, Hx Hypothyroidism Renal/ Medical History: Reports: Hx Kidney Stones. Denies: Hx Peritoneal Dialysis GI Medical History: Reports: Hx Diverticulitis Musculoskeltal Medical History: Denies Hx Arthritis Psychiatric Medical History: Reports: Hx Attention Deficit Hyperactivity Disorder, Hx Depression - anxiety Past Surgical History: Reports: Hx Section, Hx Cholecystectomy, Hx Hysterectomy, Hx Orthopedic Surgery - back x2, left leg, Hx Tonsillectomy - Immunizations Hx Diphtheria, Pertussis, Tetanus Vaccination: Yes History of Influenza Vaccine for 12/2016 - 05/2017 Season: Yes Influenza Administration Date for 12/2016 - 05/2017 Season: 12/24/17 Physical Exam - Vital signs Vitals: Temp Pulse Resp BP Pulse Ox 98.5 F 69 16 122/72 96 02/11/18 13:25 02/11/18 13:25 02/11/18 13:25 02/11/18 13:25 02/11/18 13:25 Course - Vital Signs Vital signs: Temp Pulse Resp BP Pulse Ox 98.5 F 69 16 122/72 96 02/11/18 13:25 02/11/18 13:25 02/11/18 13:25 02/11/18 13:25 02/11/18 13:25 Doctor's Discharge - Discharge Referrals: MATILDE WOO MD [Primary Care Provider] - Follow up as needed
[2018-02-11 14:25] LABS: HEMATOCRIT 36.9 % (36.0-47.0); HEMOGLOBIN 12.6 g/dL (12.0-15.5); MEAN CORPUSCULAR HEMOGLOBIN 31.5 pg (27.0-33.4); MEAN CORPUSCULAR VOLUME 93 fl (80-97); PLATELET COUNT 404 10^3/uL (150-450); RED BLOOD COUNT 3.99 10^6/uL (3.72-5.28); RED CELL DISTRIBUTION WIDTH 15.7 % (11.5-14.0); WHITE BLOOD COUNT 8.9 10^3/uL (4.0-10.5)
[2018-02-11 14:35] LABS: INTERNATIONAL RATION (INR) 0.84
[2018-02-11 14:47] LABS: ALANINE AMINOTRANSFERASE 60 U/L (9-52); ALBUMIN 4.2 g/dL (3.5-5.0); ALKALINE PHOSPHATASE 105 U/L (38-126); ANION GAP 8 (5-19); ASPARTATE AMINO TRANSFERASE 54 U/L (14-36); BILIRUBIN,DIRECT 0.4 mg/dL (0.0-0.4); BILIRUBIN,TOTAL 0.6 mg/dL (0.2-1.3); BLOOD UREA NITROGEN 12 mg/dL (7-20); CALCIUM 9.4 mg/dL (8.4-10.2); CARBON DIOXIDE 29 mmol/L (22-30); CHLORIDE 107 mmol/L (98-107); CREATINE KINASE 74 U/L (30-135); GLUCOSE 101 mg/dL (75-110); POTASSIUM 4.2 mmol/L (3.6-5.0); SODIUM 144.3 mmol/L (137-145); TOTAL PROTEIN 7.6 g/dL (6.3-8.2)
--- NOTE | 2018-02-11 14:49 | RADIOLOGY REPORT (SQ) ---
EXAM DESCRIPTION: CHEST 2 VIEWS COMPLETED DATE/TIME: 02/11/2018 2:37 pm REASON FOR STUDY: chest pain COMPARISON: 03/13/2016 EXAM PARAMETERS: NUMBER OF VIEWS: two views TECHNIQUE: Digital Frontal and Lateral radiographic views of the chest acquired. RADIATION DOSE: NA LIMITATIONS: none FINDINGS: LUNGS AND PLEURA: No opacities, masses or pneumothorax. No pleural effusion. MEDIASTINUM AND HILAR STRUCTURES: No masses or contour abnormalities. HEART AND VASCULAR STRUCTURES: Heart normal size. No evidence for failure. BONES: No acute findings. HARDWARE: None in the chest. OTHER: No other significant finding. IMPRESSION: NO ACUTE RADIOGRAPHIC FINDING IN THE CHEST. TECHNICAL DOCUMENTATION: JOB ID: [id number] [employer]- All Rights Reserved Reading location - IP/workstation name: [email or web address]
[2018-02-11 14:50] LABS: ABSOLUTE LYMPHOCYTES# (MANUAL) 3.3 10^3/uL (0.5-4.7); ABSOLUTE MONOCYTES # (MANUAL) 0.4 10^3/uL (0.1-1.4); ABSOLUTE NEUTROPHILS# (MANUAL) 4.8 10^3/uL (1.7-8.2); BASOPHILS % (MANUAL) 3 % (0-2); EOSINOPHILS % (MANUAL) 2 % (0-6); LYMPHOCYTES % (MANUAL) 36 % (13-45); MONOCYTES % (MANUAL) 4 % (3-13); SEGMENTED NEUTROPHILS % (MAN) 54 % (42-78); TOTAL CELLS COUNTED 100
[2018-02-11 14:52] LABS: ANISOCYTOSIS SLIGHT; OVALOCYTES SLIGHT; PLATELET COMMENT ADEQUATE; POIKILOCYTOSIS 1+; POLYCHROMASIA SLIGHT; STOMATOCYTES SLIGHT; TEAR DROP CELLS SLIGHT
[2018-02-11 15:00] LABS: TROPONIN I < 0.012 ng/mL
--- NOTE | 2018-02-11 16:00 | RADIOLOGY REPORT (SQ) ---
EXAM DESCRIPTION: VENOUS UNILATERAL LOWER COMPLETED DATE/TIME: 02/11/2018 3:50 pm REASON FOR STUDY: left lower extremity swelling, recent surgery COMPARISON: None. TECHNIQUE: Dynamic and static dickey scale and color images acquired of the left leg venous system. Se lected spectral images acquired with additional compression and augmentation maneuvers. The contralat eral common femoral vein and saphenofemoral junction were also imaged. Images stored on PACS. LIMITATIONS: None. FINDINGS: COMMON FEMORAL: Normal phasicity, compression and augmentation. No visualized echogenic ma terial on dickey scale. No defects on color images. FEMORAL: Normal compression and augmentation. No visualized echogenic material on dickey scale. No defe cts on color images. POPLITEAL: Normal compression, augmentation. No visualized echogenic material on dickey scale. No defec ts on color images. CALF VESSELS: Normal compression, augmentation. No visualized echogenic material on dickey scale. No de fects on color images. GSV and SSV: Normal compression, augmentation. No visualized echogenic material on dickey scale. No def ects on color images. ANY DEEP VENOUS INSUFFICIENCY: No. ANY EVIDENCE OF POPLITEAL CYST: No. OTHER: No other significant finding. CONTRALATERAL COMMON FEMORAL VEIN AND SAPHENOFEMORAL JUNCTION: Normal phasicity, compression and augmentation. No visualized echogenic material on dickey scale. No de fects on color images. IMPRESSION: NO EVIDENCE DVT OR SVT IN THE LEFT LEG. TECHNICAL DOCUMENTATION: JOB ID: [id number] [employer]- All Rights Reserved Reading location - IP/workstation name: [email or web address]
--- NOTE | 2018-02-11 17:13 | ER Document Report ---
ED General - General Chief Complaint: Chest Pain Stated Complaint: CHEST PAIN Time Seen by Provider: 02/11/18 13:38 TRAVEL OUTSIDE OF THE [place] IN LAST 30 DAYS: No - HPI Patient complains to provider of: Chest pain Notes: Patient coming in for evaluation of chest pain. Patient is approximately 1 week postop from having surgery performed. Patient states she has failed with this yesterday. Patient otherwise upon my evaluation is resting comfortably. Patient denies any new physical activity. Patient denies any cardiac history. Patient otherwise denies any fever chills nausea vomiting diarrhea - Related Data Allergies/Adverse Reactions: cyclobenzaprine HCl [From Flexeril] Allergy (Verified 10/02/17 16:29) hydromorphone HCl [From Dilaudid] Allergy (Verified 10/02/17 16:29) prochlorperazine edisylate [From Compazine] Allergy (Verified 10/02/17 16:29) Sulfa (Sulfonamide Antibiotics) Allergy (Verified 10/02/17 16:29) tylenol #3 Adverse Reaction (Uncoded 10/02/17 16:29) Past Medical History - Social History Smoking Status: Current Some Day Smoker Chew tobacco use (# tins/day): No Frequency of alcohol use: Occasional Drug Abuse: Marijuana Family History: Hypertension Patient has suicidal ideation: No Patient has homicidal ideation: No - Past Medical History Cardiac Medical History: Reports: Hx Hypercholesterolemia, Hx Hypertension Denies: Hx Coronary Artery Disease, Hx Heart Attack Pulmonary Medical History: Reports: Hx Asthma Denies: Hx Bronchitis, Hx COPD, Hx Pneumonia Neurological Medical History: Denies: Hx Cerebrovascular Accident, Hx Seizures Endocrine Medical History: Reports: Hx Diabetes Mellitus Type 2, Hx Hypothyroidism Renal/ Medical History: Reports: Hx Kidney Stones. Denies: Hx Peritoneal Dialysis GI Medical History: Reports: Hx Diverticulitis Musculoskeletal Medical History: Denies Hx Arthritis Psychiatric Medical History: Reports: Hx Attention Deficit Hyperactivity Disorder, Hx Depression - anxiety Past Surgical History: Reports: Hx Section, Hx Cholecystectomy, Hx Hysterectomy, Hx Orthopedic Surgery - back x2, left leg, Hx Tonsillectomy - Immunizations Hx Diphtheria, Pertussis, Tetanus Vaccination: Yes Review of Systems - Review of Systems Constitutional: No symptoms reported EENT: No symptoms reported Cardiovascular: Chest pain Respiratory: No symptoms reported Gastrointestinal: No symptoms reported Genitourinary: No symptoms reported Female Genitourinary: No symptoms reported Musculoskeletal: No symptoms reported Skin: No symptoms reported Hematologic/Lymphatic: No symptoms reported Neurological/Psychological: No symptoms reported -: Yes All other systems reviewed and negative Physical Exam - Vital signs Vitals: Temp Pulse Resp BP Pulse Ox 98.5 F 69 16 122/72 96 02/11/18 13:25 02/11/18 13:25 02/11/18 13:25 02/11/18 13:25 02/11/18 13:25 Interpretation: Normal - General General appearance: Appears well, Alert - HEENT Head: Normocephalic, Atraumatic Eyes: Normal Pupils: PERRL - Respiratory Respiratory status: No respiratory distress Chest status: Nontender Breath sounds: Normal Chest palpation: Normal - Cardiovascular Rhythm: Regular Heart sounds: Normal auscultation Murmur: No - Abdominal Inspection: Normal Distension: No distension Bowel sounds: Normal Tenderness: Nontender Organomegaly: No organomegaly - Back Back: Normal, Nontender - Extremities General upper extremity: Normal inspection, Nontender, Normal color, Normal ROM , Normal temperature General lower extremity: Nontender, Normal color, Normal ROM, Normal temperature , Normal weight bearing. No: Normal inspection - Surgical dressing left leg, Derrick's sign - Neurological Neuro grossly intact: Yes Cognition: Normal Orientation: AAOx4 Cynthia Coma Scale Eye Opening: Spontaneous Cynthia Coma Scale Verbal: Oriented [place] Coma Scale Motor: Obeys Commands [place] Coma Scale Total: 15 Speech: Normal Motor strength normal: LUE, RUE, LLE, RLE Sensory: Normal - Psychological Associated symptoms: Normal affect, Normal mood - Skin Skin Temperature: Warm Skin Moisture: Dry Skin Color: Normal Course - Re-evaluation Re-evalutation: 02/11/18 23:01 Patient coming in for evaluation of chest pain. Patient had Dopplers performed showing no DVT. At this time do not suspect PE. EKG troponins otherwise negative. Patient was able tolerate a hamburger while here in the ER. Unclear etiology for the patient's pain however does seem to be low risk for ACS. Patient will be discharged home the patient has atypical chest pain as the patient's chest pain is not suggestive of pulmonary embolus, cardiac ischemia, aortic dissection, or other serious etiology. Given the extremely low risk of these diagnoses further testing and evaluation for these possibilities does not appear to be indicated at this time. The patient has been instructed to return if the symptoms worsen or change in any way. - Vital Signs Vital signs: Temp Pulse Resp BP Pulse Ox 98.3 F 68 18 121/86 H 100 02/11/18 17:15 02/11/18 17:15 02/11/18 17:15 02/11/18 17:15 02/11/18 17:15 - Laboratory Result Diagrams: 02/11/18 14:08 02/11/18 14:08 Laboratory results interpreted by me: 02/11/18 02/11/18 14:08 14:08 RDW 15.7 H Basophils % (Manual) 3 H Abs Basophils (Manual) 0.3 H AST 54 H ALT 60 H Discharge - Discharge Clinical Impression: Chest pain of uncertain etiology Condition: Good Disposition: HOME, SELF-CARE Instructions: Chest Wall Pain ([facility]), Chest Pain of Unclear Cause ([facility]) Additional Instructions: At this time your EKG or troponin your chest x-ray your venous Doppler studies not show any signs of ischemia heart damage infection no signs of blood clots. Does not have a direct reason for your pain at this time. Would recommend following up with your primary care physician. Return to ER symptoms worsen. Please continue all home medications as previous to prescribed. Referrals: MATILDE WOO MD [Primary Care Provider] - Follow up as needed
[2018-02-11 17:45] VITALS: BP 121/86
--- NOTE | 2018-02-11 21:55 | EKG REPORT ---
SEVERITY:- NORMAL ECG - SINUS RHYTHM : Confirmed by: Romy Dumont MD 11-Feb-2018 21:54:49
== END 2018-02-11 17:15 | disposition home or self-care (01) ==
LOC: ER 12:55
DX: R07.9 Chest pain, unspecified (principal); Z98.890 Other specified postprocedural states; F17.200 Nicotine dependence, unspecified, uncomplicated; I10 Essential (primary) hypertension; J45.909 Unspecified asthma, uncomplicated; E11.9 Type 2 diabetes mellitus without complications
CPT/HCPCS: 36415; 71046; 80053; 82550; 82553; 84484; 85025; 85610; 93005; 93010; 93971; 99285

== ENCOUNTER → 2018-03-05 | Outpatient (CLI) | payer MEDICARE, BC, OTHER ==
--- NOTE | 2018-03-05 13:00 | RADIOLOGY REPORT (SQ) ---
EXAM DESCRIPTION: CHEST PA/LATERAL COMPLETED DATE/TIME: 03/05/2018 12:39 pm REASON FOR STUDY: PRE-OP COMPARISON: 02/11/2018 EXAM PARAMETERS: NUMBER OF VIEWS: two views TECHNIQUE: Digital Frontal and Lateral radiographic views of the chest acquired. RADIATION DOSE: NA LIMITATIONS: none FINDINGS: LUNGS AND PLEURA: No opacities, masses or pneumothorax. No pleural effusion. MEDIASTINUM AND HILAR STRUCTURES: No masses or contour abnormalities. HEART AND VASCULAR STRUCTURES: Heart normal size. No evidence for failure. BONES: No acute findings. HARDWARE: None in the chest. OTHER: Prior cholecystectomy. IMPRESSION: No evidence of acute cardiopulmonary process. TECHNICAL DOCUMENTATION: JOB ID: [id number] [employer]- All Rights Reserved Reading location - IP/workstation name: [email or web address]
--- NOTE | 2018-03-05 13:05 | EKG REPORT ---
SEVERITY:- NORMAL ECG - SINUS RHYTHM : Confirmed by: Romy Dumont MD 05-Mar-2018 13:05:09
[2018-03-05 13:42] LABS: ABSOLUTE BASOPHILS # (AUTO) 0.1 10^3/uL (0.0-0.2); ABSOLUTE EOSINOPHILS # (AUTO) 0.3 10^3/uL (0.0-0.6); ABSOLUTE LYMPHOCYTES (AUTO) 2.8 10^3/uL (0.5-4.7); ABSOLUTE MONOCYTES (AUTO) 0.5 10^3/uL (0.1-1.4); BASOPHILS % (AUTO) 1.2 % (0-2); EOSINOPHILS % (AUTO) 3.7 % (0-6); HEMATOCRIT 41.9 % (36.0-47.0); HEMOGLOBIN 14.2 g/dL (12.0-15.5); LYMPHOCYTES % (AUTO) 32.6 % (13-45); MEAN CORPUSCULAR HEMOGLOBIN 31.2 pg (27.0-33.4); MEAN CORPUSCULAR HGB CONC 33.9 g/dL (32.0-36.0); MEAN CORPUSCULAR VOLUME 92 fl (80-97); MONOCYTES % (AUTO) 5.4 % (3-13); PLATELET COUNT 341 10^3/uL (150-450); RED BLOOD COUNT 4.55 10^6/uL (3.72-5.28); RED CELL DISTRIBUTION WIDTH 15.5 % (11.5-14.0); SEGMENTED NEUTROPHILS % (AUTO) 57.1 % (42-78); TOTAL CELLS COUNTED % (AUTO) 100 %; WHITE BLOOD COUNT 8.7 10^3/uL (4.0-10.5)
[2018-03-05 13:52] LABS: APPEARANCE,URINE CLEAR; BILIRUBIN,URINE NEGATIVE (NEGATIVE); COLOR,URINE YELLOW; GLUCOSE, URINE NEGATIVE (NEGATIVE); KETONES,URINE NEGATIVE (NEGATIVE); LEUKOCYTE ESTERASE,URINE NEGATIVE (NEGATIVE); NITRITE,URINE NEGATIVE (NEGATIVE); PROTEIN,URINE NEGATIVE (NEGATIVE); URINE SPECIFIC GRAVITY 1.008; UROBILINOGEN,URINE NEGATIVE mg/dL (<2.0)
[2018-03-05 14:00] LABS: ADD MANUAL MICROSCOPIC YES
[2018-03-05 14:04] LABS: ANION GAP 12 (5-19); BLOOD UREA NITROGEN 18 mg/dL (7-20); CALCIUM 10.3 mg/dL (8.4-10.2); CARBON DIOXIDE 29 mmol/L (22-30); CHLORIDE 104 mmol/L (98-107); GLUCOSE 105 mg/dL (75-110); POTASSIUM 4.2 mmol/L (3.6-5.0); SODIUM 145.2 mmol/L (137-145)
[2018-03-05 14:07] LABS: BACTERIA,URINE 1+ /HPF; RBC,URINE 0-1 /HPF; WBC,URINE 0-1 /HPF
== END ==
LOC: OD 12:08
PROVIDERS: ATTEND Orthopaedic Surgery
DX: Z01.818 Encounter for other preprocedural examination (principal); E11.9 Type 2 diabetes mellitus without complications
CPT/HCPCS: 36415; 71046; 80048; 81001; 83036; 85025; 93005; 93010

== ENCOUNTER → 2018-08-08 | Outpatient (CLI) | payer MEDICARE, OTHER ==
--- NOTE | 2018-08-08 09:39 | ST Modified Barium Swallow ---
Recommendation - Recommendations Recommendations: Normal oral and pharyngeal phase swallowing seen. No dysphagia treatment indicated. Reviewed reflux precautions. Medical Diagnoses - Medical Diagnoses Medical Diagnosis Description & ICD-10 Code(s): R13.10 dysphagia Other Medical Diagnoses/Co-Morbidities: per patient report: thyroid dysfunction, type 2 diabetes, reflux [address] Modified Barium Swallow - General Date: 08/08/18 Referring Physician: Dr. Woodall Risks/Precautions: None Date of Onset: 12/24/17 Reason for Referral: dysphagia - History History obtained from: Patient -: Medical - Per patient report: Reports globus sensation, chronic but increasing at meals, starting in December of 2017. Patient subsequently was ill with chronic coughing in March, states globus was worse after this. Patient reports worse in the morning, as well as driness and coughing in the mornings. Patient does report that she sleep propped up at night. Patient is also being followed by ENT due to possible removal of tonsils, and being followed for thyroid issues and lympnodes. Medications: per patient report: synthroid, motrin, adderall, bystolic, lasix as needed Allergies: per patient report: flexerol, reglin - Functional Status Prior Functional Status: INDEPENDENT: feeding Current Functional Limitations: feeding - Subjective Patient/caregiver goal(s): r/o struct. abnormality Cognitive-Linguistic Function: WNL Speech Intelligibility: WNL Current Nutritional Means: PO Current PO diet: Regular Current symptoms: c/o Globus sensation Pain: Patient reports, 0/5 - Objective Assessment: Upright, Left Lateral - Food Trials Used Food trials used: Thin liquids, Pureed, Regular The patient: Was Able to Self Feed - Oral-Motor Skills Dentition: Dentures-Upper Velo-pharyngeal function: Unremarkable Laryngeal Function: clear voicing - Assessment Oral prep: Normal Labial closure: Adequate Leakage: None Mastication: Adequate Lingual Movement: Normal Oral stage: Normal for this Procedure - Pharyngeal Stage Initiation of Pharyngeal Stage Reflex: Normal Decreased laryngeal elevation: No Reduced Velopharyngeal Closure: no Reduced pressure generation: No reduced tongue-based retraction: No Pre-swallow pooling in valleculae: None Pre-Swallow pooling in pyriforms: None Reduced Thyro-Hyoid approximation: No Reduced epiglottic excursion: No Reduced pharyngeal peristalsis/contraction: No Post-swallow residulas vallecular: None Post-Swallow residuals in pyriforms: None Reduced Cricopharyngeal opening: No - Fall Risk Assessment Medications/Conditions that increase fall risks include: Antidepressants, sedatives, anti-arrhythmic, diuretic, benzodiazipenes, neuroleptics. BP regulation problems, cardiac problems, balance or gait deficits, neurological problems. Is patient considered at risk for falls: no Fall Risk Actions Taken: No action needed - Behavioral Observations During evaluation process patient: was pleasant, was cooperative, provided medical history - Treatment / Educational Needs: Treatment/Education Needs: Treatment consisted of patient education on the role of the Speech Pathologist. Patient's plan of care and golas were communicated as well as scheduling and attendance policies. Recommendations for initial home program were shared. Patient demonstrated understanding and verbalized agreement. - Impression/Summary Laryngeal Penetration: No Tracheal Aspiration: no Patient presents with: Normal swallow at eval Risk of Aspiration: Minimal - Recommendations Solid diet recommendations: Regular Liquid Diet Modification: Thin Pt/Family education and followup with MD: Yes Dysphagia therapy with [facility]: no Reflux Precautions: Taught to Patient Information, Precautions and Recommendations: Patient (Written), Patient (Verbal) - Time Total Time: 30 - Plan of Care Strategies to optimize patient understanding include:: ongoing assessment of educational needs, implementation of educational strategies, and re-education. - - -: Thank you for the opportunity to work with this patient and his/her family. Should you have any questions about this patient's plan or progress, I can be reached at [phone].
--- NOTE | 2018-08-08 10:11 | RADIOLOGY REPORT (SQ) ---
EXAM DESCRIPTION: VINAYAKIE SWALLOW COMPLETED DATE/TIME: 08/08/2018 9:22 am REASON FOR STUDY: DYSPHAGIA (R13.10) E04.2 NONTOXIC MULTINODULAR GOITER R13.10 DYSPHAGIA, UNSPECIF IED globus sensation COMPARISON: None. TECHNIQUE: Videofluoroscopic swallowing examination was performed in conjunction with speech patholo gy. Videofluoroscopic imaging was obtained and reviewed and these are the findings: RADIATION DOSE: 54 seconds of fluoroscopy was used. 1 images saved to PACS. LIMITATIONS: None FINDINGS: The patient was brought into the fluoro room and placed upright on a modified barium swall ow chair. The patient was then given multiple consistencies mixed with barium to swallow under live fluoroscopic video guidance. According to the Speech Pathologist there was no penetration or aspirat ion. IMPRESSION: NO EVIDENCE OF PENETRATION OR ASPIRATION. PLEASE SEE SPEECH PATHOLOGIST REPORT FOR OTHER FINDINGS AND RECOMMENDATIONS. COMMENT: Quality ID 145: Final reports for procedures using fluoroscopy that document radiation exp osure indices, or exposure time and number of fluorographic images (if radiation exposure indices are not available) TECHNICAL DOCUMENTATION: JOB ID: [id number] [employer]- All Rights Reserved Reading location - IP/workstation name: [email or web address]
--- NOTE | 2018-08-08 10:18 | RADIOLOGY REPORT (SQ) ---
EXAM DESCRIPTION: CT SOFT TISSUE NECK WITH COMPLETED DATE/TIME: 08/08/2018 8:53 am REASON FOR STUDY: DYSPHAGIA (R13.10), NONTOXIC MULTINODULAR GOITER (E04.2) E04.2 NONTOXIC MULTINODU LAR GOITER R13.10 DYSPHAGIA, UNSPECIFIED COMPARISON: None. TECHNIQUE: Post IV contrasted scanning from skull base through lung apices with review of bone, soft tissue and lung windows. Reconstructed coronal and sagittal MPR images reviewed. All images stored on PACS. All CT scanners at this facility use dose modulation, iterative reconstruction, and/or weight based d osing when appropriate to reduce radiation dose to as low as reasonably achievable (ALARA). [facility]: Dose Right [facility]: CareDose [facility]: Dose Right [facility]: Teradose 4D [facility]: Ascendant Dx CONTRAST TYPE AND DOSE: contrast/concentration: Isovue 350.00 mg/ml; Total Contrast Delivered: 75.0 ml; Total Saline Delivered: 41.1 ml RENAL FUNCTION: GFR > 60. RADIATION DOSE: . LIMITATIONS: None. FINDINGS: SKULL BASE: Intact. MAJOR SALIVARY GLANDS: No solid or cystic masses. No inflammatory changes. LYMPHADENOPATHY: No adenopathy. MUCOSAL MASSES OR ASYMMETRY: No mucosal masses or asymmetry. LARYNX/CORDS: No abnormal findings. VASCULAR STRUCTURES: The major vessels are patent. LUNG APICES: Clear. BONES: Intact. THYROID: Normal size. No masses. PARANASAL SINUSES: Clear. OTHER: No other significant finding. IMPRESSION: NO SIGNIFICANT FINDING IN THE SOFT TISSUES OF THE NECK. TECHNICAL DOCUMENTATION: JOB ID: [id number] Quality ID # [id number]: Final reports with documentation of one or more dose reduction techniques (e.g., Au tomated exposure control, adjustment of the mA and/or kV according to patient size, use of iterative reconstruction technique) 2010 [employer]- All Rights Reserved Reading location - IP/workstation name: [email or web address]
== END ==
LOC: RAD 07:46
PROVIDERS: ATTEND Otolaryngology
DX: E04.2 Nontoxic multinodular goiter (principal); R13.10 Dysphagia, unspecified
CPT/HCPCS: 70491; 74230; 82565